=== PATIENT | female | born 1955 | race Caucasian/White ===

== ENCOUNTER → 2017-03-09 08:15 | Outpatient (CLI) | payer BC, SELFPAY ==
--- NOTE | 2017-03-09 08:19 | MM_ITS ---
MM Dig screening mamm BI w/CAD CAD Screening COMPARISON: Digital mammograms 10/27/2014 and 01/31/2016 INDICATION: There is no personal or family history of breast cancer. There is been previous biopsy left breast for benign disease TECHNIQUE: Standard CC and MLO images were obtained. R2 CAD reviewed. FINDINGS: Minimal scattered fibroglandular densities are seen throughout both breasts. There are stable small nodular density upper outer quadrant right breast and there is a benign-appearing calcification right breast. There is a mole marker left breast inner quadrant. There is no suspicious lesion and there are no suspicious microcalcifications. IMPRESSION: Stable exam with no suspicious lesion seen recommend yearly follow-up BI-RADS Category: 2 Benign Finding(s) RECOMMENDED FOLLOW-UP: 1YR - 1 YEAR FOLLOW-UP (A letter has been sent to the patient regarding results of the study.)
== END ==
PROVIDERS: Family Provider Family Medicine; Visit Provider Family Medicine
DX: Z12.31 Encounter for screening mammogram for malignant neoplasm of breast (principal)
CPT/HCPCS: 77067

== ENCOUNTER → 2017-05-24 13:28 | Outpatient (CLI) | payer BC, SELFPAY ==
[2017-05-24 15:00] LABS: Alanine Aminotransferase 41 U/L (12-78); Albumin Level 4.3 gm/dL (3.4-5.0); Alkaline Phosphatase 122 U/L (46-116); Aspartate Amino Transferase 26 U/L (15-37); Bilirubin,Direct 0.1 mg/dL (0.0-0.2); Bilirubin,Total 0.3 mg/dL (0.2-1.0); Total Protein,Serum 7.7 gm/dL (6.4-8.2)
== END ==
PROVIDERS: Visit Provider Podiatrist Foot & Ankle Surgery
DX: Z51.81 Encounter for therapeutic drug level monitoring (principal); Z79.899 Other long term (current) drug therapy
CPT/HCPCS: 36415; 80076

== ENCOUNTER 2018-05-13 08:00 | Outpatient (RCR) | payer BC, SELFPAY | END 2018-05-13 08:05 | disposition home or self-care (01) | LOC: PT 08:00 | PROVIDERS: Visit Provider Orthopaedic Surgery | DX: M67.929 Unspecified disorder of synovium and tendon, unspecified upper arm (principal) | CPT/HCPCS: 97014; 97033; 97035; 97110; 97163; G0283 ==

== ENCOUNTER 2018-07-09 08:00 | Outpatient (RCR) | payer BC, SELFPAY | END 2018-07-09 08:05 | disposition home or self-care (01) | LOC: PT 08:00 | PROVIDERS: Visit Provider Orthopaedic Surgery | DX: M67.929 Unspecified disorder of synovium and tendon, unspecified upper arm (principal); M75.81 Other shoulder lesions, right shoulder; M77.10 Lateral epicondylitis, unspecified elbow | CPT/HCPCS: 97010; 97014; 97033; 97035; 97110; 97140; 97163; G0283 ==

== ENCOUNTER 2019-01-14 08:00 | Outpatient (RCR) | payer BC, SELFPAY | END 2019-01-14 08:05 | disposition home or self-care (01) | LOC: PT 08:00 | PROVIDERS: PCP Family Medicine; Visit Provider Nurse Practitioner Family | DX: M67.929 Unspecified disorder of synovium and tendon, unspecified upper arm (principal); M75.81 Other shoulder lesions, right shoulder | CPT/HCPCS: 97010; 97014; 97016; 97033; 97035; 97110; 97140; 97163; 97164; G0283 ==

== ENCOUNTER → 2019-02-14 09:17 | Outpatient (CLI) | payer BC, SELFPAY ==
--- NOTE | 2019-02-14 09:21 | MM_ITS ---
PROCEDURE: MM DIG SCREENING MAMM BI W/CAD Patient Age:63Y CLINICAL INDICATION: SCREENING 63-year-old. Takes estrogen. Previous excisional biopsy left breast biopsy, with scar noted upper-outer quadrant portion of periareolar region. Family history unremarkable COMPARISON: DMSB DIGITAL MAMM-SCREEN BILATERAL from 03/06/2011 DMSB DIGITAL MAMM-SCREEN BILATERAL from 05/22/2012 DMSB DIG MAMM-SCREEN KASSANDRA from 09/04/2013 DMSB DIG MAMM-SCREEN KASSANDRA from 10/27/2014 BR US BREAST-RT COMPLETE W/AXILLA from 11/05/2014 DMDXUAVR DIG MAMM-DX UNI ADD VIEWS-RT from 11/05/2014 DMSB DIG MAMM-SCREEN KASSANDRA from 01/31/2016 [facility] MM Dig screening mamm BI w/CAD from 03/09/2017 TECHNIQUE: Standard CC and MLO images were obtained. R2 CAD reviewed. FINDINGS: Minimal residual fibroglandular elements with [id number] diffuse fatty replacement. No new dominant mass nor new suspicious mass. No the suspicious calcifications. Left breast appear stable.no new areas of significant concern Minimal fibroglandular elements lateral retroareolar region Right breast no significant new areas of concern when multiple studies are compared. Small area of nodularity at the lateral breast seen on mammogram from 2014 and appear stable as to other minor areas of asymmetry . Bilateral follow-up 1 year adequate IMPRESSION: No new areas of concern . Stable mammogram. Bilateral follow-up 1 year recommended, and should be emphasized/encouraged, particularly with estrogen history BI-RAD Category: 2 Benign Finding(s) FOLLOW-UP: 1YR 1 Year Follow-up (A letter has been sent to the patient regarding results of the study.) Dictated by: German Mims MD 02/17/2019 14:33 Electronically signed by German Mims MD in [place] 02/17/2019 14:33
== END ==
PROVIDERS: PCP Family Medicine; Visit Provider Obstetrics & Gynecology Gynecology
DX: Z12.31 Encounter for screening mammogram for malignant neoplasm of breast (principal)
CPT/HCPCS: 77067

== ENCOUNTER → 2019-07-07 15:42 | Outpatient (CLI) | payer BC, SELFPAY ==
--- NOTE | 2019-07-07 15:49 | XR_ITS ---
PROCEDURE: XR KNEE RT 3V CLINICAL INDICATION: RIGHT KNEE PAIN Twisting injury with pain COMPARISON: No exams were available for comparison FINDINGS: There are minimal osteoarthritic changes noted with mild spurring of the tibial spines. There is an subtle extra bony density at the medial joint space and could be due to a loose body. Mild osteoarthritic changes are present at the patellofemoral joint. IMPRESSION: Mild osteoarthritis with possible loose body at the medial joint space Dictated by: Gold Bender MD 07/07/2019 16:01 Electronically signed by Gold Bender MD in [place] 07/07/2019 16:01
== END ==
PROVIDERS: PCP Family Medicine; Visit Provider Family Medicine
DX: M25.561 Pain in right knee (principal); M25.461 Effusion, right knee
CPT/HCPCS: 73562

== ENCOUNTER 2019-09-16 08:30 | Outpatient (RCR) | payer BC, SELFPAY | END 2019-09-16 08:35 | disposition home or self-care (01) | LOC: PT 08:30 | PROVIDERS: Visit Provider Orthopaedic Surgery | DX: M25.561 Pain in right knee (principal) | CPT/HCPCS: 97010; 97014; 97033; 97035; 97110; 97140; 97163; 97530; G0283 ==

== ENCOUNTER → 2019-10-21 15:11 | Outpatient (POV) | payer BC, SELFPAY | PROVIDERS: Visit Provider Dermatology | DX: Z00.00 Encounter for general adult medical examination without abnormal findings (principal) ==

== ENCOUNTER → 2020-04-30 14:09 | Outpatient (CLI) | payer BC, SELFPAY ==
--- NOTE | 2020-04-30 | XR_ITS ---
PROCEDURE: XR HIP LT 2-3V W/PELVIS CLINICAL INDICATION: LT HIP PAIN COMPARISON: CR [id number] HIP RT 2-3V W/PELVIS IF PERFOR from 09/12/2016 FINDINGS: Minimal osteoarthritic changes are present involving the left hip. No acute fracture or dislocation. No lytic or blastic change. Pelvic phleboliths are present along with surgical clips in the pelvis and there is also minimal arthritic change of the right hip as seen on the AP view of the pelvis. IMPRESSION: Minimal osteoarthritic change of the hips overall not significantly changed Dictated by: Gold Bender MD 04/30/2020 14:58 Gold Bender MD in [place] 04/30/2020 14:58
--- NOTE | 2020-04-30 | XR_ITS ---
PROCEDURE: XR KNEE LT 3V CLINICAL INDICATION: PAIN IN LT KNEE COMPARISON: CR XR KNEE RT 3V from 07/07/2019 FINDINGS: No fracture or dislocation. No lytic or blastic change. There is normal mineralization. There are minimal osteoarthritic changes involving the medial compartment and patellofemoral joint Other findings:None. IMPRESSION: Minimal osteoarthritis Dictated by: Gold Bender MD 04/30/2020 14:59 Gold Bender MD in [place] 04/30/2020 14:59
== END ==
PROVIDERS: PCP Physician Assistant; Visit Provider Family Medicine
DX: M25.552 Pain in left hip (principal); M25.562 Pain in left knee
CPT/HCPCS: 73502; 73562

== ENCOUNTER 2020-05-31 18:55 | Emergency (ER) | payer BC, SELFPAY ==
[2020-05-31 19:05] VITALS: BP 189/96; PULSE 91; RESP 19; TEMP 36.9; O2SAT 100; BMI 32.4
--- NOTE | 2020-05-31 19:26 | HMH.EDUTC ---
[facility] [place] Disposition Clinical Impression: UTI (urinary tract infection) Qualifiers: Urinary tract infection type: site unspecified Hematuria presence: with hematuria Qualified Code(s): N39.0 - Urinary tract infection, site not specified Disposition: Home, Self-Care Condition on Discharge: Good Instructions: Urinary Tract Infection, DI for Urinary Tract Infection (UTI), Ciprofloxacin Additional Instructions: *Increase fluids. Water not Soda or Tea *Start antibiotic immediately and be sure to take as ordered for the FULL length of time although you should start to see improvement over the next 48 hours *Pyridium as needed Remember this medication will turn your urine Stephens. This is normal but it will stain what ever it gets on *You should not use Pyridium for more than 48 hours. If so , follow up with your primary physician to review urine culture and ensure that antibiotic is adequate for infection *Be SURE to follow up anytime for new or worsening symptoms with your family doctor. AND in 48 hours for urine culture results with your family doctor, if you do not have a doctor then you may call back to the [facility] for urine culture results and further treatment. We do recommend that you choose and establish care with a Primary Care Physician. AND follow up with them in 10-14 days to repeat UA to ensure infection is resolved and blood no longer present *Be sure to let your PCP know that we sent urine cultures from the [facility] so they can follow up to ensure that you area the on the correct antibiotic Call your doctor office and make appointment for 48 hours (2 days from today) to follow up and get the results of your urine culture and further treatment Return if needed Straight to ER if any life threatening Prescriptions: Ciprofloxacin HCl [Cipro 250mg Tab] 250 mg PO BID 3 Days #6 tab Transmission Status: Received by [facility] Phenazopyridine HCl [Pyridium 200mg Tablet] 200 pow PO TID #6 tab Transmission Status: Received by [facility] Referrals: Gill Lobato PA [Primary Care Provider] - As needed Time of Disposition: 19:45 Medical Decision Making - Melo Inquiry Pt receiving controlled substance: No Melo was queried for this patient: No Vital Signs: 05/31/20 19:05 05/31/20 19:53 Temperature 98.4 F 98.4 F Temperature Source Oral Pulse Rate 91 H Pulse Rate [Right Brachial] 91 H Respiratory Rate 19 19 Blood Pressure 189/96 H Blood Pressure [Right Arm] 189/96 H Blood Pressure Mean [Right Arm] 127 Blood Pressure Source [Right Arm] Automatic Cuff Blood Pressure Position [Right Arm] Sitting 02 Sat by Pulse Oximetry 100 Oxygen Delivery Method Room Air - Lab Data Lab results reviewed: Yes: I reviewed the patient's lab results. Lab Results 05/31/20 19:18: Urine Color Yellow, Urine Appearance Clear, Urine pH 5.5, Ur Specific [place] 1.005, Urine Protein Negative, Urine Glucose (UA) Negative, Urine Ketones Negative, Urine Blood 3+, Urine Nitrate Negative, Urine Bilirubin Negative, Urine Urobilinogen 0.2, Ur Leukocyte Esterase 2+ A Orders (Tests/Meds): ORDERS Category Date Time Status Urine Culture Stat Micro 05/31/20 19:00 Received Medical Decision Narrative: Patient reports that she has taken macrobid before for UTI and it did not work and did not want that medication State that her UTI got worse after taking it States that she has taken Cipro in the past without complications or reactions medications discussed pharmacy Denies history of kidney stones Discussed with patient and patient verbalized understanding to make sure to follow up with PCP in the next 48 hours for Urine cutlure results and further treatment and testing if needed [facility] [place] HPI - General Stated complaint: possible uti Time Seen by Provider: 05/31/20 19:26 Mode of Arrival: Ambulatory Source of Information: Patient Limitations: No Limitations Description of Symptoms (Recalled from Triage Doc. by RN): PATIENT C/O BURNING
[2020-05-31 19:49] LABS: Apearance,Urine Clear (Clear); Bilirubin,Urine Negative (Negative); Blood, Urine 3+ (Negative); Color,Urine Yellow (Yellow); Glucose,Urine (UA) Negative (Negative); Ketones,Urine Negative (Negative); PH,Urine 5.5 (5.0-8.5); Protein,Urine Negative (Negative); Specific Gravity, Urine 1.005 (1.005-1.030); UTC Leukocyte Esterase,Urine 2+ (Negative); UTC Nitrate,Urine Negative (Negative); Urobilinogen,Urine 0.2 EU/dl (0.2)
[2020-05-31 19:53] VITALS: BP 189/96; PULSE 91; RESP 19; TEMP 36.9; O2SAT 100
== END 2020-05-31 19:56 | disposition home or self-care (01) ==
PROVIDERS: Emergency Provider Nurse Practitioner; PCP Physician Assistant
DX: N30.00 Acute cystitis without hematuria (principal)
CPT/HCPCS: 81003; 87086; 87088; 87186; 99202; G0463

== ENCOUNTER → 2020-09-29 10:35 | Outpatient (CLI) | payer BC, SELFPAY ==
--- NOTE | 2020-09-29 10:39 | CA_ITS ---
APPROVED REPORT Right Lower Extremity Venous Study for DVT. 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 Conclusion No evidence of DVT or superficial thrombophlebitis in the veins scanned of the right lower extremity. Electronically signed by : Gold Bender MD 09/29/2020 16:08:03
== END ==
PROVIDERS: PCP Family Medicine; Visit Provider Family Medicine
DX: M79.604 Pain in right leg (principal)
CPT/HCPCS: 93971

== ENCOUNTER → 2020-11-01 08:22 | Outpatient (CLI) | payer BC, SELFPAY ==
--- NOTE | 2020-11-01 08:29 | MM_ITS ---
PROCEDURE: MM DIG SCREENING MAMM BI W/CAD Digital Breast Tomosynthesis Included CLINICAL INDICATION: SCREENING COMPARISON: MG DMSB DIG MAMM-SCREEN KASSANDRA from 01/31/2016 MG [facility] MM Dig screening mamm BI w/CAD from 03/09/2017 MG MM DIG SCREENING MAMM BI W/CAD from 02/14/2019 TECHNIQUE: Standard CC and MLO images and 3D Tomosynthesis was obtained. R2 CAD reviewed. FINDINGS: There are scattered areas of fibroglandular density Benign-appearing calcification upper outer right breast. Benign-appearing nodule upper outer right breast not significantly changed measuring 4 mm. Unremarkable appearing left breast. No suspicious appearing mass, malignant-appearing microcalcification, architectural distortion, or skin thickening. IMPRESSION: Benign findings. BI-RAD Category: 2 Benign Finding FOLLOW-UP: 1 YR 1 Year Follow-up (A letter has been sent to the patient regarding results of the study.) Dictated by: Gold Bender MD 11/11/2020 13:39 Gold Bender MD in [place] 11/11/2020 13:39
== END ==
PROVIDERS: PCP Family Medicine; Visit Provider Obstetrics & Gynecology Gynecology
DX: Z12.31 Encounter for screening mammogram for malignant neoplasm of breast (principal)
CPT/HCPCS: 77063; 77067

== ENCOUNTER → 2021-03-08 08:50 | Outpatient (POV) | payer BC, SELFPAY | PROVIDERS: Visit Provider Dermatology | DX: Z00.00 Encounter for general adult medical examination without abnormal findings (principal) ==

== ENCOUNTER → 2021-03-14 09:03 | Outpatient (CLI) | payer BC, SELFPAY | PROVIDERS: Visit Provider Nurse Practitioner | DX: Z20.822 Contact with and (suspected) exposure to COVID-19 (principal) | CPT/HCPCS: C9803; U0003; U0005 ==

== ENCOUNTER 2021-03-22 08:00 | Outpatient (RCR) | payer BC, SELFPAY | END 2021-03-22 08:05 | disposition home or self-care (01) | LOC: PT 08:00 | PROVIDERS: PCP Family Medicine; Visit Provider Family Medicine Sports Medicine | DX: M70.61 Trochanteric bursitis, right hip (principal); M70.62 Trochanteric bursitis, left hip | CPT/HCPCS: 20560; 20561; 97010; 97012; 97014; 97033; 97110; 97163; 97164; G0283 ==

== ENCOUNTER → 2021-04-12 10:12 | Outpatient (POV) | payer BC, SELFPAY | PROVIDERS: Visit Provider Dermatology | DX: Z00.00 Encounter for general adult medical examination without abnormal findings (principal) ==

== ENCOUNTER → 2021-04-27 10:15 | Outpatient (CLI) | payer BC, SELFPAY ==
--- NOTE | 2021-04-27 10:19 | US_ITS ---
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 Limited images of the liver parenchyma demonstrates normal echogenicity. The right kidney measures 10.1 cm in length. It is normal echogenicity. There is no hydronephrosis. There is a 3 cm cystic mass in the right kidney. The left kidney measures 13.4 cm in length. It is normal echogenicity. There is no hydronephrosis. There are 2 left renal cyst measuring 6.8 and 1.5 cm with ultrasound characteristics consistent with benign cysts. IMPRESSION: Bilateral renal cysts. Reviewed, Interpreted and Dictated by James Villafana III, MD Transcribed by Nadeen Blanco Authenticated by James Villafana III, MD on 04/27/2021 01:18:42 PM [facility]
== END ==
PROVIDERS: PCP Family Medicine; Visit Provider Family Medicine
DX: D41.02 Neoplasm of uncertain behavior of left kidney (principal)
CPT/HCPCS: 76770

== ENCOUNTER → 2021-07-27 07:18 | Outpatient (CLI) | payer BC, SELFPAY ==
--- NOTE | 2021-07-27 07:26 | US_ITS ---
FINAL REPORT CLINICAL HISTORY: ABD PAIN FINDINGS: Sonographic images of the right upper quadrant were obtained. The pancreas is partially obscured.The liver has increased echogenicity consistent with fatty infiltration. There is a small amount of sludge within the gallbladder without evidence of gallstones. There is no evidence of biliary ductal dilatation.The common duct measures 5 mm. The right kidney measures 9.2 cm. There is a 2.5 cm right renal cyst. IMPRESSION: Fatty infiltrated liver. 2.5 cm right renal cyst. Reviewed, Interpreted and Dictated by James Villafana III, MD Transcribed by Candy Miranda Authenticated and [facility]
== END ==
PROVIDERS: PCP Family Medicine; Visit Provider Family Medicine
DX: R10.11 Right upper quadrant pain (principal)
CPT/HCPCS: 76705

== ENCOUNTER → 2021-08-12 10:10 | Outpatient (CLI) | payer BC, SELFPAY ==
--- NOTE | 2021-08-12 10:15 | NM_ITS ---
FINAL REPORT CLINICAL HISTORY: ABD. PAIN SLUDGE IN GALLBLADDER 10:35 AM 8.12 MCI TC CHOLTEC 1.6 MCG OF CCK FINDINGS: Sequential anterior projection images of the abdomen were obtained after the intravenous injection of 8.12 mCi technetium 99m Choletec. There is normal uptake of radiotracer by the liver. The bile ducts are visualized by 10 minutes. Gallbladder activity is seen by 20 minutes. Bowel activity is noted by 15 minutes. After 1 hour, 1.6 ?g of CCK was injected intravenously for calculation of gallbladder ejection fraction. The gallbladder ejection fraction is 59%, which is within normal limits. IMPRESSION: No evidence of cystic duct or bile duct obstruction. Normal gallbladder ejection fraction of 59%. Reviewed, Interpreted and Dictated by James Villafana III, MD Transcribed by Leeann Mercedes Authenticated and [facility]
== END ==
PROVIDERS: PCP Family Medicine; Visit Provider Family Medicine
DX: R10.11 Right upper quadrant pain (principal); K82.8 Other specified diseases of gallbladder
CPT/HCPCS: 78227; A9537; J2805

== ENCOUNTER → 2022-03-06 08:11 | Outpatient (CLI) | payer BC, SELFPAY ==
--- NOTE | 2022-03-06 08:15 | MM_ITS ---
PROCEDURE INFORMATION: Exam: MG Bilateral Screening 3D Mammography Exam date and time: 03/06/2022 8:08 AM Age: 66 years old Clinical indication: Screening. No family history of breast cancer. TECHNIQUE: Imaging protocol: Bilateral Screening tomosynthesis and 2D mammography including computer-aided detection (CAD) when performed. COMPARISON: 1. MG MM DIG SCREENING MAMM BI W/CAD 11/01/2020 8:32 AM 2. MG MM DIG SCREENING MAMM BI W/CAD 02/14/2019 10:02 AM 3. MG [facility] MM Dig screening mamm BI w/CAD 03/09/2017 8:39 AM 4. MG DMSB DIG MAMM-SCREEN KASSANDRA 01/31/2016 10:25 AM FINDINGS: MAMMOGRAPHY: Breast composition: There are scattered areas of fibroglandular density. Mass: No suspicious mass. Architectural distortion: None. Calcifications: No suspicious calcifications. Asymmetric density: None. Skin thickening: None. Axillary adenopathy: None. IMPRESSION: No mammographic evidence of malignancy. Annual screening is recommended unless otherwise clinically indicated. ASSESSMENT: BI-RADS Category 1: Negative
== END ==
PROVIDERS: PCP Family Medicine; Visit Provider Registered Nurse
DX: Z12.31 Encounter for screening mammogram for malignant neoplasm of breast (principal)
CPT/HCPCS: 77063; 77067

== ENCOUNTER 2023-04-09 12:54 | Outpatient (CLI) | payer MEDICARE, SELFPAY ==
--- NOTE | 2023-04-09 12:58 | MR_ITS ---
FINAL REPORT CLINICAL HISTORY: posterior right knee pain FINDINGS: Multi planar MR imaging was performed of the right knee. The anterior and posterior cruciate ligaments are intact. The quadriceps and patellar tendons are intact. The medial and lateral menisci are intact without evidence of tear. The medial and lateral collateral ligaments appear intact. The medial and lateral retinacula appear intact. There is marrow edema at the anterior aspect of the lateral femoral condyle consistent with osteochondral injury and associated edema. There are small osteochondral defects of the undersurface of the patella. No evidence of soft tissue inflammatory reaction. IMPRESSION: Contusion and osteochondral injury of the anterior aspect of the lateral femoral condyle. Osteochondral lesion at the undersurface of the patella. Reviewed, Interpreted and Dictated by Jose Vidal MD Transcribed by Verónica Delgado Authenticated and [facility]
== END 2023-04-09 23:59 ==
LOC: RAD 12:54
PROVIDERS: PCP Family Medicine; Visit Provider Family Medicine
DX: M25.561 Pain in right knee (principal); M23.8X1 Other internal derangements of right knee
CPT/HCPCS: 73721

== ENCOUNTER 2023-07-11 11:02 | Outpatient (CLI) | payer MEDICARE, SELFPAY ==
--- NOTE | 2023-07-11 11:13 | XR_ITS ---
FINAL REPORT CLINICAL HISTORY: PAIN IN LT FOOT dropped a jar of pickles on her foot Sunday hx of fx on lateral side of foot FINDINGS: Left foot Three views were obtained. There is no acute fracture or dislocation. The joint spaces appear normal. No soft tissue abnormality is identified. IMPRESSION: No acute process. Reviewed, Interpreted and Dictated by Jose Vidal MD Transcribed by Nadeen Blanco Authenticated and [facility]
== END 2023-07-11 23:59 | disposition home or self-care (01) ==
LOC: RAD 11:04
PROVIDERS: PCP Family Medicine; Visit Provider Family Medicine
DX: M79.672 Pain in left foot (principal)
CPT/HCPCS: 73630

== ENCOUNTER 2023-08-17 10:40 | Outpatient (CLI) | payer MEDICARE, SELFPAY ==
--- NOTE | 2023-08-17 10:45 | XR_ITS ---
FINAL REPORT CLINICAL HISTORY: RT FOOT PAIN FINDINGS: Three views show no evidence of acute displaced fracture or dislocation of the visualized bony architecture. The joint spaces appear normal. There is calcaneal spurring. IMPRESSION: No acute process. Reviewed, Interpreted and Dictated by Harry Lu MD Transcribed by Nadeen Blanco Authenticated and [facility]
--- NOTE | 2023-08-17 10:45 | XR_ITS ---
FINAL REPORT CLINICAL HISTORY: RT FOOT PAIN FINDINGS: Three views show no evidence of acute displaced fracture or dislocation of the visualized bony architecture. The joint spaces appear normal. IMPRESSION: Unremarkable exam. Reviewed, Interpreted and Dictated by Harry Lu MD Transcribed by Nadeen Blanco Authenticated and [facility]
== END 2023-08-17 23:59 | disposition home or self-care (01) ==
LOC: RAD 10:41
PROVIDERS: PCP Family Medicine; Visit Provider Family Medicine
DX: M79.671 Pain in right foot (principal)
CPT/HCPCS: 73610; 73630

== ENCOUNTER 2023-09-19 07:52 | Outpatient (CLI) | payer MEDICARE, SELFPAY ==
--- NOTE | 2023-09-19 07:57 | MM_ITS ---
PROCEDURE INFORMATION: Exam: MG Bilateral Screening 3D Mammography Exam date and time: 09/19/2023 7:48 AM Age: 68 years old Clinical indication: Screening examination TECHNIQUE: Imaging protocol: Bilateral Screening tomosynthesis and 2D mammography including computer-aided detection (CAD) when performed. COMPARISON: 1. MG MM DIG SCREENING MAMM BI W/CAD 03/06/2022 8:08 AM 2. MG MM DIG SCREENING MAMM BI W/CAD 11/01/2020 8:32 AM FINDINGS: MAMMOGRAPHY: Breast composition: There are scattered areas of fibroglandular density. Mass: None. Architectural distortion: None. Calcifications: No suspicious calcifications. Asymmetric density: None. Skin thickening: None. Axillary adenopathy: None. IMPRESSION: No mammographic evidence of malignancy. Annual screening is recommended unless otherwise clinically indicated. ASSESSMENT: BI-RADS Category 1: Negative
== END 2023-09-19 23:59 | disposition home or self-care (01) ==
LOC: RAD 07:53
PROVIDERS: PCP Family Medicine; Visit Provider Nurse Practitioner Women's Health
DX: Z12.31 Encounter for screening mammogram for malignant neoplasm of breast (principal)
CPT/HCPCS: 77063; 77067

== ENCOUNTER 2023-10-16 18:29 | Emergency (ER) | payer MEDICARE, SELFPAY ==
--- NOTE | 2023-10-16 18:34 | HMH.EDGENADL ---
Discharge Plan Disposition Patient Disposition: Home, Self-Care Condition: Good Prescriptions Prescriptions: No Action losartan-hydrochlorothiazide 1 EACH tablet 1 each PO DAILY Bifidobacterium infantis 4 MG capsule 4 mg PO DAILY phenazopyridine 200 MG tablet 200 pow PO TID Qty: 6 0RF ciprofloxacin HCl 250 MG tablet 250 mg PO BID 3 Days Qty: 6 0RF Referrals Follow up/Referrals: Bhargav Farias MD [Primary Care Provider] - See instructions Clinical Impressions Clinical Impression: Fall Qualifiers: Encounter type: initial encounter Qualified Code(s): W19.XXXA - Unspecified fall, initial encounter Abrasion forearm Qualifiers: Encounter type: initial encounter Laterality: left Qualified Code(s): S50.812A - Abrasion of left forearm, initial encounter Abrasion of knee Qualifiers: Encounter type: initial encounter Laterality: left Qualified Code(s): S80.212A - Abrasion, left knee, initial encounter Print Language Print Language: Tongan Discharge ED Provider: Tyler Ibarra General Adult HPI <IAIN Muñoz - Last Filed: 10/16/23 20:02> General Chief complaint: Fall Stated complaint: AO 10-16-23 fell and hurt left knee and shoulder Time Seen by Provider: 10/16/23 18:34 History of Present Illness HPI narrative: Patient presents for evaluation of a fall. Patient was walking along the sidewalk and made a misstep falling onto her left side although she did not strike her head she was able to brace herself with her left arm but began having pain afterwards. She reports pain in the shoulder with extension and abduction, pain at the elbow and forearm to range of motion but is neurovascular intact distally. Patient also reports pain at the patella and left lateral knee but was able to bear weight and does not have an antalgic gait in the emergency department. Related Data Home Medications ?Medication ?Instructions ?Recorded ?Confirmed Bifidobacterium infantis 4 mg 4 mg PO DAILY Supplement 05/31/20 05/31/20 capsule losartan 100 1 each PO DAILY Hypertension 05/31/20 05/31/20 mg-hydrochlorothiazide 12.5 mg tablet Previous Rx's ?Medication ?Instructions ?Recorded ciprofloxacin HCl 250 mg tablet 250 mg PO BID 3 days #6 tabs 05/31/20 phenazopyridine 200 mg tablet 200 pow PO TID #6 tabs 05/31/20 Allergies Allergy/AdvReac Type Severity Reaction Status Date / Time amoxicillin Allergy Rash Verified 10/16/23 18:47 cefdinir Allergy Rash Verified 10/16/23 18:47 clindamycin Allergy Gastrointestinal Verified 10/16/23 18:47 Upset Penicillins Allergy Rash Verified 10/16/23 18:47 sulfamethoxazole Allergy Rash Verified 10/16/23 18:47 [From Septra] trimethoprim [From Septra] Allergy Rash Verified 10/16/23 18:47 PFSH <IAIN Muñoz - Last Filed: 10/16/23 20:02> [facility] Disclaimer: The information contained in this section may have been updated after the patient was seen, as this information can be updated by other users. Social History Smoking Status: Never smoker alcohol intake: never current occupational status: other Travel in the last 8 weeks: None <IAIN Muñoz - Last Filed: 10/16/23 20:02> ROS Obtained: Yes Systems reviewed as appropriate & no additional complaints except as documented Physical Exam <IAIN Muñoz - Last Filed: 10/16/23 20:02> General General appearance: alert and in no apparent distress Head Head exam: atraumatic and normal inspection Eye Eye exam: Present normal appearance, PERRL and EOMI Neck Neck exam: Absent tenderness Chest Chest inspection: Present normal inspection; Absent tenderness Respiratory Respiratory exam: Present normal lung sounds bilaterally Cardiovascular Cardiovascular exam: Present regular rate and normal rhythm Neurological Exam Neurological exam: Present alert, oriented X3, CN II-XII intact and normal gait; Absent motor sensory deficit Medical Decision Making <Austin Muñoz
[2023-10-16 18:39] VITALS: BP 148/71; PULSE 81; RESP 20; TEMP 36.6; O2SAT 97; BMI 31.8
[2023-10-16 18:45] VITALS: BP 148/71; PULSE 74; O2SAT 96
--- NOTE | 2023-10-16 18:49 | XR_ITS ---
PROCEDURE INFORMATION: Exam: XR Left Wrist Exam date and time: 10/16/2023 6:54 PM Age: 68 years old Clinical indication: Injury or trauma; Fall; Blunt trauma (contusions or hematomas); Wrist; Left TECHNIQUE: Imaging protocol: Radiologic exam of the left wrist. Views: 1 or 2 views. COMPARISON: CR XR HAND LT MIN 3V 10/16/2023 6:54 PM FINDINGS: Bones/joints: Normal. No acute fracture identified. Soft tissues: Normal. IMPRESSION: No acute findings.
--- NOTE | 2023-10-16 18:49 | XR_ITS ---
FINAL REPORT CLINICAL HISTORY: Left shoulder pain after a fall FINDINGS: LEFT SHOULDER 3 views of the left shoulder were obtained. There is no acute fracture or dislocation. Visualized joint spaces are normally aligned. Soft tissues are unremarkable. IMPRESSION: No acute bony abnormality. Reviewed, Interpreted and Dictated by Jose Vidal MD Transcribed by Angela Molina Authenticated and [facility]
--- NOTE | 2023-10-16 18:49 | XR_ITS ---
PROCEDURE INFORMATION: Exam: XR Left Humerus Exam date and time: 10/16/2023 6:54 PM Age: 68 years old Clinical indication: Injury or trauma; Fall; Blunt trauma (contusions or hematomas); Arm, upper; Left TECHNIQUE: Imaging protocol: Radiologic exam of the left humerus. Views: 2 or more views. COMPARISON: CR XR SHOULDER LT MIN 2V 10/16/2023 6:54 PM FINDINGS: Bones/joints: Normal. No acute fracture identified. Soft tissues: Normal. IMPRESSION: No acute findings.
--- NOTE | 2023-10-16 18:49 | XR_ITS ---
PROCEDURE INFORMATION: Exam: XR Left Tibia and Fibula Exam date and time: 10/16/2023 6:54 PM Age: 68 years old Clinical indication: Injury or trauma; Fall; Blunt trauma; Lower leg; Left TECHNIQUE: Imaging protocol: Radiologic exam of the left tibia and fibula. Views: 2 views. COMPARISON: CR XR FOOT LT MIN 3V 07/11/2023 11:23 AM FINDINGS: Bones/joints: Normal. No acute fracture identified. Soft tissues: Normal. IMPRESSION: No acute findings.
--- NOTE | 2023-10-16 18:49 | XR_ITS ---
PROCEDURE INFORMATION: Exam: XR Left Knee Exam date and time: 10/16/2023 6:54 PM Age: 68 years old Clinical indication: Injury or trauma; Fall; Blunt trauma; Knee; Left TECHNIQUE: Imaging protocol: Radiologic exam of the left knee. Views: 1 or 2 views. COMPARISON: CR XR KNEE LT 3V 04/30/2020 2:21 PM FINDINGS: Bones/joints: Normal. No fracture evident. Soft tissues: Normal. IMPRESSION: No acute findings.
--- NOTE | 2023-10-16 18:49 | XR_ITS ---
PROCEDURE INFORMATION: Exam: XR Left Forearm Exam date and time: 10/16/2023 6:54 PM Age: 68 years old Clinical indication: Injury or trauma; Fall; Blunt trauma (contusions or hematomas); Arm, lower; Left TECHNIQUE: Imaging protocol: Radiologic exam of the left forearm. Views: 2 views. COMPARISON: CR XR HAND LT MIN 3V 10/16/2023 6:54 PM FINDINGS: Bones/joints: Normal. No acute fracture identified. Soft tissues: Normal. IMPRESSION: No acute findings.
--- NOTE | 2023-10-16 18:49 | XR_ITS ---
PROCEDURE INFORMATION: Exam: XR Left Hand Exam date and time: 10/16/2023 6:54 PM Age: 68 years old Clinical indication: Injury or trauma; Fall; Blunt trauma (contusions or hematomas); Hand; Left TECHNIQUE: Imaging protocol: Radiologic exam of the left hand. Views: 3 or more views. COMPARISON: CR XR FOREARM LT 2V 10/16/2023 6:54 PM FINDINGS: Bones/joints: Normal. No acute fracture identified. Soft tissues: Normal. IMPRESSION: No acute findings.
--- NOTE | 2023-10-16 18:49 | XR_ITS ---
PROCEDURE INFORMATION: Exam: XR Left Elbow Exam date and time: 10/16/2023 6:54 PM Age: 68 years old Clinical indication: Injury or trauma; Fall; Blunt trauma (contusions or hematomas); Elbow; Left TECHNIQUE: Imaging protocol: Radiologic exam of the left elbow. Views: 3 or more views. COMPARISON: CR XR SHOULDER LT MIN 2V 10/16/2023 6:54 PM FINDINGS: Bones/joints: Normal. No acute fracture identified. Soft tissues: Normal. IMPRESSION: No acute findings.
--- NOTE | 2023-10-16 18:49 | XR_ITS ---
PROCEDURE INFORMATION: Exam: XR Left Femur Exam date and time: 10/16/2023 6:54 PM Age: 68 years old Clinical indication: Injury or trauma; Fall; Blunt trauma; Thigh or upper leg; Left TECHNIQUE: Imaging protocol: Radiologic exam of the left femur. Views: 2 views. COMPARISON: CR XR PATELLA LT 2V 10/16/2023 6:54 PM FINDINGS: Bones/joints: Unremarkable. No acute fracture. Soft tissues: Unremarkable. IMPRESSION: No acute findings.
[2023-10-16 19:32] VITALS: BP 138/61; PULSE 87; O2SAT 99
--- NOTE | 2023-10-16 19:43 | PC.NURSE ---
NO NEEDS VOICED AT THIS TIME. CALL LIGHT IS WITHIN REACH.
[2023-10-16 20:13] VITALS: BP 123/60; PULSE 79; RESP 18; TEMP 36.7; O2SAT 97
== END 2023-10-16 20:14 | disposition home or self-care (01) ==
PROVIDERS: Emergency Provider Emergency Medicine; PCP Family Medicine
DX: M79.602 Pain in left arm (principal); M25.562 Pain in left knee; S80.212A Abrasion, left knee, initial encounter; S50.812A Abrasion of left forearm, initial encounter; W18.30XA Fall on same level, unspecified, initial encounter
CPT/HCPCS: 73030; 73060; 73080; 73090; 73100; 73130; 73552; 73560; 73590; 99284

== ENCOUNTER 2023-10-29 15:38 | Outpatient (CLI) | payer MEDICARE, SELFPAY ==
--- OUTSIDE RECORDS SUMMARY | 2023-10-29 15:42 | XMS_ITS ---
[facility] [address] [place] [id number] Care Team Providers Care Food Service Supervisor Name Role Phone Bhargav Farias Primary Care Provider [phone] ALLERGIES Allergen (clinical drug ingredient) Drug/Non Drug Allergy documented on EMR Reaction Allergy Type Onset Date Status amoxicillin Amoxicillin hives Drug Allergy Act odette cefdinir Cefdinir hives Drug Allergy Active lisinopril Lisinopril cough Drug Allergy Activ e clindamycin Clindamycin upset stomach Drug Allergy Active REASON FOR VISIT fell in driveway, follow up ER MEDICATIONS Medication SIG (Take, Route, Frequency, Duration) Notes Start Date End Date Status Myrbetriq 50 MG 1 tablet Orally once daily for 30 days Active Prevacid 24HR 15 MG 2 cap(s) orally once a day Active Metoprolol Succinate ER 50 MG 1 tablet Orally Once a day for 30 days Active amLODIPine Besylate 5 MG 1 tablet orally once a day Active Irbesartan-hydroCHLOROthia zide 300-12.5 MG 1 tablet Orally Once a day for 30 days Active Probiotic Formula Ac tive Fluconazole 100 MG 1 tablet Orally once daily for 7 days 05/04/2023 Active Flonase Allergy Relief 50 MCG/ACT 1 spray in each nostril Nasally Once a day 01/24/2023 Active Silvadene 1 % 1 application Clinical Data Associate ally Once a day 10/19/2023 Active VITAL SIGNS Weight 189 lbs 10/19/2023 Blood pressure systolic 142 mm Hg 10/19/19 24 Blood pressure diastolic 80 mm Hg 024 Heart Rate 57 /min 10/19/2023 Height 63 in 10/19/2023 BMI 33.48 kg/m2 10/19/2023 Encounters Encounter Location Date Provider Diagnosis [facility] [address] [place] [address] [address] [place] [id number] 10/19/2023 [place] Unspecified fall, initial encounter W19.XXXA ; Unspecified place in unspecified non-institutional (private) residence as the place of occurrence of the external cause Y92.009 ; Abrasion of left forearm, initial encounter S50.812A and Acute pain of left shoulder M25.512 ASSESSMENTS Encounter Date Diagnosis Assessment Notes Treatment Notes Treatment Clinical Notes 10/19/2023 Unspecified fall, initial encounter (ICD-10 - W19.XXXA) 10/19/[address] in unspecified non-institutional (private) residence as the place of occurrence of the external cause (ICD-10 - Y92.009) 10/19/2023 Abrasion of left forearm, initial encounter (ICD-10 - S50.812A) 10/19/2023 Acute pain of left shoulder (ICD-10 - M25.512) symptomatic treatment of pain. Return if worsening of pain or developement of new symptoms PLAN OF TREATMENT Medication Medication Name Sig Start Date Stop Date Notes Silvadene 1 % 1 application Externally Once a day 10/19/19 24 Treatment Notes Assessment Notes Acute pain of left shoulder symptomatic treatment of pain. Return if worsening of pain or developement of new symptoms Next Appt Details Follow Up: via phone to repo rt progress, Reason: Provider Name:Bhargav Lao , 10/29/2023 02:45:00 PM, [address] [place] [address], [address], [place], [phone], Progress Notes * Examination Category Sub-Category Detail Notes General Examination Extremities: limited abdu ction of left shoulder to 90 degrees, minimal tenderness to palpation over the proximal biceps tendon, normal supination of left hand General Appearance: NAD Skin: 4 cm x 6 cm abrasion with minimal surrounding dull skin redness on the left forearm, small skin wound over the anterior left knee History and Physical Notes * HPI (History of Present Illness) Category Sub-Category Detail Notes HPI Here for follow up on: 4 [facility] ER visit, see printed docs. Pt went to er for fall, states that all of the x-rays were normal. Pt states she has a would below lt elbow and on lt knee, just wants make sure there is no infection
--- OUTSIDE RECORDS SUMMARY | 2023-10-29 15:42 | XMS_ITS ---
[facility] Address [address] [place] [id number] Care Team Providers Care Heating And Ventilating Drafter Name Role Phone Bhargav Farias Primary Care Provider ALLERGIES Allergen (clinical drug ingredient) Drug/Non Drug Allergy documented on EMR Reaction Allergy Type Onset Date Status amoxicillin Amoxicillin hives Drug Allergy Act odette cefdinir Cefdinir hives Drug Allergy Active lisinopril Lisinopril cough Drug Allergy Activ e clindamycin Clindamycin upset stomach Drug Allergy Active REASON FOR VISIT blisters on tongue, wrist MEDICATIONS Medication SIG (Take, Route, Frequency, Duration) Notes Start Date End Date Status Metoprolol Succinate ER 50 MG TAKE 1 TABLET BY MOUTH ONCE DAILY for 30 Active amLODIPine Besylate 5 MG 1 tablet orally once a day Active Myrbetriq 50 MG 1 tablet Orally once daily for 30 days Active Irbesartan-hydroCHLOROthiaz brittany 300-12.5 MG 1 tablet Orally Once a day for 30 days Active Fluconazole 100 MG 1 tablet Orally once daily for 7 days 05/04/2023 Active Flonase Allergy Relief 50 MCG/ACT 1 spray in each nostril Nasally Once a day 01/24/2023 Active Prevacid 24HR 15 MG 2 cap(s) orally once a day Active Probiotic Formula Ac tive VITAL SIGNS Weight 189.6 lbs 10/29/2023 Blood pressure systolic 130 mm Hg 10/29/19 24 Blood pressure diastolic 74 mm Hg 024 Heart Rate 66 /min 10/29/2023 Height 63 in 10/29/2023 BMI 33.58 kg/m2 10/29/2023 Encounters Encounter Location Date Provider Diagnosis [facility] [address] [facility] [address] [facility] [address] [place] [id number] 10/29/2023 Bhargav Farias Left wrist pain M25.532 and Acute rhinitis J00 ASSESSMENTS Encounter Date Diagnosis Assessment Notes Treatment Notes Treatment Clinical Notes 10/29/2023 Left wrist pain (ICD-10 - M25.532) Thumb spica splint 10/29/2023 Acute rhinitis (ICD-10 - J00) fluids, rest, supportive measures for fever/symptom relief PLAN OF TREATMENT Treatment Notes Assessment Notes Left wrist pain Thumb spica splint Acute rhinitis fluids, rest, suppor tive measures for fever/symptom relief Pending Test Test Name Order Date CBC Fingerstick (in house) 10/29/2023 X ray : Wrist, left 10/29/2023 Next Appt Details Follow Up: via phone to repo rt test results, Reason: Provider Name:Bhargav Lao terra, 10/29/2023 02:45:00 PM, [address] [facility] [address] [facility], [address], [place], [phone], Progress Notes * Examination Category Sub-Category Detail Notes ENT/Respiratory Heart : RRR, normal S1 S 2 Lungs: clear to auscultatio n bilaterally General Appearance: NAD Nose : nares patent, clear rhinorrhea Eyes: PERRLA, sclera clear Wrist / Hand Inspection: no swelling, red ness or ecchymosis Wrist/Hand: left Range of motion: normal flexion and e xtension, normal ulnar and radial deviation Palpation: tender in anatomical snuff box History and Physical Notes * HPI (History of Present Illness) Category Sub-Category Detail Notes ENT/respiratory sore throat Pt states that s he woke up this morning with as sore throat and noticed blister on the side of her tongue. Pt states that both have improved at this time but she wants to make sure it is nothing Wrist/Hand pain Pt complains of ongoing lt wrist pain from fall 2 weeks ago. States that it hurts to hold anything in her as well
--- OUTSIDE RECORDS SUMMARY | 2023-10-29 15:43 | XMS_ITS ---
Author Organization [facility] Address [address] [facility] [address] [facility] [address] [place] [phone] Care Team Providers Care Lacquer Mixer Name Role Phone Bhargav Farias Primary Care Provider [phone] REASON FOR VISIT Test results Encounters Encounter Location Date Provider Diagnosis [facility] [address] [facility] [address] [place] [phone] 08/18/2023 Bhargav Farias PLAN OF TREATMENT Next Appt Details Provider Name:Bhargav Lao ry, 10/29/2023 02:45:00 PM, [address] [facility], [address], [place], [phone],
--- OUTSIDE RECORDS SUMMARY | 2023-10-29 15:43 | XMS_ITS | Patient Health Record ---
[facility] [address] [facility] [address] [place] [id number] Care Team Providers Care Network Manager Name Role Phone Bhargav Farias Primary Care Provider Gill Lobato Unavailable [phone] ALLERGIES Allergen (clinical drug ingredient) Drug/Non Drug Allergy documented on EMR Reaction Allergy Type Onset Date Status amoxicillin Amoxicillin hives Drug Allergy Act odette cefdinir Cefdinir hives Drug Allergy Active lisinopril Lisinopril cough Drug Allergy Activ e clindamycin Clindamycin upset stomach Drug Allergy Active RESULTS Component Value Reference Range Notes CBC Venipuncture (in house) Reviewed date:11/21/2022 11:46:31 AM Interpretation: Performing Lab: Notes/Report: wbc 10.7 3.5 - 10 lymph 17.1 15 - 50 mid 5.0 2 - 15 gran 77.9 35 - 80 rbc 4.84 3.5 - 5.5 hgb 14.1 11.5 - 16.5 hct 41.2 35 - 55 mcv 85.2 75 - 100 mch 29.2 25 - 35 mchc 34.3 31 - 38 platlet 271 100 - 400 Rapid Strep- Inhouse Reviewed date:01/24/2023 10:54:56 AM Interpretation: Performing Lab: Notes/Report: strep test Neg CBC Fingerstick (in house) Reviewed date:01/24/2023 10:54:48 AM Interpretation: Performing Lab: Notes/Report: wbc 7.0 3.5 - 10 lym 28.4% 15 - 50 mid 7.1% 2 - 15 gran 64.5% 35 - 80 rbc 5.19 3.5 - 5.5 hgb 15.2 11.5 - 16.5 hct 45.0 35 - 55 mcv 86.7 75 - 100 mch 29.2 25 - 35 mchc 33.7% 31 - 38 plat 213 100 - 400 Urinalysis - Inhouse Reviewed date:11/14/2022 02:39:54 PM Interpretation: Performing Lab: Notes/Report: Color/Clarity yellow/clear Leuk Neg Nitrite Neg Urobili 3.2 Protein Neg pH 6.5 Blood Trace-intact Sp. Gr. <1.005 Ketone Neg Bili Neg Gluc Neg bacteria WBC RBC CBC Venipuncture (in house) Reviewed date:11/16/2022 08:18:24 AM Interpretation:Normal Performing Lab: Notes/Report: Normal wbc 7.8 3.5 - 10 lymph 24.9 15 - 50 mid 6.4 2 - 15 gran 68.7 35 - 80 rbc 4.79 3.5 - 5.5 hgb 14.0 11.5 - 16.5 hct 41.3 35 - 55 mcv 86.3 75 - 100 mch 29.3 25 - 35 mchc 34.0 31 - 38 platlet 277 100 - 400 P-Urology Cytology Reviewed date:11/17/2022 04:23:03 PM Interpretation:Normal Performing Lab: Notes/Report: Urology Cytology View Report Patient Name: MIREYA ALSTON Age-Sex-: 67y F 1955 Procedure Date: 11/14/2022 Accession Date: 11/15/2022 Pt Acct#: Report Date: 11/16/2022 Location: OFFICE Physician(s): Bhargav Farias MD C Y T O P A T H O L O G Y R E P O R T DIAGNOSIS: Urine for cytology, void: Negative for high grade urothelial carcinoma. Paucicellular specimen consisting of benign urothelial and squamous cells. Ventura Landon MD electronically signed 11/16/2022 03:53 PM Microscopic Description: Microscopic examination conducted. A ThinPrep slide is examined. Clinical History: Other microscopic hematuria (R31.29) Specimen List: Voided Urine for Cytology and UroVysion/FISH 5 ml of cloudy pale yellow fluid received Unless specified otherwise above, the quality of the H and E and any other stains performed is satisfactory, and any internal or external positive and negative controls react appropriately. End of Report Technical services provided by [facility], [facility], d/b/a [facility], [address] [place] [address] , [place] [address] Julius Simmons MD, Travel Coordinator. Case reviewed and diagnosis rendered at [facility], [facility], [facility]/b/[facility], [address] [place] [address] Ventura Landon MD, Digital Marketing Analyst. CONFIDENTIAL Patient Name: MIREYA ALSTON Age-Sex-: 67y F 1955 Procedure Date: 11/14/2022 Accession Date: 11/15/2022 Pt Acct#: Report Date: 11/17/2022 Location: OFFICE Physician(s): Bhargav Farias MD [facility] Oncology FISH Report (UroVysion) INTERPRETATION Voided Urine: NORMAL FISH COMMENTS Voided Urine: FISH with centromere probes for chromosomes 3(D3Z1), 7(D7Z1), 17(D17Z1) and a locus specific probe for 9p21 showed a NORMAL SIGNAL PATTERN. No evidence of urothelial carcinoma. This test result does not rule out the possibility that the patient may have a low grade (i.e. grade 1 or 2) non-invasive papillary urothelial carcinoma. Some patients with low grade non-invasive papillary urothelial carcinoma do not have abnormalities with this FISH test. This test was performed using automated image analysis. FISH analysis was performed via modified FDA-approved testing on urothelial cells using the following quantitative probes: CEP3 (R4D9-Cgqawlkkrs 3), CEP7 (G9Q6-Ihtxwhikma 7), CEP17 (M14B9-Addhvqcerf 17) and CDKN2A/p16 (9p21) ([employer] [place], [place]). Vladislav Richardson MD electronically signed 11/17/2022 11:37:55 AM TECHNICAL RESULTS - SPECIMEN INFORMATION Voided Urine: Total Diploid: 24 Single Gain: 4 Total Abnormal: 0 Zero Gold: 0 Clinical History: Other microscopic hematuria (R31.29) Specimen List: Voided Urine for Cytology and UroVysion/FISH 5 ml of cloudy pale yellow fluid received Original report may contain illustrative images, which are not display compatible on this electronic information system. Some pathology reports may include tabular data or cancer checklists which also can not be displayed. A copy of the original report incorporating those items is available from the Pathology Department/[facility] and can be obtained upon request. End of Report Technical services provided by [facility], [facility], d/b/a [address] , [place] [address] Julius Simmons MD, Travel Coordinator. Case reviewed and diagnosis rendered at [facility], [facility], d/b/a [address] , [place] [address] Julius Simmons MD, Travel Coordinator. CONFIDENTIAL P-Basic Metabolic Panel (BMP ) Reviewed date:11/16/2022 08:18:24 AM Interpretation:Glu 103 Performing Lab: Notes/Report: Test performed by [facility] [address] [place] [address] , [address], [place] [address] Ralph Wu MD, Travel Coordinator CLIA: [id number] Sodium 139 135-145 mEq/L Potassium 4.5 3.5-5.3 mEq/L Chloride 103 97-108 mEq/L CO2 26 22-32 mEq/L Glucose 103 65-99 mg/dL BUN 21 8-23 mg/dL Creatinine 0.95 0.50-1.00 mg/dL Calcium 9.9 8.6-10.4 mg/dL eGFR by Creatinine 66 >59 mL/min/1.73m2 P-Culture, Urine Reviewed date:11/16/2022 03:19:06 PM Interpretation:No Significant Growth Performing Lab: Notes/Report: Test performed by [facility] [address] [place] [address] [address], [address], [place] [address] Ralph Wu MD, Travel Coordinator CLIA: [id number] Specimen Source Urine - Void Culture, Urine See Below No Significan t Growth P-Ferritin Reviewed date:11/16/2022 08:18:24 AM Interpretation:Normal Performing Lab: Notes/Report: Test performed by [facility] [address] [place] [address] , [address], [place] [address] Ralph Wu MD, Travel Coordinator CLIA: [id number] Ferritin 49.6 13.0-301.0 ng/mL MRI : Knee, right, without c ontrast Reviewed date:04/11/2023 08:14:05 AM Interpretation:View Results Performing Lab: Notes/Report: View Results Rapid Strep- Inhouse Reviewed date:05/11/2023 04:24:57 PM Interpretation: Performing Lab: Notes/Report: strep test Neg CBC Fingerstick (in house) Reviewed date:05/11/2023 04:25:10 PM Interpretation: Performing Lab: Notes/Report: wbc 15.2 3.5 - 10 lym 16.3 15 - 50 mid 4.9 2 - 15 gran 78.8 35 - 80 rbc 4.81 3.5 - 5.5 hgb 14.2 11.5 - 16.5 hct 40.9 35 - 55 mcv 85.0 75 - 100 mch 29.6 25 - 35 mchc 34.8 31 - 38 plat 207 100 - 400 X ray : Foot, left Reviewed date:07/12/2023 08:49:37 AM Interpretation:no acute process Performing Lab: Notes/Report: no acute process P-Uric Acid Reviewed date:07/12/2023 08:49:23 AM Interpretation:7.7 Performing Lab: Notes/Report: Test performed by [facility] [address] [place] [address] , [address], [place] [address] Ralph Wu MD, Travel Coordinator CLIA: [id number] Uric Acid 7.7 2.4-7.0 mg/dL P-Microalbumin/Creatinine, R andom Urine Sample Reviewed date:07/23/2023 10:33:21 AM Interpretation:satisfactory Performing Lab: Notes/Report: Test performed by [facility] [address] [place] [address] [address]deep Beck, [address], [place] [address] Ralph Wu MD, Travel Coordinator CLIA: [id number] Albumin/Creatinine Ratio, Urine See Comment 0-30 ug/mg Unable to calculate Urine Albumin/Creatinine Ratio when urine creatinine or urine albumin fall outside established reportable range. Microalbumin, Urine, Random <0.3 Creatinine, Urine 95.7 P-Parathyroid Hormone (PTH) Intact Reviewed date:07/12/2023 08:49:23 AM Interpretation:Normal Performing Lab: Notes/Report: Test performed by [facility] [address] [place] [address] , [address], [place] [address] Ralph Wu MD, Travel Coordinator CLIA: [id number] Parathyroid Hormone (PTH) Intact 62.5 15.0-65.0 pg/mL P-Phosphorus Reviewed date:07/12/2023 08:49:22 AM Interpretation:Normal Performing Lab: Notes/Report: Test performed by [facility] [address] , [address], [place] [address] Ralph Wu MD, Travel Coordinator CLIA: [id number] Phosphorus 3.5 2.5-4.5 mg/dL P-Lipid Panel Reviewed date:07/12/2023 08:49:22 AM Interpretation:hdl 37, chol/hdl 4.68, non-hdl 136 Performing Lab: Notes/Report: Test performed by [facility] [address] , [address], [place] [address] Ralph Wu MD, Travel Coordinator CLIA: [id number] Cholesterol 173 <200 mg/dL Triglycerides 107 <150 mg/dL HDL Cholesterol 37 >39 mg/dL Cholesterol / HDL Ratio 4.68 0.00-4.44 Ratio Non-HDL Cholesterol 136 <130 mg/dL LDL Cholesterol (Calculation) 115 <130 mg/dL LDL Cholesterol Levels* Less than 100 mg/dL Optimal 100 to 129 mg/dL Near Optimal/ Above Optimal 130 to 159 mg/dL Borderline High 160 to 189 mg/dL High 190 mg/dL and above Very High * Categories as recommended by the 2004 ATPIII guidelines LDL/HDL Ratio 3.1 <3.3 Ratio LDL Cholesterol Patient History Test Date: 07/11/2023 LDL Results: 115 Units: mg/dL % Change: - P-Comprehensive Metabolic Pa karma (CMP) Reviewed date:07/12/2023 08:49:22 AM Interpretation:gluc 107, creat 1.09, gfr 56 Performing Lab: Notes/Report: Test performed by [facility], [address] , [address], [place] [address] Ralph Wu MD, Travel Coordinator CLIA: [id number] Sodium 140 135-145 mEq/L Potassium 4.4 3.5-5.3 mEq/L Chloride 103 97-108 mEq/L CO2 24 22-32 mEq/L Glucose 107 65-99 mg/dL BUN 22 8-23 mg/dL Creatinine 1.09 0.50-1.00 mg/dL Calcium 10.0 8.6-10.4 mg/dL eGFR by Creatinine 56 >59 mL/min/1.73m2 Protein 6.9 6.0-8.3 g/dL Albumin 4.6 3.5-5.3 g/dL Alkaline Phosphatase 116 35-121 IU/L ALT (SGPT) 44 <5-47 IU/L AST (SGOT) 30 <5-40 IU/L Bilirubin, Total 0.4 <0.2-1.2 mg/dL A/G Ratio 2.0 1.1-2.5 mg/dL X ray : Foot, right Reviewed date:08/20/2023 02:11:46 PM Interpretation:unremarkable Performing Lab: Notes/Report: unremarkable X ray : Ankle, right Reviewed date:08/20/2023 02:11:31 PM Interpretation:nothing acute, calcaneal spurring Performing Lab: Notes/Report: nothing acute, calcaneal spurring MEDICATIONS Medication SIG (Take, Route, Frequency, Duration) Notes Start Date End Date Status Fluconazole 100 MG 1 tablet Orally once daily for 7 days 05/04/2023 Active Flonase Allergy Relief 50 MCG/ACT 1 spray in each nostril Nasally Once a day 01/24/2023 Active Prevacid 24HR 15 MG 2 cap(s) orally once a day Active Metoprolol Succinate ER 50 MG TAKE 1 TABLET BY MOUTH ONCE DAILY for 30 Active Probiotic Formula Ac tive amLODIPine Besylate 5 MG 1 tablet orally once a day Active Myrbetriq 50 MG 1 tablet Orally once daily for 30 days Active Irbesartan-hydroCHLOROthiaz brittany 300-12.5 MG 1 tablet Orally Once a day for 30 days Active IMMUNIZATIONS Vaccine Route Administration Date Status Comme nts COVID 19 Moderna Unknown 04/14/2020 Administered COVID 19 Moderna Unknown 05/19/2020 Administered COVID 19 Moderna Unknown 01/05/2021 Administered DT, 7 YEARS OR OLDER Unknown 04/23/1996 Administered DT, 7 YEARS OR OLDER Unknown 11/16/2004 Administered Fluzone High Dose (65yr and older) IM Intramuscular 11/14/2022 Administered Fluzone Quad (6months&older) IM Intramuscular 02/14/2019 Administered Fluzone Quad (6months&older) IM Intramuscular 01/23/2020 Administered Fluzone Quad (6months&older) IM Intramuscular 01/27/2021 Administered Fluzone Quad (6months&older) IM Intramuscular 01/17/2022 Administered Hepatitis A (adult) Unknown 11/21/2004 Administered Hepatitis A (adult) Unknown 06/21/2005 Administered Prevnar (PCV20) IM Intramuscular 11/14/2022 Administered Tetanus Tdap-Adacel (over 7yrs) IM Intramuscular 12/22/2009 Administered xFlu shot-36 months and older IM Intramuscular 12/30/2005 Administered xFlu shot-36 months and older IM Intramuscular 01/04/2007 Administered xFlu shot-36 months and older IM Intramuscular 12/22/2009 Administered SOCIAL HISTORY Sex Assigned At : Social History Observation Description Sex Assigned At Unknown PROBLEMS Problem Type ICD Code Onset Dates Problem Status W/U Status Risk SNOMED Code Notes Problem Essential hypertension (I10) Active confirmed 15902032 Problem Restless leg syndrome (G25.81) Active confirmed 61901580 Problem OAB (overactive bladder) (N32.81) Active confirmed 529474740 Problem Seasonal allergic reaction (J30.2) Active confirmed Seasonal allergic rhinitis (317030855) Problem Other chronic pain (G89.29) Active confirmed 78755284 Problem Chronic GERD (K21.9) Active confirmed 516741252 Problem Joint laxity of right knee (M23.8X1) Active confirmed 454481912 Problem Non morbid obesity (E66.9) Active confirmed 535952427 Problem Seasonal allergic rhinitis, unspecified trigger (J30.2) Active confirmed 373923169 Problem Allergic rhinitis, unspecified seasonality, unspecified trigger (J30.9) Active confirmed 05437719 Problem Stage 3a chronic kidney disease (CKD) (N18.31) Active confirmed 370864816 VITAL SIGNS Heart Rate 66 /min 10/29/2023 Blood pressure diastolic 74 mm Hg 10/29/2023 Height 63 in 10/29/2023 Blood pressure systolic 130 mm Hg 10/29/2023 Weight 189.6 lbs 10/29/2023 BMI 33.58 kg/m2 10/29/2023 Encounters Encounter Location Date Provider Diagnosis [facility] [address] [place], [place] [id number] 11/14/2022 Bhargav Milford Essential hypertensi on I10 ; Stage 3a chronic kidney disease (CKD) N18.31 ; Restless leg syndrome G25.81 ; OAB (overactive bladder) N32.81 ; Microscopic hematuria R31.29 and Encounter for immunization Z23 [facility] [address] [place], [place] [id number] 11/16/2022 Bhargav Milford [facility] [address] [place], [place] [id number] 11/17/2022 Bhargav Milford [facility] [address] [place], [place] [id number] 11/21/2022 Bhargav Milford Upper respiratory tr act infection, unspecified type J06.9 [facility] [address] [place], [place] [id number] 11/23/2022 Bhargav Milford [facility] [address] [place], [place] [id number] 01/18/2023 Bhargav Milford [facility] [address] [place], [place] [id number] 01/24/2023 Gill Lobato Seasonal allergic reaction J30.2 [facility] [address] [place], [place] [id number] 03/12/2023 Bhargav Milford Pain in right knee M25.561 ; Joint laxity of right knee M23.8X1 and Essential hypertension I10 [facility] [address] [place], [place] [id number] 03/26/2023 Bhargav Milford Essential hypertensi on I10 [facility] [address] [place] [id number] 04/11/2023 Bhargav Milford [facility] [address] [place] [id number] 04/12/2023 Bhargav Milford Essential hypertensi on I10 ; Pain in right knee M25.561 and Pain of knee joint with osteochondral injury M25.569 [facility] [address] [place], [place] [id number] 05/04/2023 Bhargav Milford Essential hypertensi on I10 ; Chronic GERD K21.9 and Sore throat J02.9 [facility] [address] [place], [place] [id number] 05/11/2023 Bhargav Milford URI, acute J06.9 [facility] [address] [place], [place] [id number] 07/11/2023 Bhargav Milford Pain in left foot M79.672 ; Essential hypertension I10 and Stage 3a chronic kidney disease (CKD) N18.31 [facility] [address] [place], [place] [id number] 07/12/2023 Bhargav Milford [facility] [address] [place] [id number] 07/17/2023 Bhargav Milford [facility] [address] [facility] [address] [place], [place] [id number] 07/17/2023 Bhargav Milford [facility] [address] [facility] [address] [place], [place] [id number] 08/17/2023 Bhargav Milford Pain in right foot M79.671 [facility] [address] [facility] [address] [place], [place] [id number] 08/18/2023 Bhargav Milford [facility] [address] [facility] [address] [place], [place] [id number] 10/19/2023 Bhargav Milford Unspecified fall, initial encounter W19.XXXA ; Unspecified place in unspecified non-institutional (private) residence as the place of occurrence of the external cause Y92.009 ; Abrasion of left forearm, initial encounter S50.812A and Acute pain of left shoulder M25.512 [facility] [address] [place], [place] [id number] 10/29/2023 Bhargav Milford Left wrist pain M25. 532 and Acute rhinitis J00 ASSESSMENTS Encounter Date Diagnosis Assessment Notes Treatment Notes Treatment Clinical Notes 11/14/2022 Essential hypertension (ICD-10 - I10) 11/14/2022 Stage 3a chronic kidney disease (CKD) (ICD-10 - N18.31) 11/21/2022 Upper respiratory tract infection, unspecified type (ICD-10 - J06.9) 01/24/2023 Seasonal allergic reaction (ICD-10 - J30.2) 03/12/2023 Pain in right knee (ICD-10 - M25.561) 03/12/2023 Joint laxity of right knee (ICD-10 - M23.8X1) 03/26/2023 Essential hypertension (ICD-10 - I10) 04/12/2023 Essential hypertension (ICD-10 - I10) 04/12/2023 Pain in right knee (ICD-10 - M25.561) MRI reviewed with patient, plan ortho eval 05/04/2023 Chronic GERD (ICD-10 - K21.9) 05/11/2023 URI, acute (ICD-10 - J06.9) 07/11/2023 Essential hypertension (ICD-10 - I10) 07/11/2023 Pain in left foot (ICD-10 - M79.672) 05/04/2023 Essential hypertension (ICD-10 - I10) 08/17/2023 Pain in right foot (ICD-10 - M79.671) 10/29/2023 Acute rhinitis (ICD-10 - J00) fluids, rest, supportive measures for fever/symptom relief 10/29/2023 Left wrist pain (ICD-10 - M25.532) Thumb spica splint 10/19/2023 Unspecified fall, initial encounter (ICD-10 - W19.XXXA) 10/19/[address] unspecified non-institutional (private) residence as the place of occurrence of the external cause (ICD-10 - Y92.009) 10/19/2023 Abrasion of left forearm, initial encounter (ICD-10 - S50.812A) 05/04/2023 Sore throat (ICD-10 - J02.9) 07/11/2023 Stage 3a chronic kidney disease (CKD) (ICD-10 - N18.31) 04/12/2023 Pain of knee joint with osteochondral injury (ICD-10 - M25.569) 03/12/2023 Essential hypertension (ICD-10 - I10) Blood pressure journal 11/14/2022 Restless leg syndrome (ICD-10 - G25.81) 11/14/2022 OAB (overactive bladder) (ICD-10 - N32.81) 10/19/2023 Acute pain of left shoulder (ICD-10 - M25.512) symptomatic treatment of pain. Return if worsening of pain or developement of new symptoms 11/14/2022 Microscopic hematuria (ICD-10 - R31.29) 11/14/2022 Encounter for immunization (ICD-10 - Z23) PLAN OF TREATMENT Pending Test Test Name Order Date CBC Fingerstick (in house) 10/29/2023 X ray : Wrist, left 10/29/2023 Next Appt Details Provider Name:Bhargav ellison, 10/29/2023 02:45:00 PM, [address], [address], [place], [id number], Insurance Providers Payer Name Payer Address Payer Phone Subscriber Number Group Number Insured Name Patient Relationship to Insured Coverage Start Date Coverage End Date [employer] (MEDICAR E) [address] [address] [place] [address] [id number] ARIANNA ALSTON Spouse - patient is the spouse of the insured MEDICATIONS ADMINISTERED Medication Instructions Date of Administration Dosage Notes Bicillin LA 1,200,000 01/27/2013 celestone 11/20/2011 Depo- Medrol 40 mg/ml 11/16/2006 1 cm3 Dexamethasone 09/18/2007 1 cm3 MEDICAL (GENERAL) HISTORY Medical History History ICD Code Hypertension Seasonal Allergies Esophageal Reflux Plantar Fascitis Lumbar Disc Disease Lumbar Facet Arthropathy Osteoarthritis, Hips and Knees Fatty Liver Surgical History Surgery Date(Month/Year) LT Breast Cyst Removal [facility]- [facility] 10/28/2010 Hysterectomy & Bladder Stapled 2 RT Shoulder 10/30/2012 RT Bicep Repair 09/11/2018 Hospitalization History Reason Date(Month/Year) Vertigo- [facility] ER 09/22/2018
--- NOTE | 2023-10-29 15:45 | XR_ITS ---
FINAL REPORT CLINICAL HISTORY: LEFT WRIST PAIN COMPARISON: 10/16/2023 FINDINGS: LEFT WRIST 3 views were obtained. There is no acute fracture or dislocation. A cyst is seen in the distal pole of the scaphoid. Visualized joint spaces are normally aligned. Soft tissues are unremarkable. IMPRESSION: No acute bony abnormality. Reviewed, Interpreted and Dictated by James Villafana III, MD Transcribed by Verónica Delgado Authenticated and [facility]
== END 2023-10-29 23:59 | disposition home or self-care (01) ==
LOC: RAD 15:41
PROVIDERS: PCP Family Medicine; Visit Provider Family Medicine
DX: M25.532 Pain in left wrist (principal)
CPT/HCPCS: 73110

== ENCOUNTER 2023-12-04 08:04 | Outpatient (CLI) | payer MEDICARE, SELFPAY ==
--- NOTE | 2023-12-04 08:08 | MR_ITS ---
FINAL REPORT CLINICAL HISTORY: pt states she had a fall 2 months ago and has pain in the 1st mcp joint. FINDINGS: Multiplanar MR imaging of the left wrist was performed without contrast. Exam is degraded by patient motion. There is no significant ulnar positive or ulnar negative variance. The bony structures are intact without evidence of fracture, bone bruise or marrow edema. There is no evidence of intrinsic ligament injury. The triangular fibrocartilage is intact. The flexor and extensor tendons are intact. No soft tissue mass or cyst is identified. No focal abnormality is identified of the median nerve. IMPRESSION: Suboptimal exam due to motion. No focal injury identified. Reviewed, Interpreted and Dictated by Jose Vidal MD Transcribed by Angela Molina Authenticated and [facility]
== END 2023-12-04 23:59 | disposition home or self-care (01) ==
LOC: RAD 08:05
PROVIDERS: PCP Family Medicine; Visit Provider Family Medicine
DX: M25.532 Pain in left wrist (principal); M25.242 Flail joint, left hand
CPT/HCPCS: 73221

== ENCOUNTER 2023-12-08 08:54 | Emergency (ER) | payer MEDICARE, SELFPAY ==
[2023-12-08 09:14] VITALS: BP 138/59; PULSE 74; RESP 18; TEMP 36.7; O2SAT 99; BMI 33.6
[2023-12-08 09:24] LABS: UTC Strep Screen (Rapid) Negative (Negative)
--- NOTE | 2023-12-08 09:28 | ED_ITS ---
Discharge Plan Disposition Patient Disposition: Home, Self-Care Condition: Good Prescriptions Prescriptions: New azithromycin 250 mg tablet 250 mg PO DIRECTED Qty: 6 0RF Rx Instructions: Take two (2) tablets on day #1, then one (1) tablet day #2 thru #5 No Action metoprolol succinate 50 mg tablet extended release 24 hr 50 mg PO DAILY amlodipine 5 mg tablet 5 mg PO DAILY irbesartan-hydrochlorothiazide 300-12.5 mg tablet 300 tab PO DAILY mirabegron [Myrbetriq] 50 mg tablet extended release 24 hr 50 mg PO DAILY Referrals Follow up/Referrals: Bhargav Farias MD [Primary Care Provider] - See instructions Activity Restrictions/Add. Instructions Additional Instructions/Restrictions: Start antibiotics today be sure to take it as ordered with the full length of time although you should start feeling better in 24-48 hours. Change toothbrush and toothpaste 24-48 hours after starting antibiotics Tylenol or Motrin as needed for fever or pain Encourage fluids, water, Gatorade, Powerade, try cold fluids, popsicles, ice cream will make it feel better You are contagious for 24 hours. Avoid kissing anyone, no eating or drinking after anyone. You are contagious. Follow-up the ER for new or worsening symptoms or no noticeable improvement over the next 24-48 hours. Follow-up with PCP this week. Clinical Impressions Clinical Impression: Strep pharyngitis Instructions Patient Instructions: DI for Strep Throat Print Language Print Language: Citizen Of [place] Discharge ED Provider: [place] ([facility])[place] [facility] [place] HPI General Stated complaint: sore throat, chest congestion Mode of Arrival: Ambulatory Source of Information: Patient Time Seen by Provider: 12/08/23 09:28 Description of Symptoms (Recalled from Triage Doc. by RN): sore throat with post nasal drainage HEENT Symptoms (Recalled from RN notes): Yes Resp Symptoms (Recalled from RN notes): Yes Skin Symptoms (Recalled from RN notes): No MS Symptoms (Recalled from RN notes): No Functional Status (Recalled from RN notes): WNL History of Present Illness Provider Complaint: 68-year-old female presents for sore throat and nasal congestion. Patient states this feels like her normal strep which she has freq Related Data Home Medications ?Medication ?Instructions ?Recorded ?Confirmed amlodipine 5 mg tablet 5 mg PO DAILY 12/08/23 12/08/23 irbesartan 300 300 tab PO DAILY 12/08/23 12/08/23 mg-hydrochlorothiazide 12.5 mg tablet metoprolol succinate 50 mg 50 mg PO DAILY 12/08/23 12/08/23 tablet,extended release 24 hr mirabegron 50 mg tablet,extended 50 mg PO DAILY 12/08/23 12/08/23 release 24 hr (Myrbetriq) Previous Rx's ?Medication ?Instructions ?Recorded azithromycin 250 mg tablet 250 mg PO DIRECTED #6 tabs 12/08/23 Allergies Allergy/AdvReac Type Severity Reaction Status Date / Time amoxicillin Allergy Rash Verified 10/16/23 18:47 cefdinir Allergy Rash Verified 10/16/23 18:47 clindamycin Allergy Gastrointestinal Verified 10/16/23 18:47 Upset Penicillins Allergy Rash Verified 10/16/23 18:47 sulfamethoxazole Allergy Rash Verified 10/16/23 18:47 [From ] trimethoprim [From ] Allergy Rash Verified 10/16/23 18:47 Worker's Comp Is this a Worker's Comp case?: [facility] Disclaimer: The information contained in this section may have been updated after the patient was seen, as this information can be updated by other users. Social History (Reviewed 12/08/23 @ 09:34 by Landen Osborne ([facility]), [employer]) Smoking Status: Never smoker alcohol intake: never current occupational status: other Travel in the last 8 weeks: None ROS Obtained: Yes Systems reviewed as appropriate & no additional complaints except as documented ENT Ears, Nose, Mouth, and Throat: Reports system reviewed and no additional complaints, except as documented, Reports as per HPI, Reports post nasal drip and Reports sore throat Physical Exam General General appearance: alert and in no apparent distress Eye Eye exam: Present normal appearance ENT ENT exam: Present mucous membranes moist and TM's normal bilaterally Expanded ENT Exam Throat exam: Present other (Pharynx red with exudate) Respiratory Respiratory exam: Present normal lung sounds bilaterally Cardiovascular Cardiovascular exam: Present regular rate and normal rhythm Neurological Exam Neurological exam: Present alert and oriented X3 Skin Skin exam: Present warm and intact Medical Decision Making Medical Records Medical records reviewed: Yes I reviewed the patient's medical records. Screening: Per USPSTF and CDC recommendations, given the prevalence of disease in our region, it is our hospital?s policy to screen for HIV and viral Hepatitis for all patients aged 18 and over and those with ongoing risk factors. Melo Inquiry Pt receiving controlled substance: No Melo was queried for this patient: No Vital Signs: 12/08/23 09:14 Temperature 98.0 F Temperature Source Oral Pulse Rate [Left Brachial] 74 Respiratory Rate 18 Blood Pressure [Left Arm] 138/59 L Blood Pressure Mean [Left Arm] 85 02 Sat by Pulse Oximetry 99 Lab Data Lab results reviewed: Yes I reviewed the patient's lab results. Lab Results 12/08/23 09:17: Strep Scn Rapid Clinic Negative Orders (Tests/Meds): ORDERS Category Date Time Status Strep Screen Confirmation Stat Micro 12/08/23 09:17 Received
[2023-12-08 09:50] VITALS: BP 138/59; PULSE 74; RESP 18; TEMP 36.7
== END 2023-12-08 09:52 | disposition home or self-care (01) ==
PROVIDERS: Emergency Provider Nurse Practitioner Family; PCP Family Medicine
DX: J02.0 Streptococcal pharyngitis (principal)
CPT/HCPCS: 87880; 99213; G0381

== ENCOUNTER 2024-02-07 11:56 | Day surgery (SDC) | payer MEDICARE, SELFPAY ==
[2024-02-06 09:26] VITALS: BMI 31.8
--- NOTE | 2024-02-07 12:10 | EXP.ANES.CKL ---
[facility] Disclaimer: The information contained in this section may have been updated after the patient was seen, as this information can be updated by other users. Medical History Hypertension Surgical History H/O shoulder surgery Hx of tonsillectomy H/O: hysterectomy Family History Father Coronary artery disease Father Kidney disease Other Brain cancer Social History Smoking Status: Never smoker alcohol intake: never substance use type: denies use current occupational status: employed and other Travel in the last 8 weeks: None [facility] Anesthesia Checklist Patient Identification Patient Identification: Arm Band and Verbal (Name & ) Structural Data Admitted From: Home Planned Operative Procedure/s: Colonoscopy Consent for Planned Operative Procedure(s) Verified: Yes Verified Documents: Surgical Consent and History and Physical NPO Status Verified Time NPO: 00:00 Additional verifications Anesthesia Reactions: No Airway Assessment Mallampati Score:: Class I C-Spine Mobility Assessed: Yes TMJ Mobility Assessed: Yes Dentition: Good Dentition Neurological Assessment Level of Consciousness: Awake Hx Seizures: No Numbness or tingling in extremities: No Anesthesia Plan Anesthesia Risk discussed: Yes Anesthesia Plan: Verified ASA Class: II Anesthesia Type: MAC
[2024-02-07 12:15] VITALS: BP 156/67; PULSE 77; RESP 16; TEMP 36.1; O2SAT 97
[2024-02-07] MEDS: LACTATED RINGERS 1000ML 1,000 ML 25 ML IV (12:20)
[2024-02-07 13:31] VITALS: O2SAT 97
--- NOTE | 2024-02-07 13:35 | P.PCN_ITS ---
[facility] Procedure Note Date: 02/07/24 Time: 13:51 Procedure Note:: Colonoscopy Procedure Report: Colonoscopy with cold snare polypectomy Endoscopist: Mickey Blackmon II, MD Referring physician: Bhargav Farias MD Date of Procedure: February 07, 2024 Equipment: Olympus 190 variable stiffness pediatric colonoscope Sedation: MAC sedation Indication: Mrs. Pastor is a 68-year-old female who is here for follow-up surveillance colonoscopy. Her last colonoscopy 10 years ago with ri was normal. 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 She reports no abdominal pain, weight loss, change in her bowel habits or family history of colon cancer. She does have some mild chronic constipation. Procedure: Prior to the procedure, a history and physical exam was performed, and patient's medications and allergies were reviewed. The risks, benefits and alternatives of the sedation and procedure were discussed with the patient. All questions were answered and informed consent was obtained. The patient was brought to the procedure room. Patient identification and proposed procedure were verified by the physician and the nurse. The patient was placed in a left lateral decubitus position and the scope was passed under direct vision. Throughout the procedure, the patient's blood pressure, pulse, and oxygen saturations were monitored continuously. The colonoscopy was accomplished without difficulty. The patient tolerated the procedure well. Findings: On digital rectal examination there was normal rectal tone. There were no external hemorrhoids. There was a healed chronic posterior midline anal fissure. The colonoscope was introduced through the anal canal to the rectum and advanced to the cecum. The ileocecal valve and appendiceal orifice were identified. The scope was advanced a short distance into the ileum which appeared grossly normal. The scope was then withdrawn into the colon. There were 4 colon polyps (ascending x 1 (10 to 11 mm with mucus?probable serrated adenoma), descending x 2 (4 and 4 mm) and sigmoid x 1 (3 mm)). These were all removed via cold snare polypectomy. The remaining cecum, ascending and transverse colon and mucosa were grossly normal. There were scattered diverticuli throughout the descending and sigmoid colon (LEFT colon). The rectum itself was normal. Upon retroflexion within the rectum there were grade 2 internal hemorrhoids. The preparation was excellent throughout with Mclaughlin Preparation Score of 9. The cecal time was 14 minutes. Impression: 1. Colonic polyps x 4 2. Left-sided diverticulosis 3. Chronic posterior midline anal fissure 4. Grade 2 internal hemorrhoids Plan: I will follow-up the polyp histology and recommend repeat surveillance colonoscopy again in 5 years. I would recommend initiation of a fiber bowel regimen on a long-term daily maintenance basis.
[2024-02-07 13:54] VITALS: BP 86/55; PULSE 83; RESP 16; TEMP 36.4; O2SAT 95
[2024-02-07 14:04] VITALS: BP 100/55; PULSE 85; RESP 16; TEMP 36.4; O2SAT 95
[2024-02-07 14:14] VITALS: BP 134/80; PULSE 83; RESP 18; TEMP 36.4; O2SAT 98
[2024-02-07 14:24] VITALS: BP 130/62; PULSE 81; RESP 18; TEMP 36.4; O2SAT 98
== END 2024-02-07 14:50 | disposition home or self-care (01) ==
PROVIDERS: PCP Family Medicine; Visit Provider Internal Medicine Gastroenterology
PROC: (CPT 45385; principal; 2024-02-07 13:30)
DX: K63.5 Polyp of colon (principal); K59.09 Other constipation; K60.1 Chronic anal fissure; K57.30 Diverticulosis of large intestine without perforation or abscess without bleeding; K64.1 Second degree hemorrhoids
CPT/HCPCS: 45385; 88305; J7120

== ENCOUNTER 2024-08-30 15:58 | Outpatient (CLI) | payer MEDICARE, SELFPAY ==
--- OUTSIDE RECORDS SUMMARY | 2024-06-16 09:30 | XMS_ITS ---
Author Organization [facility] Address [address] [place] [id number] Care Team Providers Care Machine Load Clerk Name Role Phone Bhargav Farias Primary Care Provider [phone] Allergies Allergen (clinical drug ingredient) Drug/Non Drug Allergy documented on EMR Reaction Allergy Type Onset Date Status amoxicillin Amoxicillin hives Drug Allergy Act odette cefdinir Cefdinir hives Drug Allergy Active Lisinopril cough Drug Allergy Active clindamycin Clindamycin upset stomach Drug Allergy Active Results Component Value Reference Range Notes CBC Fingerstick (in house) Reviewed date:06/16/2024 04:29:14 PM Interpretation: Performing Lab: Notes/Report: wbc 8.5 3.5 - 10 lym 24.8% 15 - 50 mid 6.1% 2 - 15 gran 69.1% 35 - 80 rbc 5.18 3.5 - 5.5 hgb 14.9 11.5 - 16.5 hct 45.1 35 - 55 mcv 87.1 75 - 100 mch 28.7 25 - 35 mchc 32.9 31 - 38 plat 179 100 - 400 REASON FOR VISIT cough Medications Medication SIG (Take, Route, Frequency, Duration) Notes Start Date End Date Status Irbesartan-hydroCHLOROthiazi de 300-12.5 MG TAKE 1 TABLET BY MOUTH ONCE DAILY; Duration: 30 Active Voltaren 1 % 2 grams Externally f our times a day as needed 05/19/2024 Active amLODIPine Besylate 5 MG TAKE 1 TABLET B Y MOUTH ONCE DAILY; Duration: 30 Active Myrbetriq 50 MG 1 tablet Orally once daily; Duration: 90 days Active Metoprolol Succinate ER 50 MG TAKE 1 TABLET BY MOUTH ONCE DAILY; Duration: 30 days Active dexAMETHasone 2 MG 1 tablet Orally Two times a day; Duration: 5 days 06/16/2024 Active Probiotic Formula Ac tive Fluconazole 100 MG 1 tablet Orally once daily; Duration: 7 days 05/04/2023 Active Flonase Allergy Relief 50 MCG/ACT 1 spray in each nostril Nasally Once a day 01/24/2023 Active Prevacid 24HR 15 MG 2 cap(s) orally once a day Active Vital Signs Blood pressure systolic 130 mm Hg 06/17/19 25 Blood pressure diastolic 72 mm Hg 025 Heart Rate 74 /min 06/16/2024 Height 63 in 06/16/2024 Weight 188.8 lbs 06/16/2024 BMI 33.44 kg/m2 06/16/2024 Encounters Encounter Location Date Provider Diagnosis [facility] [address] [facility] [address] [facility] [address] [place] [id number] 06/16/2024 Bhargav Farias Acute cough R 05.1 Assessments Encounter Date Diagnosis (ICD Code) Assessment Notes Treatment Notes Treatment Clinical Notes Section Notes 06/16/2024 Acute cough (ICD-10 - R05.1) Plan Of Treatment Medication Medication Name Sig Start Date Stop Date Notes dexAMETHasone 2 MG 1 tablet Orally Two times a day; Duration: 5 days 06/16/2024 Next Appt Details Follow Up: prn, Reason: Provider Name:Bhargav Lao ry, 09/09/2024 09:30:00 AM, [address] [facility] [address] [facility], [address], [place] [id number], Progress Notes * ZAINAB ALSTONOB:1955 ( 68 yo F)Acc No.[id number]:06/16/2024 Progress Notes Patient: MIREYA TAPIA Provider: Kristen Farias M.D. :1955 A ge:68 Y S ex:Female Date:06/16/2024 Address:[address] [place], [place] [id number] Subjective: * Chief Complaints: * 1 . Cough. * HPI: E NT/respiratory: 68 year old female presents with c/o cough P t complains of dry without any sputum production cough a couple weeks. Associated with chest congestion and sinus drainage. * ROS: D ERMATOLOGY: no R bryon. n o H adilia. G ASTROENTEROLOGY: no N ausea. n o V omiting. U ROLOGY: no D ifficulty urinating. n o B lood in urine. * Medical History: H ypertension, Seasonal Allergies, Esophageal Reflux, Plantar Fascitis, Lumbar Disc Disease, Lumbar Facet Arthropathy, Osteoarthritis, Hips and Knees, Fatty Liver. * Surgical History: L T Breast Cyst Removal , D&C- [facility] 10/28/2010, Hysterectomy & Bladder Stapled 05/08/2011, RT Shoulder 10/30/2012, RT Bicep Repair 09/11/2018. * Hospitalization/Major Diagno stic Procedure: V lupe- [facility] ER 09/22/2018. * Family History: F ather: alive. M other: . 2 sister(s) . 1 son(s) , 1 daughter(s) . . * Social History: C URRENT TOBACCO USE S moking Status: Patient does NOT smoke. C affeine: yes, frequency:daily. Home smoke detector use: yes. Marital Status: . Past smoking status: no, Smoking status: Does not smoke. Alcohol: no. * Medications: T aking Probiotic Formula , Taking Flonase Allergy Relief 50 MCG/ACT Suspension 1 spray in each nostril Nasally Once a day , Taking Fluconazole 100 MG Tablet 1 tablet Orally once daily , Taking Prevacid 24HR 15 MG Capsule Delayed Release 2 cap(s) orally once a day , Taking Voltaren 1 % Gel 2 grams Externally four times a day as needed , Taking Myrbetriq 50 MG Tablet Extended Release 24 Hour 1 tablet Orally once daily , Taking amLODIPine Besylate 5 MG Tablet TAKE 1 TABLET BY MOUTH ONCE DAILY , Taking Metoprolol Succinate ER 50 MG Tablet Extended Release 24 Hour TAKE 1 TABLET BY MOUTH ONCE DAILY , Taking Irbesartan-hydroCHLOROthiazide 300-12.5 MG Tablet TAKE 1 TABLET BY MOUTH ONCE DAILY , Medication List reviewed and reconciled with the patient * Allergies: L isinopril: cough - Side Effects, Cefdinir: hives - Allergy, Clindamycin: upset stomach, Amoxicillin: hives. Objective: * Vitals: W t:188.8, Temp:98.1, BP:130/72, HR:74, O2 Sat:91% on RA, Nurse:cyril, Ht: 63, BMI:33.44. * Examination: E NT/Respiratory: General Appearance: N AD. E ars: a uditory canals normal bilaterally, TM's WNL. N ose : n annie patent , clear rhinorrhea. O ral cavity :?no erythema or exudate seen on pharynx. H eart : R RR. L ungs: c lear to auscultation bilaterally. Assessment: * Assessment: 1. A cute cough - R05.1 (Primary) Plan: * Treatment: Value Reference Range w bc 8.5 3.5 - 10 * l ym 24.8% 15 - 50 * m id 6.1% 2 - 15 * g ran 69.1% 35 - 80 * r bc 5.18 3.5 - 5.5 * h gb 14.9 11.5 - 16.5 * h ct 45.1 35 - 55 * m cv 87.1 75 - 100 * m ch 28.7 25 - 35 * m chc 32.9 31 - 38 * p lat 179 100 - 400 * Tanna Figueroa 06/16/2024 1:43:15 PM > , Provider reviewed results while patient in office. * Procedure Codes: G 2211 Complex e/[place] [address] CAPILLARY BLOOD DRAW, 56141 CBC WITH AUTO DIFF, 3075F SYST BP GE 130 - 139MM HG, 3078F DIAST BP < 80 MM HG * Follow Up: p rn * Images: Billing Information: * Visit Code: 75502 Office Visit, Est Pt., Level 3. * Procedure Codes: G2211 Complex e/[place]. [address] CAPILLARY BLOOD DRAW. 88159 CBC WITH AUTO DIFF. 3075F SYST BP GE 130 - 139MM HG. 3078F DIAST BP < 80 MM HG. * Electronic signature of Aggie Farias MD on 09/01/2024 at 11:20 AM EDT Sign off status: Pending * Provider: Kristen Farias M.D. Date: 0 06/16/2024 Generated for Liv miller/Ismael/eTransmitting on: 0 09/01/2024 11:20 AM EDT History and Physical Notes * HPI (History of Present Illness) Category Sub-Category Detail Notes Category Not es ENT/respiratory cough Pt complains of dry without any sputum production cough a couple weeks. Associated with chest congestion and sinus drainage Examination Category Sub-Category Detail Notes Category Not es ENT/Respiratory Oral cavity : no erythema or exudate s een on pharynx Ears: auditory canals norm al bilaterally, TM's WNL Heart : RRR Lungs: clear to auscultatio n bilaterally General Appearance: NAD Nose : nares patent , clear rhinorrhea
--- OUTSIDE RECORDS SUMMARY | 2024-06-27 11:15 | XMS_ITS ---
Author Organization [facility] Address [address] [place] [id number] Care Team Providers Care Trimmer Machine Name Role Phone Bhargav Farias Primary Care Provider Allergies Allergen (clinical drug ingredient) Drug/Non Drug Allergy documented on EMR Reaction Allergy Type Onset Date Status amoxicillin Amoxicillin hives Drug Allergy Act odette cefdinir Cefdinir hives Drug Allergy Active Lisinopril cough Drug Allergy Active clindamycin Clindamycin upset stomach Drug Allergy Active Results Component Value Reference Range Notes CBC Fingerstick (in house) Reviewed date:06/28/2024 10:11:16 AM Interpretation: Performing Lab: Notes/Report: wbc 9.6 3.5 - 10 lym 20.9% 15 - 50 mid 5.6% 2 - 15 gran 73.5% 35 - 80 rbc 4.91 3.5 - 5.5 hgb 14.4 11.5 - 16.5 hct 42.4 35 - 55 mcv 86.3 75 - 100 mch 29.3 25 - 35 mchc 33.9 31 - 38 plat 203 100 - 400 REASON FOR VISIT cough, congestion, sore throat Medications Medication SIG (Take, Route, Frequency, Duration) Notes Start Date End Date Status Flonase Allergy Relief 50 MCG/ACT 1 spray in each nostril Nasally Once a day 01/24/2023 Active Fluconazole 100 MG 1 tablet Orally once daily; Duration: 7 days 05/04/2023 Active Zithromax Z-Robel 250 MG as directed Orall y once daily; Duration: 5 days 06/27/2024 Active Probiotic Formula Ac tive Prevacid 24HR 15 MG 2 cap(s) orally once a day Active Irbesartan-hydroCHLOROthiaz brittany 300-12.5 MG TAKE 1 TABLET BY MOUTH ONCE DAILY; Duration: 30 Active amLODIPine Besylate 5 MG TAKE 1 TABLET B Y MOUTH ONCE DAILY; Duration: 30 Active Metoprolol Succinate ER 50 MG TAKE 1 TABLET BY MOUTH ONCE DAILY; Duration: 30 days Active Myrbetriq 50 MG 1 tablet Orally once daily; Duration: 90 days Active Voltaren 1 % 2 grams Externally f our times a day as needed 05/19/2024 Active Problems Problem Type SNOMED Code ICD Code Onset Dates Problem Status W/U Status Risk Notes Problem Obese class I ([id number]) BMI 33.0-33.9,a dult (Z68.33) Active confirmed Vital Signs Blood pressure systolic 132 mm Hg 06/28/19 25 Blood pressure diastolic 72 mm Hg 025 Heart Rate 77 /min 06/27/2024 Height 63 in 06/27/2024 Weight 191 lbs 06/27/2024 BMI 33.83 kg/m2 06/27/2024 Encounters Encounter Location Date Provider Diagnosis [facility] [address] [facility] [address] [place], [place] [id number] 06/27/2024 Bhargav Farias Acute URI J06.9 ; St age 3a chronic kidney disease (CKD) N18.31 ; Essential hypertension I10 ; BMI 33.0-33.9,adult Z68.33 and Non morbid obesity E66.9 Assessments Encounter Date Diagnosis (ICD Code) Assessment Notes Treatment Notes Treatment Clinical Notes Section Notes 06/27/2024 Acute URI (ICD-10 - J06.9) 06/27/2024 Stage 3a chronic kidney disease (CKD) (ICD-10 - N18.31) 06/27/2024 Essential hypertension (ICD-10 - I10) 06/27/2024 BMI 33.0-33.9,adult (ICD-10 - Z68.33) 06/27/2024 Non morbid obesity (ICD-10 - E66.9) Plan Of Treatment Medication Medication Name Sig Start Date Stop Date Notes Zithromax Z-Robel 250 MG as directed Orall y once daily; Duration: 5 days 06/27/2024 Next Appt Details Follow Up: prn, Reason: Provider Name:Bhargav Lao ry, 09/09/2024 09:30:00 AM, [address], [address], [place], [id number], Progress Notes * ZAINAB ALSTONOB:1955 ( 68 yo F)Acc No.[id number]:06/27/2024 Progress Notes Patient: MIREYA TAPIA Provider: Kristen Farias M.D. :1955 A ge:68 Y S ex:Female Date:06/27/2024 Address:[address] [place], [place] [address], [id number] Subjective: * Chief Complaints: * 1 . Cough, congestion, sore throat. * HPI: E NT/respiratory: 68 year old female presents with c/o cough P t complains of dry without any sputum production cough that started yesterday. Associated with chest congestion and headache . Denies : Fever. D enies : body aches. * ROS: D ERMATOLOGY: no R bryon. [...] T Breast Cyst Removal , [facility]C- [facility] 10/28/2010, Hysterectomy & Bladder Stapled 05/08/2011, RT Shoulder 10/30/2012, RT Bicep Repair 09/11/2018. * Hospitalization/Major Diagno stic Procedure: V ertigo- [facility] ER 09/22/2018. * Family History: F [...] 1 TABLET BY MOUTH ONCE DAILY , Discontinued dexAMETHasone 2 MG Tablet 1 tablet Orally Two times a day , Medication List reviewed and reconciled with the patient * Allergies: L isinopril: cough - Side Effects, Cefdinir: hives - Allergy, Clindamycin: upset stomach, Amoxicillin: hives. Objective: * Vitals: W t: 191, Temp: 97.7, BP: 132/72, HR: 77, O2 Sat: 97% on RA, Nurse: RADHA, Ht: 63, BMI:33.83. * Examination: E NT/Respiratory: General Appearance: N AD. E yes: P ERRLA, sclera clear. O ral cavity : e rythema without exudate on pharynx. N yong : n o cervical lymphadenopathy. H eart : R RR, normal S1 S2. L ungs: c lear to auscultation bilaterally.? Assessment: * Assessment: 1. A cute URI - J06.9 (Primary) 2 . S tage 3a chronic kidney disease (CKD) - N18.31 3 . E ssential hypertension - I10 4 . B SD 33.0-33.9,adult - Z68.33 5 . N on morbid obesity - E66.9 Plan: * Treatment: Value Reference Range w bc 9.6 3.5 - 10 * l ym 20.9% 15 - 50 * m id 5.6% 2 - 15 * g ran 73.5% 35 - 80 * r bc 4.91 3.5 - 5.5 * h gb 14.4 11.5 - 16.5 * h ct 42.4 35 - 55 * m cv 86.3 75 - 100 * m ch 29.3 25 - 35 * m chc 33.9 31 - 38 * p lat 203 100 - 400 * Tanna Figueroa 06/27/2024 03:30:3 2 PM > Provider reviewed results while patient in office.Bhargav Farias 06/28/2024 10:11:10 AM > * Procedure Codes: G 2211 Complex e/[place], [address] CAPILLARY BLOOD DRAW, 78869 CBC WITH AUTO DIFF, 3075F SYST BP GE 130 - 139MM HG, 3078F DIAST BP < 80 MM HG * Follow Up: p rn * Images: Billing Information: * Visit Code: 83766 Office Visit, Est Pt., Level 3. * Procedure Codes: G2211 Complex e/[place]. [address] CAPILLARY BLOOD DRAW. 70293 CBC WITH AUTO DIFF. 3075F SYST BP GE 130 - 139MM HG. 3078F DIAST BP < 80 MM HG. * Electronic signature of Aggie Farias MD on 09/01/2024 at 11:19 AM EDT Sign off status: Pending * Provider: Kristen Farias M.D. Date: 0 06/27/2024 Generated for Liv miller/Ismael/eTstewartsmitting on: 0 09/01/2024 11:19 AM EDT History and Physical Notes * HPI (History of Present Illness) Category Sub-Category Detail Notes Category Not es ENT/respiratory cough Pt complains of dry without any sputum production cough that started yesterday. Associated with chest congestion and headache Fever body aches Examination Category Sub-Category Detail Notes Category Not es ENT/Respiratory Oral cavity : erythema without exudate on pharynx Neck : no cervical lymphade nopathy Heart : RRR, normal S1 S2 Lungs: clear to auscultatio n bilaterally General Appearance: NAD Eyes: PERRLA, sclera clear
--- OUTSIDE RECORDS SUMMARY | 2024-07-04 06:15 | XMS_ITS ---
[facility] Address [address] [place] [id number] Care Team Providers Care Classified Advertising Supervisor Name Role Phone Bhargav Farias Primary Care Provider [phone] Allergies Allergen (clinical drug ingredient) Drug/Non Drug Allergy documented on EMR Reaction Allergy Type Onset Date Status amoxicillin Amoxicillin hives Drug Allergy Act odette cefdinir Cefdinir hives Drug Allergy Active Lisinopril cough Drug Allergy Active clindamycin Clindamycin upset stomach Drug Allergy Active Results Component Value Reference Range Notes CBC Fingerstick (in house) Reviewed date:07/04/2024 12:41:49 PM Interpretation: Performing Lab: Notes/Report: wbc 8.1 3.5 - 10 lym 23.9 15 - 50 mid 5.6 2 - 15 gran 70.5 35 - 80 rbc 5.03 3.5 - 5.5 hgb 14.5 11.5 - 16.5 hct 43.0 35 - 55 mcv 85.4 75 - 100 mch 28.8 25 - 35 mchc 33.8 31 - 38 plat 144 100 - 400 REASON FOR VISIT upper respiratory still not better Medications Medication SIG (Take, Route, Frequency, Duration) Notes Start Date End Date Status Benzonatate 200 MG 1 capsule as needed Orally Three times a day 07/04/2024 Active amLODIPine Besylate 5 MG TAKE 1 TABLET B Y MOUTH ONCE DAILY; Duration: 30 Active Metoprolol Succinate ER 50 MG TAKE 1 TABLET BY MOUTH ONCE DAILY; Duration: 30 days Active Irbesartan-hydroCHLOROthiaz brittany 300-12.5 MG TAKE 1 TABLET BY MOUTH ONCE DAILY; Duration: 30 Active Myrbetriq 50 MG 1 tablet Orally once daily; Duration: 90 days Active Flonase Allergy Relief 50 MCG/ACT 1 spray in each nostril Nasally Once a day 01/24/2023 Active Fluconazole 100 MG 1 tablet Orally once daily; Duration: 7 days 05/04/2023 Active Prevacid 24HR 15 MG 2 cap(s) orally once a day Active Voltaren 1 % 2 grams Externally f our times a day as needed 05/19/2024 Active Probiotic Formula Ac tive Vital Signs Blood pressure systolic 140 mm Hg 07/05/19 25 Blood pressure diastolic 90 mm Hg 025 Heart Rate 72 /min 07/04/2024 Height 63 in 07/04/2024 Weight 187.8 lbs 07/04/2024 BMI 33.26 kg/m2 07/04/2024 Encounters Encounter Location Date Provider Diagnosis [facility] [facility] [address] [place] [phone] 07/04/2024 Bhargav Farias Acute URI J06.9 Assessments Encounter Date Diagnosis (ICD Code) Assessment Notes Treatment Notes Treatment Clinical Notes Section Notes 07/04/2024 Acute URI (ICD-10 - J06.9) Plan Of Treatment Medication Medication Name Sig Start Date Stop Date Notes Benzonatate 200 MG 1 capsule as needed Orally Three times a day 07/04/2024 Next Appt Details Follow Up: prn, Reason: Provider Name:Bhargav Lao ry, 09/09/2024 09:30:00 AM, [address] [facility] 36 [facility], [address], [place] [phone], Progress Notes * ZAINAB ALSTONOB:1955 ( 68 yo F)Acc No.[id number]:07/04/2024 Progress Notes Patient: MIREYA TAPIA Provider: Kristen Farias M.D. :1955 A ge:68 Y S ex:Female Date:07/04/2024 Address:[address] [place], [place] [id number] Subjective: * Chief Complaints: * 1 . Upper respiratory still not better. * HPI: E NT/respiratory: 68 year old female presents with c/o sore throat. c/o cough d ry without any sputum production. Pt states she has finished the Z robel and is doing a little better. Pt still having a lot od dry cough and is worse in the evenings. Denies : Fever. * ROS: D ERMATOLOGY: no R bryon. n o H adilia. G ASTROENTEROLOGY: no N ausea. n o V omiting. n o D iarrhea.? U ROLOGY: no D ifficulty urinating. n o B lood in urine. * Medical History: H ypertension, Seasonal Allergies, Esophageal Reflux, Plantar Fascitis, Lumbar Disc Disease, Lumbar Facet Arthropathy, Osteoarthritis, Hips and Knees, Fatty Liver. * Surgical History: L T Breast Cyst Removal , [facility]C- [facility] 10/28/2010, Hysterectomy & Bladder Stapled 05/08/2011, RT Shoulder 10/30/2012, RT Bicep Repair 09/11/2018. * Hospitalization/Major Diagno stic Procedure: Vanita andrade- [facility] ER 09/22/2018. * Family History: F [...] TABLET BY MOUTH ONCE DAILY , Discontinued Zithromax Z-Robel 250 MG Tablet as directed Orally once daily , Medication List reviewed and reconciled with the patient * Allergies: L isinopril: cough - Side Effects, Cefdinir: hives - Allergy, Clindamycin: upset stomach, Amoxicillin: hives. Objective: * Vitals: W t: 187.8, Temp: 98.0, BP: 140/90, HR: 72, O2 Sat: 99% on RA, Nurse: RIO, Ht: 63, BMI:33.26. * Examination: E NT/Respiratory: General Appearance: N AD. E yes: P ERRLA, sclera clear. O ral cavity : n o erythema or exudate seen on pharynx. N yong : n o cervical lymphadenopathy. H eart : R RR, normal S1 S2. L ungs: c lear to auscultation bilaterally. Assessment: * Assessment: 1. Halley judith URI - J06.9 (Primary) Plan: * Treatment: Value Reference Range w bc 8.1 3.5 - 10 * l ym 23.9 15 - 50 * m id 5.6 2 - 15 * g ran 70.5 35 - 80 * r bc 5.03 3.5 - 5.5 * h gb 14.5 11.5 - 16.5 * h ct 43.0 35 - 55 * m cv 85.4 75 - 100 * m ch 28.8 25 - 35 * m chc 33.8 31 - 38 * p lat 144 100 - 400 * Niki Castro 07/04/2024 11:2 4:19 AM > Provider reviewed results while patient in office. * Procedure Codes: G 2211 Complex e/[place], [address] CAPILLARY BLOOD DRAW, 87691 CBC WITH AUTO DIFF * Follow Up: p rn * Images: Billing Information: * Visit Code: 03624 Office Visit, Est Pt., Level 3. * Procedure Codes: G2211 Complex e/[place]. [address] CAPILLARY BLOOD DRAW. 37389 CBC WITH AUTO DIFF. * Electronic signature of Aggie Farias MD on 09/01/2024 at 11:21 AM EDT Sign off status: Pending * Provider: Kristen Farias M.D. Date: 0 07/04/2024 Generated for Liv miller/Ismael/Raeitting on: 0 09/01/2024 11:21 AM EDT History and Physical Notes * HPI (History of Present Illness) Category Sub-Category Detail Notes Category Not es ENT/respiratory sore throat cough dry without any sput um production. Pt states she has finished the Z robel and is doing a little better. Pt still having a lot od dry cough and is worse in the evenings Fever Examination Category Sub-Category Detail Notes Category Not es ENT/Respiratory Oral cavity : no erythema or exudate s een on pharynx Neck : no cervical lymphade nopathy Heart : RRR, normal S1 S2 Lungs: clear to auscultatio n bilaterally General Appearance: NAD Eyes: PERRLA, sclera clear
--- OUTSIDE RECORDS SUMMARY | 2024-09-01 11:20 | XMS_ITS | Encounter Summary ---
Author Organization [facility] Address [address] [place] [address] Care Team Providers Care Party Host Name Role Phone Bhargav Farias MD Primary Care Provider [phone] Encounter Details Date Type Department Care Team (Late Contact Info) Description 04/30/2020 Orders Only External Location [address] [place] [address] Provider, External Social History Tobacco Use Types Packs/Day Years Used Date Smoking Tobacco: Never Assessed Comments Unknown Sex and Gender Information Value Date Recorded Sex Assigned at Not on file Legal Sex Female 6:33 PM EDT Gender Identity Not on file Sexual Orientation Not on file documented as of this encounter Plan of Treatment Upcoming Encounters Date Type Department Care Team (Late st Contact Info) Description 09/04/2024 8:30 AM EDT Office Visit [facility] [address] [facility], [address] [place] [address] Franky Platt MD [address] [facility] [address] [place] [address] documented as of this encounter Procedures Procedure Name Priority Date/Time Associated Diagnosis Comments XR OUTSIDE IMAGES 04/30/2020 2:21 PM EST documented in this encounter Results * XR OUTSIDE IMAGES (04/30/2020 2:21 PM EST) Anatomical Region Laterality Modality Radiographic Talisha ging 04/30/2020 2:21 PM EST us External Provider IMG XR PROCEDURES Final Result documented in this encounter Visit Diagnoses Not on filedocumented in this encounter Care Teams Party Host Relationship Specialty Start Date End Date Bhargav Farias MD [address] [place] [address] PCP - General 11/02/20 documented as of this encounter
--- OUTSIDE RECORDS SUMMARY | 2024-09-01 11:20 | XMS_ITS ---
Author Organization Unknown Patient Care team information Name Category Status Period Participants - - Proposed period not known -
--- OUTSIDE RECORDS SUMMARY | 2024-09-01 11:20 | XMS_ITS | Encounter Summary ---
Author Organization [facility] Address [address] [place] [address] Care Team Providers Care Circus Agent Name Role Phone Bhargav Farias MD Primary Care Provider + [phone] Encounter Details Date Type Department Care Team (Late Contact Info) Description 07/07/2019 Orders Only External Location [address] [place] [address] Provider, External Social History Tobacco Use Types Packs/Day Years Used Date Smoking Tobacco: Never Assessed Comments Unknown Sex and Gender Information Value Date Recorded Sex Assigned at Not on file Legal Sex Female 6:33 PM EDT Gender Identity Not on file Sexual Orientation Not on file documented as of this encounter Plan of Treatment Upcoming Encounters Date Type Department Care Team (Late Contact Info) Description 09/04/2024 8:30 AM EDT Office Visit [facility]opa[facility] Surgery & Sports Medicine [address] [facility], [address] [place] [address] Franky Platt MD [address] [facility] [address] [place] [address] documented as of this encounter Procedures Procedure Name Priority Date/Time Associated Diagnosis Comments XR OUTSIDE IMAGES 07/07/2019 3:51 PM EDT documented in this encounter Results * XR OUTSIDE IMAGES (07/07/2019 3:51 PM EDT) Anatomical Region Laterality Modality Radiographic Talisha ging 07/07/2019 3:51 PM EDT us External Provider IMG XR PROCEDURES Final Result documented in this encounter Visit Diagnoses Not on filedocumented in this encounter Care Teams Circus Agent Relationship Specialty Start Date End Date Bhargav Farias MD [address] [place] [address] PCP - General 11/02/20 documented as of this encounter
--- OUTSIDE RECORDS SUMMARY | 2024-09-01 11:20 | XMS_ITS | Clinical Summary ---
Author Organization [facility] Address [address] [place] [address] Care Team Providers Care Fly Tier Name Role Phone Bhargav Farias MD Primary Care Provider + [phone] Allergies Active Allergy Reactions Criticality Noted Date Comments Cefdinir Rash,Unknown - Patie nt states they do not know rxn details Low 11/13/2016 Cefuroxime Rash Low 02/07/2018 Clindamycin/Lincomycin Other - please do cument in the comment field Low 02/07/2018 Lisinopril Cough Low 05/22/2024 Penicillins Rash,Unknown - Patie nt states they do not know rxn details Low 02/06/2017 Medications lansoprazole (Prevacid) [address] capsule 1 Active Probiotic Product (acidophilus probiotic blend) capsule Take 1 capsule by mouth 1 (one) time each day. Active Loratadine 10 MG capsule Take by mouth. Acti ve Multiple Vitamins-Minera ls (multivitamin with minerals) tablet Take 1 tablet by mouth 1 (one) time each day. Active mirabegron ER (Myrbetriq) 50 MG tablet Take 1 tablet (50 mg) by mouth 1 (one) time each day. Active amLODIPine (Norvasc) 5 MG tablet 2 Active fluticasone (Flonase) 50 MCG/ACT nasal spray 2 Active triamcinolone (Kenalog) 0.1 % ointment 2 Active irbesartan-hydr oCHLOROthiazide (Avalide) 300-12.5 MG tablet 2 Active metoprolol succinate XL (Toprol-XL) 50 MG 24 hr tablet Take 1 tablet (50 mg) by mouth 1 (one) time each day. 4 Active diclofenac (Voltaren) 1 % topical gel 1-2 g. 5 Active methylPREDNISol one (Medrol Dospak) 4 MG tablets Follow schedule on package instructions 21 tablet 5 Active Hospital, Clinic, or Other Facility Administered Medication Ordered Dose Route Frequency Start Date End Date Status bupivacaine PF (Marcaine) 0.25 % injection 10 mgIndications:Greater trochanteric bursitis of both hips,Tendinopathy of right gluteus medius 10 mg IJ Once 06/12/2021 Active lidocaine (Xylocaine) 1 % injection 4 mLIndications:Greater trochanteric bursitis of both hips,Tendinopathy of right gluteus medius 4 mL IJ Once 06/12/2021 Active triamcinolone acetonide (Kenalog-40) injection 80 mgIndications:Greater trochanteric bursitis of both hips,Tendinopathy of right gluteus medius 80 mg IX Once 06/12/2021 Active Active Problems Problem Noted Date Diagnosed Date Osteoarthritis 09/13/2023 Hypertension 09/13/2023 Knee osteoarthritis 05/13/2020 Cervical radiculopathy due t o degenerative joint disease of spine 07/16/2018 Rotator cuff tendinitis, right 04/07/2018 Family History Medical History Relation Name Comments Conversions - Other Father Mickey Alanis Heart tr ouble Diabetes Father Mickey Alanis Kidney disease Father Mickey Alanis Other cancer Father Mickey Alanis Cancer Mother Leia Alanis Other cancer Mother Leia Alanis Relation Name Status Comments Father Mickey Alanis Mother Leia Alanis Social History Tobacco Use Types Packs/Day Years Used Date Smoking Tobacco: Former Cigarettes Q uit: 1976 Smokeless Tobacco: Never Tobacco Cessation:Counseling Given: Not Answered PHQ-2 Answer Date Recorded Patient Health Questionnaire-2 Score 0 01/31/2024 Comments Unknown Sex and Gender Information Value Date Recorded Sex Assigned at Not on file Legal Sex Female 6:33 PM EDT Gender Identity Not on file Sexual Orientation Not on file Last Filed Vital Signs Vital Sign Reading Time Taken Comments Blood Pressure 138/83 05/22/2024 1:28 PM EDT Pulse 68 09/13/2023 9:35 AM EDT Temperature 35.9 C (96.6 F) 06/09/2021 11:03 AM EDT Respiratory Rate 20 09/13/2023 9:35 AM EDT Oxygen Saturation 99% 09/13/2023 9:35 AM EDT Inhaled Oxygen Concentration - - Weight 81.6 kg (180 lb) 05/22/2024 1:28 PM EDT Height 160 cm (5' 3 ) 05/22/2024 1:28 PM EDT Body Mass Index 31.89 05/22/2024 1:28 PM EDT Plan of Treatment Upcoming Encounters Date Type Department Care Team (Late st Contact Info) Description 09/04/2024 8:30 AM EDT Office Visit [facility] Orthopa[facility] Surgery & Sports Medicine [address], [address] [place] [address] Franky Platt MD [address] [place] [address] Health Maintenance Due Date Last Done Comments [facility]-Bone Density Scan 1955 [facility]-Hepatitis C Screening 1955 [facility]-Medicare Annual Wellness (AWV) 1955 [facility]-Infant/Child/Adol SDOH Screenings 1955 [facility]- SDOH Screenings 09/17/1975 [facility]-Adult SDOH Screenings 09/17/1975 CT Colonography 2002 Colonoscopy 2002 FIT-DNA 2002 FIT 2002 FOBT 2002 Sigmoidoscopy 2002 [facility]-Colorectal Cancer Screening 2002 [facility]-DTaP,Tdap,and Td Vaccines (1 - Tdap) 11/17/2004 11/16/2004, 04/23/1996 [facility]-Breast Cancer Screening 09/17/2007 [facility]-Zoster Vaccines (1 of 2) 09/17/2007 [id number]-17 Vaccine ( - season) 2023 01/05/2021, 05/19/2020, 04/14/2020 [facility]-Influenza Vaccine (#1) 10/20/202401/27, 01/23/2020, 02/14/2019 [facility]-Depression Screening 01/30/2025 01/31/2024 [facility]-RSV Vaccine: 60+ Years or (1 - 1-dose 75+ series) 2032 [facility]-Hepatitis A Vaccines Aged Out 06/21/2005, 04/2004 No longer eligible based on patient's age to complete this topic [facility]-Pneumococcal Vaccine: 50+ Years Completed 11/14/2022 [facility]-Obesity Intervention Completed 025, 01/31/2024, 09/13/2023, Additional history exists HPV Vaccines Aged Out No longer eligi ble based on patient's age to complete this topic [facility]-HIB Vaccines Aged Out No longer e ligible based on patient's age to complete this topic [facility]-IPV Vaccines Aged Out No longer e ligible based on patient's age to complete this topic [facility]-Rotavirus Vaccines Aged Out No lo nger eligible based on patient's age to complete this topic Insurance Care Teams Fly Tier Relationship Specialty Start Date End Date Bhargav Farias MD [address] [facility] [address] [place] [id number] PCP - General 11/02/20
--- OUTSIDE RECORDS SUMMARY | 2024-09-01 11:20 | XMS_ITS | Encounter Summary ---
Author Organization [facility] Address [address] [place] [address] Care Team Providers Care Automobile Lights Assembler Name Role Phone Bhargav Farias MD Primary Care Provider [phone] Encounter Details Date Type Department Care Team (Late Contact Info) Description 04/30/2020 Orders Only External Location [address] [place] [address] Provider, External Social History Tobacco Use Types [...] Description 09/04/2024 8:30 AM EDT Office Visit [facility] Orthopaedic Surgery & Sports Medicine [address] [facility], [address] [place] [address] Franky Platt MD [address] [facility] [address] [place] [address] documented as of this encounter [...] on filedocumented in this encounter Care Teams Automobile Lights Assembler Relationship Specialty Start Date End Date Bhargav Farias MD [address] [place] [address] PCP - General 11/02/20 documented as of this encounter
--- OUTSIDE RECORDS SUMMARY | 2024-09-01 11:22 | XMS_ITS | Encounter Summary ---
Author Organization [facility] Address [address] [place] [address] Care Team Providers Care Booking Agent Name Role Phone Bhargav Farias MD Primary Care Provider [phone] Encounter Details Date Type Department Care Team (Late Contact Info) Description 04/09/2023 Orders Only External Location [address] [place] [address] Bhargav Farias MD [address] [facility] [address] [address] Social History Tobacco Use Types Packs/Day Years Used Date Smoking Tobacco: Former Cigarettes Q uit: 1976 Smokeless Tobacco: Never PHQ-2 Answer Date Recorded Patient Health Questionnaire-2 Score 0 07/20/2021 Comments Unknown Sex and Gender Information Value Date Recorded Sex Assigned at Not on file Legal Sex Female 6:33 PM EDT Gender Identity Not on file Sexual Orientation Not on file documented as of this encounter Plan of Treatment Upcoming Encounters Date Type Department Care Team (Late Contact Info) Description 09/04/2024 8:30 AM EDT Office Visit [facility] Orthopaedic Surgery & Sports Medicine [address] [place] [address] Franky Platt MD [address] [place] [address] documented as of this encounter Procedures Procedure Name Priority Date/Time Associated Diagnosis Comments MR OUTSIDE IMAGES 04/09/2023 12:56 PM EST documented in this encounter Results * MR transfer of outside films (04/09/2023 12:56 PM EST) Anatomical Region Laterality Modality Magnetic Resonan ce 04/09/2023 12:5 6 PM EST Bhargav Farias MD IMG MRI PROCEDURES Final Res ult documented in this encounter Visit Diagnoses Not on filedocumented in this encounter Additional Health Concerns Assessment Noted Time A fall risk assessment has been complete d for the patient 07/20/2021 2:18 PM EDT documented as of this encounter Care Teams Booking Agent Relationship Specialty Start Date End Date Bhargav Farias MD [address] [place] [address] [place] [address] PCP - General 11/02/20 documented as of this encounter
== END 2024-08-30 23:59 | disposition home or self-care (01) ==
LOC: LAB.DROPOF 09-01 11:18
PROVIDERS: PCP Student in an Organized Health Care Education/Training Program; Visit Provider Student in an Organized Health Care Education/Training Program
DX: N39.0 Urinary tract infection, site not specified (principal)
CPT/HCPCS: 87086; 87088; 87186

== ENCOUNTER 2024-09-22 08:48 | Outpatient (CLI) | payer MEDICARE, SELFPAY ==
--- OUTSIDE RECORDS SUMMARY | 2024-07-04 06:15 | XMS_ITS ---
Author Organization [facility] Address [address] [place] [id number] Care Team Providers Care Data Clerk Name Role Phone Bhargav Farias Primary [...] 07/04/2024 Encounters Encounter Location Date Provider Diagnosis [facility] 1210 [facility] 36 [facility] [address] [place] [phone] 07/04/2024 Bhargav Farias Acute URI J06.9 Assessments Encounter Date Diagnosis (ICD Code) Assessment Notes Treatment Notes Treatment Clinical Notes Section Notes 07/04/2024 Acute URI (ICD-10 - J06.9) Plan Of Treatment Medication Medication Name Sig Start Date Stop Date Notes Benzonatate 200 MG 1 capsule as needed Orally Three times a day 07/04/2024 Next Appt Details Follow Up: prn, Reason: Provider Name:Bhargav Lao ry, 09/22/2024 10:45:00 AM, [address] [facility] 36 [facility], [address], [place], [phone], Progress Notes * WILLIE ALSTONSHRUTHIOB:1955 ( 69 yo F)Acc No.[id number]:07/04/2024 Progress Notes Patient: MIREYA TAPIA Provider: Kristen Farias M.D. :1955 A ge:68 Y S ex:Female Date:07/04/2024 Address:[address] [place], [place] [id number] Subjective: * Chief Complaints: * 1 [...] T Breast Cyst Removal , [facility]- [facility] 10/28/2010, Hysterectomy & Bladder Stapled 05/08/2011, RT Shoulder 10/30/2012, RT Bicep Repair 09/11/2018. * Hospitalization/Major Diagno stic Procedure: Vanita andrade- [facility] ER 09/22/2018. * Family History: F ather: [...] G 2211 Complex e/[place], [address] CAPILLARY BLOOD DRAW, 08779 CBC WITH AUTO DIFF * Follow Up: p rn * Images: Billing Information: * Visit Code: 15703 Office Visit, Est Pt., Level 3. * Procedure Codes: G2211 Complex e/[place]. [address] CAPILLARY BLOOD DRAW. 06530 CBC WITH AUTO DIFF. * Electronic signature of Aggie Farias MD on 09/22/2024 at 08:57 AM EDT Sign off status: Pending * Provider: Kristen Farias M.D. Date: 0 07/04/2024 Generated for Liv miller/Ismael/eTransmitting on: 0 09/22/2024 08:57 AM EDT History and Physical Notes * [...]
--- OUTSIDE RECORDS SUMMARY | 2024-09-04 08:30 | XMS_ITS | Encounter Summary ---
Author Organization [facility] Address [address] [place] [address] Care Team Providers Care Leather Stamper Name Role Phone Bhargav Farias MD Primary Care Provider + [phone] Reason for Referral * Other Medical (Routine) - Pending Review Specialty Diagnoses / Procedures Referred By Harman borjas Referred To Contact Diagnoses Chronic pain of right knee Procedures Injection - Large Joint: R knee Franky Platt MD [address] [address] Phone: tel: fax: Referral ID Status Reason Start Date Expiration Date V isits Requested Visits Authorized [id number] Pending Review 09/04/2024 03/06/2026 1 1 Reason for Visit * Reason Comments Follow-up Follow-up Encounter Details Date Type Department Care Team (Late st Contact Info) Description 09/04/2024 8:30 AM EDT Office Visit [facility] Orthopaedic Surgery & Sports Medicine [address], [address] [place] [address] Franky Platt MD [address] [facility] [address] [place] [address] Primary osteoarthritis of one knee, right (Primary Dx); Rotator cuff disorder, right Social History Tobacco Use Types Packs/Day Years [...] on file documented as of this encounter Last Filed Vital Signs Vital Sign Reading Time Taken Comments Blood Pressure 112/68 09/04/2024 8:36 AM EDT Pulse - - Temperature - - Respiratory Rate - - Oxygen Saturation - - Inhaled Oxygen Concentration - - Weight 81.6 kg (180 lb) 09/04/2024 8:36 AM EDT Height 160 cm (5' 3 ) 09/04/2024 8:36 AM EDT Body Mass Index 31.89 09/04/2024 8:36 AM EDT documented in this encounter Miscellaneous Notes * Progress Notes - Yuval Stringer DO - 09/04/2024 8:30 AM EDTAssociated Order(s): Injection - Large Joint: R knee Post-Procedure Diagnose(s): Chronic pain of right knee Sports Medicine Note NAME: Nadeen Pastor : 1955 DATE: 09/04/2024 CHIEF COMPLAINT: Right Knee Pain HPI: Nadeen Pastor is a 68 y.o. female who presents today for evaluation of her right knee, and follow-up right shoulder pain. Patient was last seen in May for her right shoulder and right knee. At that time she received a Medrol Dosepak for her knee which was giving her a lot of pain and swelling. She states that the medicine helped to relieve some of that pain for 2-3 weeks but afterwards she has been very busy and the pain returned. She states this is her biggest complaint today is that she gets swelling on the knee pain in the back and front as well as clicking catching and locking. She denies any new inciting injury and states that these are kind of chronic problems that just have contin ually progressed and worsened. Her right shoulder is currently doing very well. Patient has a history of 2 prior right shoulder arthroscopies in 2013 or debridement and 2019 biceps tenodesis. I have reviewed and updated the patient's past medical history, past surgical history, social history, and family history. This is located both in the patient's note and their intake form that has been scanned into the medical record for today's visit. PAST MEDICAL HISTORY: Patient Active Problem List Diagnosis Rotator cuff tendinitis, right Knee osteoarthritis Osteoarthritis Hypertension Cervical radiculopathy due to degenerative joint disease of spine PAST SURGICAL HISTORY: Recent Surgeries in Sports Medicine, Orthopaedic Surgery No cases to display CURRENT MEDICATIONS: Current Outpatient Medications Medication Sig Dispense Refill amLODIPine (Norvasc) 5 MG tablet fluticasone (Flonase) 50 MCG/ACT nasal spray irbesartan-hydroCHLOROthiazide (Avalide) 300-12.5 MG tablet lansoprazole (Prevacid) [address] capsule Loratadine 10 MG capsule Take by mouth. metoprolol succinate XL (Toprol-XL) 50 MG 24 hr tablet Take 1 tablet (50 mg) by mouth 1 (one) time each day. mirabegron ER (Myrbetriq) 50 MG tablet Take 1 tablet (50 mg) by mouth 1 (one) time each day. Multiple Vitamins-Minerals (multivitamin with minerals) tablet Take 1 tablet by mouth 1 (one) time each day. nitrofurantoin (Macrodantin) 100 MG capsule Take by mouth 4 times a day. diclofenac (Voltaren) 1 % topical gel 1-2 g. (Patient not taking: Reported on 09/04/2024) methylPREDNISolone (Medrol Dospak) 4 MG tablets Follow schedule on package instructions (Patient not taking: Reported on 09/04/2024) 21 tablet 0 Probiotic Product (acidophilus probiotic blend) capsule Take 1 capsule by mouth 1 (one) time each day. (Patient not taking: Reported on 09/04/2024) triamcinolone (Kenalog) 0.1 % ointment (Patient not taking: Reported on 09/04/2024) Current Facility-Administered Medications Medication Dose Route Frequency Provider Last Rate Last Admin bupivacaine PF (Marcaine) 0.25 % injection 10 mg 4 mL Injection Once Madelin Madison, lidocaine (Xylocaine) 1 % injection 4 mL 4 mL Injection Once Madelin Madison, DO triamcinolone acetonide (Kenalog-40) injection 80 mg 80 mg Intra-articular Once Madelin Madison, DO ALLERGIES: Cefdinir, Cefuroxime, Clindamycin/lincomycin, Lisinopril, and Penicillins SOCIAL HISTORY: Social History Socioeconomic History Marital status: Tobacco Use Smoking status: Former Current packs/day: 0.00 Types: Cigarettes Quit date: 1975 Years since quittin.5 Smokeless tobacco: Never Social Drivers of Health Received from [facility] Family and Community Support Received from [facility] Abuse Screen Received from [facility] Housing Stability FAMILY HISTORY: Family History Problem Relation Name Age of Onset Diabetes Father Mickey Alanis Kidney disease Father Mickey Alanis Other cancer Father Mickey Alanis Conversions - Other Father Mickey Alanis Heart trouble Other cancer Mother Leia Alanis Cancer Mother Leia Alanis REVIEW OF SYSTEMS: As per HPI. A 10 point review of systems was performed and was negative. PHYSICAL EXAM: Vital signs: Visit Vitals BP 112/68 Ht 1.6 m (5' 3 ) Wt 81.6 kg (180 lb) BMI 31.89 kg/m?? Smoking Status Former BSA 1.9 m?? Constitutional: Well developed. Well nourished. Psychologic: Mood is appropriate. Appropriate affect. Head and Face: Normocephalic. No obvious deformities. External Ears Normal, no lesions or masses, grossly normal hearing. Eyes: Extraocular movements intact Pulmonary: Unlabored, normal effort. Cardiac: well perfused, extremities pink. Abdomen: Soft, Skin: No rashes on exposed skin surface. Neuro: No focal neuro deficit, normal coordination, normal muscle tone Musculoskeletal: Right Knee Effusion: minimal Range of Motion 0-130 [place] 1A Joint line tenderness: Medial, TTP extends down to pes bursa TTP about popliteal space Negative anterior and posterior drawer test Stable to varus and valgus stress Calf soft, nontender, and easily compressible without clinical sign of DVT. There is no palpable popliteal lymphadenopathy. Warm and well perfused lower extremity with capillary refill less than 2 seconds. Sensation is intact to light touch in terminal nerve distributions. IMAGING: Personally reviewed radiographs of the right knee which show minimal arthritic changes. ASSESSMENT/ PLAN: Nadeen Pastor is a 68 y.o. female here for evaluation of her right knee. Her right shoulder is doing well. We discussed options. She has right knee arthritis and mechanical symptoms of catching/clicking/locking. Given that her symptoms are affecting her daily life including driving, walking, sleeping the patient wished to proceed with injection at this time. I discussed risks and benefits of the injection which include but are not limited to: bleeding, infection, stiffness, and continued pain. Informed consent was obtained. The patient agreed to proceed with the injection. The injection was tolerated well without complication. See procedure note. She would like to follow-up as needed. Patient ID: Nadeen Pastor is a 68 y.o. female. Injection - Large Joint: R knee on 09/04/2024 8:50 AM Indications: pain Details: superolateral approach Medications: 5 mL bupivacaine 0.5 %; 20 mg methylPREDNISolone acetate 40 MG/ML Procedure, treatment alternatives, risks and benefits explained, specific risks discussed. Immediately prior to procedure a time out was called to verify the correct patient, procedure, equipment, contracting support specialist and site/side marked as required. Patient was prepped and draped in the usual sterile fashion. Cosigned by Franky Platt MD at 09/04/2024 4:33 PM EDT Associated attestation - Franky Platt MD - 09/04/2024 4:33 PM EDT I saw and evaluated the patient with the resident/fellow. I discussed the case with the resident/fellow and agree with the findings and plan as documented. I personally performed the right knee intra-articular injection. documented in this encounter Plan of Treatment Not on file documented as of this encounter Procedures Procedure Name Priority Date/Time Associated Diagnosis Comments IA ARTHROCENTESIS ASPIR&/INJ MAJOR JT/BURSA W/O US Routine 09/04/2024 8:50 AM EDT Primary osteoarthritis of one knee, right documented in this encounter Results * IA ARTHROCENTESIS ASPIR&/INJ MAJOR JT/BURSA W/O US (09/04/2024 8:50 AM EDT) Narrative Franky Platt MD - 09/04/2024 8:50 AM EDT Franky Platt MD 09/04/2024 4:33 PM Injection - Large Joint: R knee on 09/04/2024 8:50 AM Indications: pain Details: superolateral approach Medications: 5 mL bupivacaine 0.5 %; 20 mg methylPREDNISolone acetate 40 MG/ML Procedure, treatment alternatives, risks and benefits explained, specific risks discussed. Immediately prior to procedure a time out was called to verify the correct patient, procedure, equipment, contracting support specialist and site/side marked as required. Patient was prepped and draped in the usual sterile fashion. Franky Platt MD IN CLINIC/BEDSIDE ORDERABLES Fin al Result documented in this encounter Visit Diagnoses Diagnosis Primary osteoarthritis of one knee, right- Primary Rotator cuff disorder, right documented in this encounter Administered Medications Inactive Administered Medications - up to 3 most recent administrations Medication Order MAR Action Action Date Dose Rate Site bupivacaine (Marcaine) 0.5 % injection 5 mL 5 mL, Injection, Once PRN Procedure, 1 dose, Starting on Jaleesa 09/04/24 at 0850, Until Jaleesa 09/04/24 at 0850, RoutineIndications:Primary osteoarthritis of one knee, right Given 09/04/2024 8:50 AM EDT 5 mL methylPREDNISolone acetate (DEPO-Medrol) injection 20 mg 20 mg, Intra-articular, Once PRN Procedure, 1 dose, Starting on Jaleesa 09/04/24 at 0850, Until Jaleesa 09/04/24 at 0850, RoutineIndications:Primary osteoarthritis of one knee, right Given 09/04/2024 8:50 AM EDT 20 mg documented in this encounter Additional Health Concerns Assessment Noted Time A fall risk assessment has been complete d for the patient 09/04/2024 8:35 AM EDT A Body Mass Index follow-up plan has been documented for the patient 09/04/2024 4:33 PM EDT documented as of this encounter Care Teams Leather Stamper Relationship Specialty Start Date End Date Bhargav Farias MD [facility] [place] [address] PCP - General 11/02/20 documented as of this encounter
--- OUTSIDE RECORDS SUMMARY | 2024-09-08 12:30 | XMS_ITS ---
Author Organization [facility] Address [address] [place] [id number] Care Team Providers Care Slat Basket Maker Helper Name Role Phone Bhargav Farias Primary Care Provider [phone] Allergies Allergen (clinical drug ingredient) Drug/Non Drug [...] 42 Performing Lab: Notes/Report: Test performed by [facility], [facility] [address] [place] [address] , [address], [place] [address] Ralph Wu MD, Inside Sales Account Representative CLIA: [id number] Sodium 137 135-145 mmol/L Potassium 4.1 3.5-5.3 [...] Interpretation: Performing Lab: Notes/Report: Test performed by [facility], [address] , [address], [place] [address] Ralph Wu MD, Inside Sales Account Representative CLIA: [id number] Specimen Source Urine - Void Culture, Urine [...] Interpretation:Normal Performing Lab: Notes/Report: Test performed by [facility] , [facility], [place] [address] Ralph Wu MD, Inside Sales Account Representative CLIA: [id number] Phosphorus 3.2 2.5-4.5 mg/dL P-Parathyroid Hormone (PTH) Intact Reviewed date:09/10/2024 12:06:32 PM Interpretation:84.6 Performing Lab: Notes/Report: [facility] [address] , [facility], [place] [address] Ralph Wu MD, Inside Sales Account Representative CLIA: [id number] Parathyroid Hormone (PTH) Intact 84.6 15.0-65.0 pg/mL P-Microalbumin/Creatinine, R andom Urine Sample Reviewed date:09/10/2024 12:06:33 PM Interpretation:Normal Performing Lab: Notes/Report: Test performed by [facility] [address] , [facility], [place] [address] Ralph Wu MD, Inside Sales Account Representative CLIA: [id number] Albumin/Creatinine Ratio, Urine 26 0-30 ug/mg Microalbumin, [...] W/U Status Risk Notes Problem Fatty liver (194075589) Fatty liver (K76.0) Active confirmed Vital Signs Blood pressure systolic 142 mm Hg 09/09/19 25 Blood pressure diastolic 76 mm Hg 025 Heart Rate 85 /min 09/08/2024 Height 63 in 09/08/2024 Weight 191.4 lbs 09/08/2024 BMI 33.9 kg/m2 09/08/2024 Encounters Encounter Location Date Provider Diagnosis [facility] [address] [place] [id number] 09/08/2024 Bhargav Farias Acute UTI N39.0 ; [...] rt test results, Reason: Provider Name:Bhargav Lao ry, 09/22/2024 10:45:00 AM, [address], [address], [place] [phone], Progress Notes * ZAINAB ALSTONOB:1955 ( 69 yo F)Acc No.[id number]:09/08/2024 Progress Notes Patient: MIREYA TAPIA Provider: Kristen Farias M.D. :1955 A ge:68 Y S ex:Female Date:09/08/2024 Address:[address] [place] [address] [id number] Subjective: * Chief Complaints: * 1 . [...] T Breast Cyst Removal , D&C- [facility] 10/28/2010, Hysterectomy & Bladder Stapled 05/08/2011, RT Shoulder 10/30/2012, RT Bicep Repair 09/11/2018. * Hospitalization/Major Diagno stic Procedure: V lupe- [facility] ER 09/22/2018. * Family History: F [...] Temp: 97.7, BP: 142/76, HR: 85, Nurse: jayson, Ht: 63, BMI:33.9. * Examination: G eneral [...] maldonado neg * G cindy neg * Earlywine, Rena 09/08/2024 0 4:40:59 PM EDT > Provider [...] 15.0-65. 0 - pg/mL * Fifi Mar Ann 09/11/19 12:06:22 PM EDT > See phone encounter ?LAB: P-Microalbumin/Creatinine, Random Urine Sample (Collection Date & Time - 09/08/2024 03:45 PM)?Normal* Value Reference Range A lbumin/Creatinine Ratio, Urine 26 0-30 - ug /mg * C reatinine, Urine 143.5 - mg/dL * M icroalbumin, Urine, Random 3.7 - mg/dL * Fifi Mar Ann 09/11/19 12:06:22 PM EDT > See phone [...] L >59 - mL/min/1.73m2 * Fifi Mar Ann 09/11/19 12:06:22 PM EDT > See phone encounter * Procedure Codes: G 2211 Complex e/[place], [address] Urinalysis, no micro * Follow Up: v ia phone to report test results * Images: Billing Information: * Visit Code: 79795 Office Visit, Est Pt., Level 4. * Procedure Codes: G2211 Complex e/[place]. [address] Urinalysis, no micro. * Electronic signature of Aggie Farias MD on 09/22/2024 at 08:57 AM EDT Sign off status: Pending * Provider: Kristen Farias M.D. Date: 0 09/08/2024 Generated for Liv miller/Ismael/eTransmitting on: 0 09/22/2024 [...]
--- NOTE | 2024-09-22 08:50 | XR_ITS ---
FINAL REPORT CLINICAL HISTORY: SCREENING COMPARISON: None FINDINGS: Using L1-4, the bone mineral density of the spine is 1.096 g/cm2, corresponding to T-score of 0.4, within normal limits. Using the left hip, the bone mineral density of the total hip is 0.861 g/cm2, corresponding to a T-score of -0.7, within normal limits. Using the right hip, the bone mineral density of the femoral neck is 0.743 g/cm2, corresponding to a T-score of -1.0, within normal limits. FRAX not reported because all T-scores at or above-1.0. NOTE: T-score: Standard deviation compared with peak bone mass of young adult mean. *Following the recommendations of the International Society of Bone densitometry, classification of hip BMD is based on the lower of two T-scores; total hip or femoral neck. IMPRESSION: Normal bone mineral density of the lumbar spine and hips. Reviewed, Interpreted and Dictated by Jose Vidal MD Transcribed by Madelin Paula Authenticated and [facility]
--- OUTSIDE RECORDS SUMMARY | 2024-09-22 08:58 | XMS_ITS | Encounter Summary ---
Author Organization Healthcare Address [address] [place] [address] Care Team Providers Care Galley Hand Name Role Phone Bhargav Farias MD Primary Care Provider [phone] Encounter Details Date Type Department Care Team (Latest Contact Info) Description 09/04/2024 Travel Social History Tobacco Use Types Packs/Day Years [...] as of this encounter Plan of Treatment Not on file documented as of this encounter Visit Diagnoses Not on filedocumented in this encounter Additional Health Concerns Assessment Noted Time A fall risk assessment has been complete d for the patient 09/04/2024 8:35 AM EDT A Body Mass Index follow-up plan has been documented for the patient 09/04/2024 4:33 PM EDT documented as of this encounter Care Teams Galley Hand Relationship Specialty Start Date End Date Bhargav Farias MD [address] [place] [address] PCP - General 11/02/20 documented as of this encounter
--- OUTSIDE RECORDS SUMMARY | 2024-09-22 08:58 | XMS_ITS | Patient Health Record ---
Author Organization [facility] Address [address] [facility] [address] [place] [id number] Care Team Providers Care V Belt Curer Name Role Phone Bhargav Farias Primary Care Provider Allergies Allergen (clinical drug ingredient) Drug/Non Drug Allergy documented on EMR Reaction Allergy Type Onset Date Status amoxicillin Amoxicillin hives Drug Allergy Act odette cefdinir Cefdinir hives Drug Allergy Active lisinopril Lisinopril cough Drug Allergy Activ e clindamycin Clindamycin upset stomach Drug Allergy Active Results Component Value Reference Range Notes MRI : Wrist, Left, without c ontrast Reviewed date:12/05/2023 03:51:26 PM Interpretation:suboptimal exam due to motion, no injury identified Performing Lab: Notes/Report: suboptimal exam due to motion, no injury identified CBC Fingerstick (in house) Reviewed date:07/04/2024 12:41:49 [...] - 38 plat 144 100 - 400 CBC Fingerstick (in house) Reviewed date:06/28/2024 10:11:16 [...] - 38 plat 203 100 - 400 P-Microalbumin/Creatinine, R andom Urine Sample Reviewed date:09/10/2024 12:06:33 PM Interpretation:Normal Performing Lab: Notes/Report: Test performed by [facility] [address] , [address], [place] [address] Ralph Wu MD, Multiple Resaw Operator CLIA: [id number] Albumin/Creatinine Ratio, Urine 26 0-30 ug/mg Microalbumin, Urine, Random 3.7 Creatinine, Urine 143.5 P-Parathyroid Hormone (PTH) Intact Reviewed date:09/10/2024 12:06:32 PM Interpretation:84.6 Performing Lab: Notes/Report: Test performed by [facility] [address] , [place] [address] Ralph Wu MD, Multiple Resaw Operator CLIA: [id number] Parathyroid Hormone (PTH) Intact 84.6 15.0-65.0 pg/mL P-Phosphorus Reviewed date:09/10/2024 12:06:32 PM Interpretation:Normal Performing Lab: Notes/Report: Test performed by [facility] [address] , [address], [place] [address] Ralph Wu MD, Multiple Resaw Operator CLIA: [id number] Phosphorus 3.2 2.5-4.5 mg/dL P-Culture, Urine Reviewed date:09/12/2024 09:22:30 AM Interpretation: Performing Lab: Notes/Report: Test performed by [facility] [address] , [address], [place] [address] Ralph Wu MD, Multiple Resaw Operator CLIA: [id number] Specimen Source Urine - Void Culture, Urine [...] S Trimeth/Sulfa S ___ S=SUSCEPTIBLE I=INTERMEDIATE R=RESISTANT P-Comprehensive Metabolic Pa karma (CMP) Reviewed date:09/10/2024 12:06:32 PM Interpretation:co2- 19, gluc 140, bun 32, Cr 1.27, gfr 46, alk phos 133, alt 62, ast 42 Performing Lab: Notes/Report: Test performed by [facility] [address] [place] [address] , [address], [place] [address] Ralph Wu MD, Multiple Resaw Operator CLIA: [id number] Sodium 137 135-145 mmol/L Potassium 4.1 3.5-5.3 [...] 0.3 <0.2-1.2 mg/dL A/G Ratio 2.2 1.1-2.5 Urinalysis - Inhouse Reviewed date:09/08/2024 05:03:46 PM Interpretation: Performing Lab: Notes/Report: Color/Clarity yellow/cloudy Leuk 2+ Nitrite pos Urobili 3.2 Protein trace pH 6.0 Blood 1+ Sp. Gr. 1.025 Ketone neg Bili neg Gluc neg CBC Fingerstick (in house) Reviewed date:06/16/2024 04:29:14 [...] - 38 plat 179 100 - 400 X ray : Wrist, left Reviewed date:10/31/2023 02:17:38 PM Interpretation:Negative Performing Lab: Notes/Report: Negative CBC Fingerstick (in house) Reviewed date:10/30/2023 08:53:55 AM Interpretation: Performing Lab: Notes/Report: wbc 8.6 3.5 - 10 lym 27.6% 15 - 50 mid 6.1% 2 - 15 gran 66.3% 35 - 80 rbc 4.98 3.5 - 5.5 hgb 14.3 11.5 - 16.5 hct 43.2 35 - 55 mcv 86.7 75 - 100 mch 28.6 25 - 35 mchc 33.0 31 - 38 plat 203 100 - 400 CBC Fingerstick (in house) Reviewed date:10/30/2023 08:53:55 AM Interpretation: Performing Lab: Notes/Report: wbc 8.6 3.5 - 10 lym 27.6% 15 - 50 mid 6.1% 2 - 15 gran 66.3% 35 - 80 rbc 4.98 3.5 - 5.5 hgb 14.3 11.5 - 16.5 hct 43.2 35 - 55 mcv 86.7 75 - 100 mch 28.6 25 - 35 mchc 33.0 31 - 38 plat 203 100 - 400 Medications Medication SIG (Take, Route, Frequency, Duration) Notes Start Date End Date Status Probiotic Formula Ac tive Sulfamethoxazole-Trimethopr im 800-160 MG 1 tablet Orally twice a day; Duration: 7 days 09/08/2024 Active Fluconazole 100 MG 1 tablet Orally once daily; Duration: 7 days 05/04/2023 Active Flonase Allergy Relief 50 MCG/ACT 1 spray in each nostril Nasally Once a day 01/24/2023 Active Voltaren 1 % 2 grams Externally f our times a day as needed 05/19/2024 Active Prevacid 24HR 15 MG 2 cap(s) orally once a day Active Myrbetriq 50 MG 1 tablet Orally once daily; Duration: 90 days Active Metoprolol Succinate ER 50 MG TAKE 1 TABLET BY MOUTH ONCE DAILY; Duration: 90 Active Irbesartan-hydroCHLOROthiaz brittany 300-12.5 MG 1 tablet Orally Once a day; Duration: 30 days Active amLODIPine Besylate 5 MG TAKE 1 TABLET B Y MOUTH ONCE DAILY; Duration: 90 Active Immunizations Vaccine Route Administration Date Status Comme nts [...] months and older IM Intramuscular 12/22/2009 Administered Problems Problem Type SNOMED Code ICD Code Onset Dates Problem Status W/U Status Risk Notes Problem Essential hypertension (84938484) Essential hypertension (I10) Active confirmed Problem Restless legs syndrome (41427536) Restless leg syndrome (G25.81) Active confirmed Problem Obese class I (988922665009905) BMI 33.0-33.9,adult (Z68.33) Active confirmed Problem Overactive urinary bladder (disorder) (828774969) OAB (overactive bladder) (N32.81) Active confirmed Problem Seasonal allergic rhinitis (857959416) Seasonal allergic reaction (J30.2) Active confirmed Problem Chronic pain (48478381) Other chronic pain (G89.29) Active confirmed Problem Fatty liver (357105487) Fatty liver (K76.0) Active confirmed Problem Gastroesophageal reflux disease (disorder) (929784657) Chronic GERD (K21.9) Active confirmed Problem Joint laxity of right knee (M23.8X1) Active confirmed Problem Obesity (611896917) Non morbid obesity (E66.9) Active confirmed Problem Seasonal allergic rhinitis (102055914) Seasonal allergic rhinitis, unspecified trigger (J30.2) Active confirmed Problem Allergic rhinitis (44602541) Allergic rhinitis, unspecified seasonality, unspecified trigger (J30.9) Active confirmed Problem Chronic kidney disease stage 3A (disorder) (629507239) Stage 3a chronic kidney disease (CKD) (N18.31) Active confirmed Vital Signs Heart Rate 85 /min 09/08/2024 Blood pressure diastolic 76 mm Hg 09/08/2024 Height 63 in 09/08/2024 Blood pressure systolic 142 mm Hg 09/08/2024 Weight 191.4 lbs 09/08/2024 BMI 33.9 kg/m2 09/08/2024 Encounters Encounter Location Date Provider Diagnosis [facility] [address] [facility] [address] [place] [id number] 10/19/2023 Bhargav Farias Unspecified fall, initial encounter W19.XXXA ; Unspecified place in unspecified non-institutional (private) residence as the place of occurrence of the external cause Y92.009 ; Abrasion of left forearm, initial encounter S50.812A and Acute pain of left shoulder M25.512 [facility] [address] [facility] [address] [place], [place] [id number] 10/29/2023 Bhargav Barnet Left wrist pain M25. 532 and Acute rhinitis J00 [facility] [address] [facility] [address] [place], [place] [id number] 11/23/2023 Bhargav Barnet Pain in left wrist M25.532 ; Joint laxity of left hand M25.242 and Colon cancer screening Z12.11 [facility] [address] [facility] [address] [place], [place] [id number] 05/19/2024 Bhargav Barnet Pes anserinus bursit is of left knee M70.52 and OAB (overactive bladder) N32.81 [facility] [address] [place], [place] [id number] 06/16/2024 Bhargav Barnet Acute cough R05.1 [facility] [address] [facility] [address] [place], [place] [id number] 06/27/2024 Bhargav Barnet Acute URI J06.9 ; St age 3a chronic kidney disease (CKD) N18.31 ; Essential hypertension I10 ; BMI 33.0-33.9,adult Z68.33 and Non morbid obesity E66.9 [facility] [address] [facility] [address] [place], [place] [id number] 07/04/2024 Bhargav Barnet Acute URI J06.9 [facility] [address] [facility] [address] [place], [place] [id number] 09/08/2024 Bhargav Barnet Acute UTI N39.0 ; Essential hypertension I10 ; Stage 3a chronic kidney disease (CKD) N18.31 and Fatty liver K76.0 [facility] [address] [facility] [address] [place], [place] [id number] 12/05/2023 Bhargav Barnet [facility] [address] [facility] [address] [place], [place] [id number] 09/10/2024 Bhargav Barnet [facility] [address] [facility] [address] [place] [id number] 09/12/2024 Bhargav Farias Assessments Encounter Date Diagnosis (ICD Code) Assessment Notes Treatment Notes Treatment Clinical Notes Section Notes 10/29/2023 Acute rhinitis (ICD-10 - J00) fluids, rest, supportive measures for fever/symptom relief 10/29/2023 Left wrist pain (ICD-10 - M25.532) Thumb spica splint 11/23/2023 Pain in left wrist (ICD-10 - M25.532) 11/23/2023 Joint laxity of left hand (ICD-10 - M25.242) 05/19/2024 OAB (overactive bladder) (ICD-10 - N32.81) 05/19/2024 Pes anserinus bursitis of left knee (ICD-10 - M70.52) 06/16/2024 Acute cough (ICD-10 - R05.1) 10/19/2023 Unspecified fall, initial encounter (ICD-10 - W19.XXXA) 10/19/[address] in unspecified non-institutional (private) residence as the place of occurrence of the external cause (ICD-10 - Y92.009) 06/27/2024 Acute URI (ICD-10 - J06.9) 06/27/2024 Stage 3a chronic kidney disease (CKD) (ICD-10 - N18.31) 07/04/2024 Acute URI (ICD-10 - J06.9) 09/08/2024 Essential hypertension (ICD-10 - I10) 09/08/2024 Acute UTI (ICD-10 - N39.0) 09/08/2024 Stage 3a chronic kidney disease (CKD) (ICD-10 - N18.31) 06/27/2024 Essential hypertension (ICD-10 - I10) 11/23/2023 Colon cancer screening (ICD-10 - Z12.11) 10/19/2023 Abrasion of left forearm, initial encounter (ICD-10 - S50.812A) 06/27/2024 BMI 33.0-33.9,adult (ICD-10 - Z68.33) 09/08/2024 Fatty liver (ICD-10 - K76.0) 10/19/2023 Acute pain of left shoulder (ICD-10 - M25.512) symptomatic treatment of pain. Return if worsening of pain or developement of new symptoms 06/27/2024 Non morbid obesity (ICD-10 - E66.9) Plan Of Treatment Pending Test Test Name Order Date colonoscopy 11/23/2023 Next Appt Details Provider Name:Bhargav Lao ry, 09/22/2024 10:45:00 AM, [address], [address], [place], [place], [id number], Insurance Providers Payer Name Payer Address Payer Phone Subscriber Number Group Number Insured Name Patient Relationship to Insured Coverage Start Date Coverage End Date [employer] (MEDICAR E) [address] [address] [place] [phone] [id number] ARIANNA ALSTON Spouse - patient is the spouse of the insured Medications Administered Medication Instructions Date of Administration Dosage Notes Bicillin LA 1,200,000 01/27/2013 celestone 11/20/2011 Depo- Medrol 40 mg/ml 11/16/2006 1 mL Dexamethasone 09/18/2007 1 mL Medical (General) History Medical History History ICD Code Hypertension Seasonal Allergies Esophageal Reflux Plantar Fascitis Lumbar Disc Disease Lumbar Facet Arthropathy Osteoarthritis, Hips and Knees Fatty Liver Surgical History Surgery Date(Month/Year) LT Breast Cyst Removal [facility]- [facility] 10/28/2010 Hysterectomy & Bladder Stapled 2 RT Shoulder 10/30/2012 RT Bicep Repair 09/11/2018 Hospitalization History Reason Date(Month/Year) Vertigo- [facility] 09/22/2018
--- OUTSIDE RECORDS SUMMARY | 2024-09-22 08:58 | XMS_ITS | Encounter Summary ---
Author Organization Healthcare Address [address] [place] [address] Care Team Providers Care Legal Coordinator Name Role Phone Bhargav Farias MD Primary Care Provider [phone] Encounter Details Date Type Department Care Team ([facility] st Contact Info) Description 04/30/2020 Orders Only External Location [address] [place] [address] Provider, External Social History Tobacco Use Types [...] on filedocumented in this encounter Care Teams Legal Coordinator Relationship Specialty Start Date End Date Bhargav Farias MD [address] [facility] [address] [place] [address] PCP - General 11/02/20 documented as of this encounter
--- OUTSIDE RECORDS SUMMARY | 2024-09-22 08:58 | XMS_ITS | Encounter Summary ---
Author Organization [facility] Address [address] [place] [address] Care Team Providers Care Commercial Loan Underwriter Name Role Phone Bhargav Farias MD Primary Care Provider [phone] Encounter Details Date Type Department Care Team ([facility] st Contact Info) Description 07/07/2019 Orders Only External Location [address] [place] [address] Provider, External Social History Tobacco Use Types [...] on filedocumented in this encounter Care Teams Commercial Loan Underwriter Relationship Specialty Start Date End Date Bhargav Farias MD [address] [place] [address] PCP - General 11/02/20 documented as of this encounter
--- OUTSIDE RECORDS SUMMARY | 2024-09-22 08:58 | XMS_ITS | Clinical Summary ---
Author Organization [facility] Address [address] [place] [address] Care Team Providers Care Mobile Electronics Installer Name Role Phone Bhargav Farias MD Primary Care Provider [phone] Allergies Active Allergy Reactions Criticality Noted Date [...] on package instructions 21 tablet 5 Active Additional Information Patient not taking.Reported on 09/04/2024 nitrofurantoin (Macrodantin) 100 MG capsule Take by mouth 4 times a day. Active Hospital, Clinic, or Other Facility Administered Medication Ordered Dose Route Frequency Start Date End Date Status bupivacaine PF (Marcaine) 0.25 % injection 10 mgIndications:Greater trochanteric bursitis of both hips,Tendinopathy of right gluteus medius 10 mg IJ Once 06/12/2021 Acti ve lidocaine (Xylocaine) 1 % injection 4 mLIndications:Greater trochanteric bursitis of both hips,Tendinopathy of right gluteus medius 4 mL IJ Once 06/12/2021 Acti ve triamcinolone acetonide (Kenalog-40) injection 80 mgIndications:Greater trochanteric bursitis of both hips,Tendinopathy of right gluteus medius 80 mg IX Once 06/12/2021 Acti ve bupivacaine (Marcaine) 0.5 % injection 5 mLIndications:Primary osteoarthritis of one knee, right 5 mL IJ Once PRN Procedure 09/04/2024 09/04/2024 Ended methylPREDNISolone acetate (DEPO-Medrol) injection 20 mgIndications:Primary osteoarthritis of one knee, right 20 mg IX Once PRN Procedure 09/04/2024 09/04/2024 Ended Active Problems Problem Noted Date Diagnosed Date Osteoarthritis 09/13/2023 Hypertension 09/13/2023 Knee osteoarthritis 05/13/2020 Cervical radiculopathy due t o degenerative joint disease of spine 07/16/2018 Rotator cuff tendinitis, right 04/07/2018 Encounters Date Type Department Care Team Description 09/04/2024 8:30 AM EDT Office Visit [facility] [address], [address] [place] [address] Franky Platt MD Primary osteoarthritis of one knee, right (Primary Dx); Rotator cuff disorder, right 09/04/2024 Travel from Last 3 Months Family History Medical History Relation Name Comments [...] Date Smoking Tobacco: Former Cigarettes Q uit: 1975 Smokeless Tobacco: Never Tobacco Cessation:Counseling Given: Not [...] Pressure 112/68 09/04/2024 8:36 AM EDT Pulse 68 09/13/2023 9:35 AM EDT Temperature 35.9 C (96.6 F) 06/09/2021 11:03 AM EDT Respiratory Rate 20 09/13/2023 9:35 AM EDT Oxygen Saturation 99% 09/13/2023 9:35 AM EDT Inhaled Oxygen Concentration - - Weight 81.6 kg (180 lb) 09/04/2024 8:36 AM EDT Height 160 cm (5' 3 ) 09/04/2024 8:36 AM EDT Body Mass Index 31.89 09/04/2024 8:36 AM EDT Plan of Treatment Health Maintenance Due Date Last Done Comments [facility]-Bone Density Scan 1957 [facility]-Hepatitis C Screening 1957 [facility]-Medicare Annual Wellness (AWV) 1955 [facility]-/Child/Adol SDOH Screenings 1955 [facility]- SDOH Screenings 09/17/1975 [facility]-Adult SDOH Screenings 09/17/1975 CT Colonography 2002 Colonoscopy 2002 FIT-DNA 2002 FIT 2002 FOBT 2002 Sigmoidoscopy 2002 [facility]-Colorectal Cancer Screening 2002 [facility]-Breast Cancer Screening 09/17/2007 [facility]-Zoster Vaccines (1 of 2) 09/17/2007 [facility]-DTaP,Tdap,and Td Vaccines (2 - Td or Tdap) 12/23/2019 12/22/2009, 11/16/2004, 04/23/1996 [id number] Vaccine (4 - season) 2023 01/05/2021, 05/19/2020, 04/14/2020 [facility]-Influenza Vaccine (#1) 10/20/202401/27, 01/23/2020, 02/14/2019, Additional history exists [facility]-Depression Screening 01/30/2025 01/31/2024 [facility]-RSV Vaccine: 60+ Years or (1 - 1-dose 75+ series) 2032 [facility]-Hepatitis A Vaccines Aged Out 06/21/2005, 04/2004 No longer eligible based on patient's age to complete this topic [facility]-Pneumococcal Vaccine: 50+ Years Completed 11/14/2022 [facility]-Obesity Intervention Completed 025, 05/22/2024, 01/31/2024, Additional history exists HPV Vaccines Aged Out [...] on patient's age to complete this topic Procedures Procedure Name Priority Date/Time Associated Diagnosis Comments UT ARTHROCENTESIS ASPIR&/INJ MAJOR JT/BURSA W/O US Routine 09/04/2024 8:50 AM EDT Primary osteoarthritis of one knee, right from Last 3 Months Results * UT ARTHROCENTESIS ASPIR&/INJ MAJOR JT/BURSA W/O US (09/04/2024 [...] to verify the correct patient, procedure, equipment, field support technician and site/side marked as required. Patient was prepped and draped in the usual sterile fashion. Franky Platt MD IN CLINIC/BEDSIDE ORDERABLES Fin al Result from Last 3 Months Insurance [employer] MEDICARE Care Teams Mobile Electronics Installer Relationship Specialty Start Date End Date Bhargav Farias MD [facility] [address] PCP - General 11/02/20
--- OUTSIDE RECORDS SUMMARY | 2024-09-22 08:58 | XMS_ITS | Encounter Summary ---
Author Organization Healthcare Address [address] [place] [id number] Care Team Providers Care Automotive Sales Associate Name Role Phone Bhargav Farias MD Primary Care Provider [phone] Encounter Details Date Type Department Care Team ([facility] st Contact Info) Description 04/09/2023 Orders Only External Location [address] [place] [address] Bhargav Farias MD [address] [facility] [address] [id number] Social History Tobacco Use Types Packs/Day Years [...] documented as of this encounter Care Teams Automotive Sales Associate Relationship Specialty Start Date End Date Bhargav Farias MD [address] [place] [address] PCP - General 11/02/20 documented as of this encounter
--- OUTSIDE RECORDS SUMMARY | 2024-09-22 08:58 | XMS_ITS | Encounter Summary ---
Author Organization Healthcare Address [address] [place] [address] Care Team Providers Care Tomographic Tech Name Role Phone Bhargav Farias MD Primary Care Provider [phone] Encounter Details Date Type Department Care Team ([facility] st Contact Info) Description 04/30/2020 Orders Only External Location [address] [place] [address] Provider, External Social History Tobacco Use Types [...] on filedocumented in this encounter Care Teams Tomographic Tech Relationship Specialty Start Date End Date Bhargav Farias MD [address] [facility] [address] [place] [address] PCP - General 11/02/20 documented as of this encounter
--- OUTSIDE RECORDS SUMMARY | 2024-09-22 08:58 | XMS_ITS | Clinical Summary ---
Author Organization [facility] Address [address] [place] [address] Care Team Providers Care Hostel Parent Name Role Phone Bhargav Farias MD Primary Care Provider + [phone] Allergies Active Allergy Reactions Criticality Noted Date Comments Cefdinir Rash,Unknown (See Comments) Low 11/14/19 17 Cefuroxime Axetil Rash Low 02/07/2018 Clindamycin/Lincomycin GI Intolerance,Ot her (See Comments) Low 02/07/2018 Penicillins Rash,Unknown (See Comments) Low 017 Medications lansoprazole (PREVACID) 15 MG capsule Take 1 capsule by mouth Daily. Active irbesartan-hydr ochlorothiazide (AVALIDE) 300-12.5 MG tablet 2 Active amLODIPine (NORVASC) 5 MG tablet 2 Active Probiotic Product capsule Take 1 capsule by mouth Daily. Active Myrbetriq 50 MG tablet sustained-relea se 24 hour 24 hr tablet Take 50 mg by mouth Daily. 30 tablet 11 2 Active metoprolol succinate XL (TOPROL-XL) 50 MG 24 hr tablet Take 1 tablet by mouth Daily. 4 Active fluticasone (FLONASE) 50 MCG/ACT nasal spray Administer 1 spray into the nostril(s) as directed by provider As Needed. 3 Active Hydrocort-Pramo xine, Perianal, (Analpram HC) 2.5-1 % rectal creamIndication s:External hemorrhoids,Adelina fissure Insert into the rectum 2 (Two) Times a Day. 30 g 1 4 Active Additional Information Patient taking differently:Rectal 2 Times Daily,As needed, Reported on 06/26/2024 clobetasol (TEMOVATE) 0.05 % ointment Apply 1 Application topically to the appropriate area as directed 2 (Two) Times a Day. 60 g 3 4 Active benzonatate (TESSALON) 200 MG capsule Take 1 capsule by mouth. As needed Active Active Problems Problem Noted Date Diagnosed Date OAB (overactive bladder) 10/26/2020 Foot fracture 02/20/2016 Overview (02/06/2017): left Midline cystocele 02/03/2016 Post-menopause on HRT (hormone replacement thera py) Osteoarthritis IBS (irritable bowel syndrome) Overview (02/03/2016): constipation Hypertension GERD (gastroesophageal reflux disease) Resolved Problems Problem Noted Date Diagnosed Date Resolved Date Menopause 10/26/2020 Encounters Date Type Department Care Team Description 06/26/2024 10:15 AM EDT Office Visit [facility] [address] [id number] Ada Lu, FLOORPERSON Encounter for gynecological examination without abnormal finding (Primary Dx); Encounter for osteoporosis screening in asymptomatic postmenopausal patient; Encounter for screening mammogram for malignant neoplasm of breast 06/26/2024 Travel from Last 3 Months Family History Medical History Relation Name Comments Coronary artery disease Father Brain cancer Mother Relation Name Status Comments Father Mother Social History Tobacco Use Types Packs/Day Years Used Date Smoking Tobacco: Never Smokeless Tobacco: Never Tobacco Cessation:Counseling Given: No Alcohol Use Standard Drinks/Week Comments No 0 (1 standard drink = 0.6 oz pur e alcohol) Comments No Sex and Gender Information Value Date Recorded Sex Assigned at Not on file Legal Sex Female 1:17 PM EDT Gender Identity Not on file Sexual Orientation Not on file Last Filed Vital Signs Vital Sign Reading Time Taken Comments Blood Pressure 118/70 06/26/2024 9:48 AM EDT Pulse - - Temperature - - Respiratory Rate 16 06/26/2024 9:48 AM EDT Oxygen Saturation - - Inhaled Oxygen Concentration - - Weight 85.7 kg (189 lb) 06/26/2024 9:48 AM EDT Height 160 cm (5' 2.99 ) 03/10/2024 2:29 PM EST Body Mass Index 33.49 03/10/2024 2:29 PM EST Plan of Treatment Upcoming Encounters Date Type Department Care Team (Late st Contact Info) Description 07/02/2025 9:00 AM EDT Office Visit [facility] [address] [facility] [address] [place] [id number] Ada Lu, JAE [address] [facility] [address] [place] [address] Health Maintenance Due Date Last Done Comments DXA SCAN 1957 COLOGUARD 2002 COLON CANCER SCREENING 5 YEA R SIGMOIDOSCOPY 2002 COLONOSCOPY 2002 COLORECTAL CANCER SCREENING 2002 CT COLONOGRAPHY 2002 FECAL OCCULT BLOOD TEST 2002 FIT Testing (1 year) 2002 ZOSTER VACCINE (1 of 2) 09/17/2007 TDAP/TD VACCINES (3 - Tdap) 11/16/2014 11/16/2004, 0 04/23/1996 ANNUAL WELLNESS VISIT 01/10/2016 HEPATITIS C SCREENING 01/10/2016 COVID-19 Vaccine ( season) 2023 01/05/2021, 05/19/2020, 04/14/2020 INFLUENZA VACCINE 11/19/2024 01/27/2021, , 02/14/2019 MAMMOGRAM 09/18/2025 09/19/2023, 01/20, 01/31/2016 Pneumococcal Vaccine 50+ Completed 11/14/2022 Procedures Procedure Name Priority Date/Time Associated Diagnosis Comments SCANNED - MAMMO 09/19/2023 from Last 3 Months or Most Recently Relevant to Health Maintenance Results * MAMMO Scan (09/19/2023) Anatomical Region Laterality Modality Other us Rhina Pacheco APRN CHART REVIEW TABS F inal Result from Last 3 Months or Most Recently Relevant to Health Maintenance Insurance Medicare [employer] PPO Care Teams Hostel Parent Relationship Specialty Start Date End Date Bhargav Farias MD [address] [facility] [address] [place] [id number] PCP - General Family Medicine 02/03/16
== END 2024-09-22 23:59 | disposition home or self-care (01) ==
LOC: RAD 08:48
PROVIDERS: PCP Family Medicine; Visit Provider Nurse Practitioner Women's Health
DX: Z13.820 Encounter for screening for osteoporosis (principal); Z78.0 Asymptomatic menopausal state
CPT/HCPCS: 77080

== ENCOUNTER 2024-09-30 15:06 | Outpatient (CLI) | payer MEDICARE, SELFPAY ==
--- OUTSIDE RECORDS SUMMARY | 2024-07-04 06:15 | XMS_ITS ---
Author Organization [facility] Address [address] [place] [id number] Care Team Providers Care Fountain Brush Assembler Name Role Phone Bhargav aFrias Primary Care Provider Allergies Allergen (clinical drug [...] 07/04/2024 Encounters Encounter Location Date Provider Diagnosis [facility] [address] [facility] [address] [place] [id number] 07/04/2024 Bhargav Farias Acute URI J06.9 Assessments Encounter Date Diagnosis (ICD Code) Assessment Notes Treatment Notes Treatment Clinical Notes Section Notes 07/04/2024 Acute URI (ICD-10 - J06.9) Plan Of Treatment Medication Medication Name Sig Start Date Stop Date Notes Benzonatate 200 MG 1 capsule as needed Orally Three times a day 07/04/2024 Next Appt Details Follow Up: prn, Reason: Progress Notes * ZAINAB ALSTONOB:1955 ( 69 yo F)Acc No.[id number]:07/04/2024 Progress Notes Patient: MIREYA TAPIA Provider: Kristen Farias M.D. :1955 A ge:68 Y S ex:Female Date:07/04/2024 Address:[address] [place] [address] [id number] Subjective: * Chief Complaints: * 1 . [...] T Breast Cyst Removal , [facility] 10/28/2010, Hysterectomy & Bladder Stapled 05/08/2011, RT Shoulder 10/30/2012, RT Bicep Repair 09/11/2018. * Hospitalization/Major Diagno stic Procedure: Vanita andrade- [facility] ER 09/22/2018. * Family History: F [...] auscultation bilaterally. Assessment: * Assessment: 1. Halley wong URI - J06.9 (Primary) Plan: * Treatment: [...] G 2211 Complex e/[place], [address] CAPILLARY BLOOD DRAW, 75222 CBC WITH AUTO DIFF * Follow Up: p rn * Images: Billing Information: * Visit Code: 59954 Office Visit, Est Pt., Level 3. * Procedure Codes: G2211 Complex e/[place]. [address] CAPILLARY BLOOD DRAW. 27820 CBC WITH AUTO DIFF. * Electronic signature of Aggie Farias MD on 09/30/2024 at 03:11 PM EDT Sign off status: Pending * Provider: Kristen Farias M.D. Date: 07/04/2024 Generated for Liv miller/Ismael/Isabela on: 09/30/2024 03:11 PM EDT History and Physical Notes * HPI [...]
--- OUTSIDE RECORDS SUMMARY | 2024-09-04 08:30 | XMS_ITS | Encounter Summary ---
Author Organization [facility] Address [address] [place] [address] Care Team Providers Care Cylinder Worker Name Role Phone Bhargav Farias MD Primary Care Provider + [phone] Reason for Referral * Other Medical (Routine) - Pending Review Specialty Diagnoses / Procedures Referred By Harman borjas Referred To Contact Diagnoses Chronic pain of right knee Procedures Injection - Large Joint: R knee Franky Platt MD [address] [address] Phone: tel: fax: Referral ID Status Reason Start Date Expiration Date V isits Requested Visits Authorized [id number] Pending Review 09/04/2024 03/06/2026 1 1 Reason for Visit * Reason Comments Follow-up Follow-up Encounter Details Date Type Department Care Team (Late st Contact Info) Description 09/04/2024 8:30 AM EDT Office Visit [facility] Orthopaedic Surgery & Sports Medicine [address], [address] [place] [address] Franky Platt MD [address] [facility] [address] [place] [address] Primary osteoarthritis of one knee, [...] Never Social Drivers of Health Received from [facility] Family and Community Support Received from [facility] Abuse Screen Received from [facility] Housing Stability FAMILY HISTORY: Family History Problem [...] to verify the correct patient, procedure, equipment, help desk support and site/side marked as required. Patient was [...] Procedure Name Priority Date/Time Associated Diagnosis Comments ID ARTHROCENTESIS ASPIR&/INJ MAJOR JT/BURSA W/O US Routine 09/04/2024 8:50 AM EDT Primary osteoarthritis of one knee, right documented in this encounter Results * ID ARTHROCENTESIS ASPIR&/INJ MAJOR JT/BURSA W/O US (09/04/2024 [...] to verify the correct patient, procedure, equipment, help desk support and site/side marked as required. Patient was [...] documented as of this encounter Care Teams Cylinder Worker Relationship Specialty Start Date End Date Bhargav Farias MD [facility] [place] [address] PCP - General 11/02/20 documented as of this encounter
--- OUTSIDE RECORDS SUMMARY | 2024-09-08 12:30 | XMS_ITS ---
Author Organization [facility] Address [address] [place] [id number] Care Team Providers Care Blood And Plasma Laboratory Assistant Name Role Phone Bhargav Farias Primary Care Provider Allergies Allergen (clinical drug ingredient) Drug/Non Drug Allergy documented on EMR Reaction Allergy Type Onset Date Status amoxicillin Amoxicillin hives Drug Allergy Act odette cefdinir Cefdinir hives Drug Allergy Active lisinopril Lisinopril cough Drug Allergy Activ e clindamycin Clindamycin upset stomach Drug Allergy Active Results Component Value Reference Range Notes Urinalysis - Inhouse Reviewed date:09/08/2024 05:03:46 PM Interpretation: Performing Lab: Notes/Report: Color/Clarity yellow/cloudy Leuk 2+ Nitrite pos Urobili 3.2 Protein trace pH 6.0 Blood 1+ Sp. Gr. 1.025 Ketone neg Bili neg Gluc neg P-Comprehensive Metabolic Pa karma (CMP) Reviewed date:09/10/2024 12:06:32 PM Interpretation:co2- 19, gluc 140, bun 32, Cr 1.27, gfr 46, alk phos 133, alt 62, ast 42 Performing Lab: Notes/Report: Test performed by [facility], [facility] [address] [place] [address] , [address], [place] [address] Ralph Wu MD, Stockkeeper CLIA: [id number] Sodium 137 135-145 mmol/L Potassium 4.1 3.5-5.3 mmol/L Chloride 102 97-108 mmol/L CO2 19 20-32 mmol/L Glucose 140 65-99 mg/dL BUN 32 8-23 mg/dL Creatinine 1.27 0.50-1.00 mg/dL Calcium 9.5 8.6-10.4 mg/dL eGFR by Creatinine 46 >59 mL/min/1.73m2 Protein 6.8 6.0-8.3 g/dL Albumin 4.7 3.5-5.3 g/dL Alkaline Phosphatase 133 35-121 IU/L ALT (SGPT) 62 <5-47 IU/L AST (SGOT) 42 <5-40 IU/L Bilirubin, Total 0.3 <0.2-1.2 mg/dL A/G Ratio 2.2 1.1-2.5 P-Culture, Urine Reviewed date:09/12/2024 09:22:30 AM Interpretation: Performing Lab: Notes/Report: Test performed by [facility], [address] , [address], [place] [address] Ralph Wu MD, Stockkeeper CLIA: [id number] Specimen Source Urine - Void Culture, Urine See Below See Microbiol ogy Report Klebsiella pneumoniae 50,000-100,000 CFU /ml Klebsiella pneumoniae Sensitivity Panel See Below ____ Organism K.pneum Antibiotic INTERP ____ Amikacin S Ampicillin R Aztreonam S Cefepime S Cefoxitin S Ceftazidime S Ceftriaxone S Cefuroxime S Ciprofloxacin S Ertapenem S Gentamicin S Imipenem S Levofloxacin S Meropenem S Nitrofurantoin R Piperacillin/Tazo S Tetracycline S Tobramycin S Trimeth/Sulfa S ___ S=SUSCEPTIBLE I=INTERMEDIATE R=RESISTANT P-Phosphorus Reviewed date:09/10/2024 12:06:32 PM Interpretation:Normal Performing Lab: Notes/Report: Test performed by [facility] , [facility], [place] [address] Ralph Wu MD, Stockkeeper CLIA: [id number] Phosphorus 3.2 2.5-4.5 mg/dL P-Parathyroid Hormone (PTH) Intact Reviewed date:09/10/2024 12:06:32 PM Interpretation:84.6 Performing Lab: Notes/Report: [facility] [address] , [facility], [place] [address] Ralph Wu MD, Stockkeeper CLIA: [id number] Parathyroid Hormone (PTH) Intact 84.6 15.0-65.0 pg/mL P-Microalbumin/Creatinine, R andom Urine Sample Reviewed date:09/10/2024 12:06:33 PM Interpretation:Normal Performing Lab: Notes/Report: Test performed by [facility] [address] , [facility], [place] [address] Ralph Wu MD, Stockkeeper CLIA: [id number] Albumin/Creatinine Ratio, Urine 26 0-30 ug/mg Microalbumin, Urine, Random 3.7 Creatinine, Urine 143.5 REASON FOR VISIT lab work and check up Medications Medication SIG (Take, Route, Frequency, Duration) Notes Start Date End Date Status Probiotic Formula Ac tive Fluconazole 100 MG 1 tablet Orally once daily; Duration: 7 days 05/04/2023 Active Flonase Allergy Relief 50 MCG/ACT 1 spray in each nostril Nasally Once a day 01/24/2023 Active Voltaren 1 % 2 grams Externally f our times a day as needed 05/19/2024 Active Prevacid 24HR 15 MG 2 cap(s) orally once a day Active Sulfamethoxazole-Trimethopr im 800-160 MG 1 tablet Orally twice a day; Duration: 7 days 09/08/2024 Active Metoprolol Succinate ER 50 MG TAKE 1 TABLET BY MOUTH ONCE DAILY; Duration: 90 Active Irbesartan-hydroCHLOROthiaz brittany 300-12.5 MG 1 tablet Orally Once a day; Duration: 30 days Active amLODIPine Besylate 5 MG TAKE 1 TABLET B Y MOUTH ONCE DAILY; Duration: 90 Active Myrbetriq 50 MG 1 tablet Orally once daily; Duration: 90 days Active Problems Problem Type SNOMED Code ICD Code Onset Dates Problem Status W/U Status Risk Notes Problem Fatty liver (K76.0) Active confirmed Vital Signs Blood pressure systolic 142 mm Hg 09/09/19 25 Blood pressure diastolic 76 mm Hg 025 Heart Rate 85 /min 09/08/2024 Height 63 in 09/08/2024 Weight 191.4 lbs 09/08/2024 BMI 33.9 kg/m2 09/08/2024 Encounters Encounter Location Date Provider Diagnosis [facility] [address] [facility] [address] [place], [place] [id number] 09/08/2024 Bhargav Farias Acute UTI N39.0 ; Essential hypertension I10 ; Stage 3a chronic kidney disease (CKD) N18.31 and Fatty liver K76.0 Assessments Encounter Date Diagnosis (ICD Code) Assessment Notes Treatment Notes Treatment Clinical Notes Section Notes 09/08/2024 Acute UTI (ICD-10 - N39.0) 09/08/2024 Essential hypertension (ICD-10 - I10) 09/08/2024 Stage 3a chronic kidney disease (CKD) (ICD-10 - N18.31) 09/08/2024 Fatty liver (ICD-10 - K76.0) Plan Of Treatment Medication Medication Name Sig Start Date Stop Date Notes Sulfamethoxazole-Trimethopri m 800-160 MG 1 tablet Orally twice a day; Duration: 7 days 09/08/2024 Next Appt Details Follow Up: via phone to repo rt test results, Reason: Progress Notes * WILLIE ALSTONSHRUTHIOB:1955 ( 69 yo F)Acc No.[id number]:09/08/2024 Progress Notes Patient: MIREYA ATPIA Provider: Kristen Farias M.D. :1955 A ge:68 Y S ex:Female Date:09/08/2024 Address:[address] [place], [place] [address], [id number] Subjective: * Chief Complaints: * 1 . Lab work and check up. * HPI: U rology: 68 year old female presents with c/o flank pain. c/o Pressure. c/o UTI P t states she had a UTI last week and she states its not getting better?. C ardiology: c/o Blood Pressure Elevated P t here to f/u on hypertension. Pt states she is doing well and does not have any concerns with bp. c/o Hyperlipidemia P t is not fasting today. Pt states she will come back in the morning to have blood drawn. * ROS: D ERMATOLOGY: no R bryon. [...] T Breast Cyst Removal , D&C- [facility] 10/28/2010, Hysterectomy & Bladder Stapled 05/08/2011, RT Shoulder 10/30/2012, RT Bicep Repair 09/11/2018. * Hospitalization/Major Diagno stic Procedure: Vanita andrade- [facility] ER 09/22/2018. * Family History: F [...] 1 tablet Orally once daily , Taking Metoprolol Succinate ER 50 MG Tablet Extended Release 24 Hour TAKE 1 TABLET BY MOUTH ONCE DAILY , Taking amLODIPine Besylate 5 MG Tablet TAKE 1 TABLET BY MOUTH ONCE DAILY , Taking Irbesartan-hydroCHLOROthiazide 300-12.5 MG Tablet 1 tablet Orally Once a day , Discontinued Benzonatate 200 MG Capsule 1 capsule as needed Orally Three times a day , Medication List reviewed and reconciled with the patient * Allergies: L isinopril: cough - Side Effects, Cefdinir: hives - Allergy, Clindamycin: upset stomach, Amoxicillin: hives. Objective: * Vitals: W t: 191.4, Temp: 97.7, BP: 142/76, HR: 85, Nurse: pe, Ht: 63, BMI:33.9. * Examination: G eneral Examination: General Appearance: N AD. H eart: R SR. L ungs:?clear to auscultation. B ack: n o CVA tenderness. Assessment: * Assessment: 1. A cute UTI - N39.0 (Primary) 2 . E ssential hypertension - I10 ? 3 . S tage 3a chronic kidney disease (CKD) - N18.31 4 . F atty liver - K76.0 Plan: * Treatment: Value Reference Range C ulture, Urine See Below - * S pecimen Source Urine - Void - * S ensitivity Panel See Below - * K lebsiella pneumoniae 50,000-100,000 CFU/ml Klebsiella pneumoniae - * Ada Lundberg 09/12/2024 09:2 2:25 AM EDT > See phone encounter ?LAB: Urinalysis - Inhouse (Collection Date & Time - 09/08/2024)* Value Reference Range C olor/Clarity yellow/cloudy * L euk 2+ * N itrite pos * U robili 3.2 * P rotein trace * p H 6.0 * B lood 1+ * S p. Gr. 1.025 * K etone neg * B maldonado neg * G cindy neg * Rena Wolf 09/08/2024 0 4:40:59 PM EDT > Provider reviewed results while patient in office. 2.?Essential hypertension?LAB: P-Comprehensive Metabolic Panel (CMP) (Collection Date & Time - 09/08/2024 03:45 PM)?co2- 19, gluc 140, bun 32, Cr 1.27, gfr 46, alk phos 133, alt 62, ast 42* Value Reference Range A /G Ratio 2.2 1.1-2.5 - * A lbumin 4.7 3.5-5.3 - g/dL * A lkaline Phosphatase 133 H 35-121 - IU/L * A LT (SGPT) 62 H <5-47 - IU/L * A ST (SGOT) 42 H <5-40 - IU/L * B ilirubin, Total 0.3 <0.2-1.2 - mg/dL * B UN 32 H 8-23 - mg/dL * C alcium 9.5 8.6-10.4 - mg/dL * C hloride 102 97-108 - mmol/L * C O2 19 L 20-32 - mmol/L * C reatinine 1.27 H 0.50-1.00 - mg/dL * G lucose 140 H 65-99 - mg/dL * P otassium 4.1 3.5-5.3 - mmol/L * S odium 137 135-145 - mmol/L * P rotein 6.8 6.0-8.3 - g/dL * e GFR by Creatinine 46 L >59 - mL/min/1.73m2 * Fifi Mar 09/11/19 12:06:22 PM EDT > See phone encounter ?LAB: P-Microalbumin/Creatinine, Random Urine Sample (Collection Date & Time - 09/08/2024 03:45 PM)?Normal* Value Reference Range A lbumin/Creatinine Ratio, Urine 26 0-30 - ug /mg * C reatinine, Urine 143.5 - mg/dL * M icroalbumin, Urine, Random 3.7 - mg/dL * Fifi Mar 09/11/19 12:06:22 PM EDT > See phone encounter 3.?Stage 3a chronic kidney disease (CKD)?LAB: P-Comprehensive Metabolic Panel (CMP) (Collection Date & Time - 09/08/2024 03:45 PM)?co2- 19, gluc 140, bun 32, Cr 1.27, gfr 46, alk phos 133, alt 62, ast 42* Value Reference Range A /G Ratio 2.2 1.1-2.5 - * A lbumin 4.7 3.5-5.3 - g/dL * A lkaline Phosphatase 133 H 35-121 - IU/L * A LT (SGPT) 62 H <5-47 - IU/L * A ST (SGOT) 42 H <5-40 - IU/L * B ilirubin, Total 0.3 <0.2-1.2 - mg/dL * B UN 32 H 8-23 - mg/dL * C alcium 9.5 8.6-10.4 - mg/dL * C hloride 102 97-108 - mmol/L * C O2 19 L 20-32 - mmol/L * C reatinine 1.27 H 0.50-1.00 - mg/dL * G lucose 140 H 65-99 - mg/dL * P otassium 4.1 3.5-5.3 - mmol/L * S odium 137 135-145 - mmol/L * P rotein 6.8 6.0-8.3 - g/dL * e GFR by Creatinine 46 L >59 - mL/min/1.73m2 * Fifi Mar 09/11/19 12:06:22 PM EDT > See phone encounter ?LAB: P-Phosphorus (Collection Date & Time - 09/08/2024 03:45 PM)?Normal* Value Reference Range P hosphorus 3.2 2.5-4.5 - mg/dL * Fifi Mar 09/11/19 12:06:22 PM EDT > See phone encounter ?LAB: P-Parathyroid Hormone (PTH) Intact (Collection Date & Time - 09/08/2024 03:45 PM)?84.6* Value Reference Range P arathyroid Hormone (PTH) Intact 84.6 H 15.0-65. 0 - pg/mL * Fifi Mar 09/11/19 12:06:22 PM EDT > See phone encounter ?LAB: P-Microalbumin/Creatinine, Random Urine Sample (Collection Date & Time - 09/08/2024 03:45 PM)?Normal* Value Reference Range A lbumin/Creatinine Ratio, Urine 26 0-30 - ug /mg * C reatinine, Urine 143.5 - mg/dL * M icroalbumin, Urine, Random 3.7 - mg/dL * Fifi Mar 09/11/19 12:06:22 PM EDT > See phone encounter 4.?Fatty liver?LAB: P-Comprehensive Metabolic Panel (CMP) (Collection Date & Time - 09/08/2024 03:45 PM)?co2- 19, gluc 140, bun 32, Cr 1.27, gfr 46, alk phos 133, alt 62, ast 42* Value Reference Range A /G Ratio 2.2 1.1-2.5 - * A lbumin 4.7 3.5-5.3 - g/dL * A lkaline Phosphatase 133 H 35-121 - IU/L * A LT (SGPT) 62 H <5-47 - IU/L * A ST (SGOT) 42 H <5-40 - IU/L * B ilirubin, Total 0.3 <0.2-1.2 - mg/dL * B UN 32 H 8-23 - mg/dL * C alcium 9.5 8.6-10.4 - mg/dL * C hloride 102 97-108 - mmol/L * C O2 19 L 20-32 - mmol/L * C reatinine 1.27 H 0.50-1.00 - mg/dL * G lucose 140 H 65-99 - mg/dL * P otassium 4.1 3.5-5.3 - mmol/L * S odium 137 135-145 - mmol/L * P rotein 6.8 6.0-8.3 - g/dL * e GFR by Creatinine 46 L >59 - mL/min/1.73m2 * Fifi Mar 09/11/19 12:06:22 PM EDT > See phone encounter * Procedure Codes: G 2211 Complex e/[place] [address] Urinalysis, no micro * Follow Up: v ia phone to report test results * Images: Billing Information: * Visit Code: 95247 Office Visit, Est Pt., Level 4. * Procedure Codes: G2211 Complex e/[place]. [address] Urinalysis, no micro. * Electronic signature of Aggie Farias MD on 09/30/2024 at 03:11 PM EDT Sign off status: Pending * Provider: Kristen Farias M.D. Date: 0 09/08/2024 Generated for Jilliani paul/Ismael/eTransmitting on: 0 09/30/2024 03:11 PM EDT History and Physical Notes * HPI (History of Present Illness) Category Sub-Category Detail Notes Category Not es Cardiology Blood Pressure Elevated Pt here to f/u on hypertension. Pt states she is doing well and does not have any concerns with bp Hyperlipidemia Pt is not fasting to day. Pt states she will come back in the morning to have blood drawn Urology flank pain Pressure UTI Pt states she had a UTI last week and she states its not getting better Examination Category Sub-Category Detail Notes Category Not es General Examination Heart: RSR Lungs: clear to auscultatio n General Appearance: NAD Back: no CVA tenderness
--- OUTSIDE RECORDS SUMMARY | 2024-09-22 06:45 | XMS_ITS ---
Author Organization [facility] Address [address] [place] [id number] Care Team Providers Care Power Machine Operator Name Role Phone Bhargav Farias Primary Care Provider [phone] Allergies Allergen (clinical drug ingredient) Drug/Non Drug Allergy documented on EMR Reaction Allergy Type Onset Date Status amoxicillin Amoxicillin hives Drug Allergy Act odette cefdinir Cefdinir hives Drug Allergy Active lisinopril Lisinopril cough Drug Allergy Activ e clindamycin Clindamycin upset stomach Drug Allergy Active Results Component Value Reference Range Notes Urinalysis - Inhouse Reviewed date:09/23/2024 10:18:28 AM Interpretation:trace leuk Performing Lab: Notes/Report: trace leuk Color/Clarity yellow/clear Leuk trace Nitrite neg Urobili 3.2 Protein neg pH 6.5 Blood neg Sp. Gr. 1.020 Ketone neg Bili neg Gluc neg Glucose (In-House) Reviewed date:09/23/2024 10:18:28 AM Interpretation:124 Performing Lab: Notes/Report: 124 blood glucose 124 74 - 106 mg/dL CBC Venipuncture (in house) Reviewed date:09/23/2024 10:18:28 AM Interpretation:Normal Performing Lab: Notes/Report: Normal wbc 9.4 3.5 - 10 lymph 21.3 15 - 50 mid 5.7 2 - 15 gran 73.0 35 - 80 rbc 4.99 3.5 - 5.5 hgb 14.7 11.5 - 16.5 hct 42.6 35 - 55 mcv 85.3 75 - 100 mch 29.5 25 - 35 mchc 34.6 31 - 38 platlet 263 100 - 400 Glycohemoglobin A1c (in hous e) Reviewed date:09/23/2024 10:18:28 AM Interpretation:5.9% Performing Lab: Notes/Report: 5.9% glycohemoglobin 5.9% 5 - 6.5 % P-Comprehensive Metabolic Pa karma (CMP) Reviewed date:09/23/2024 10:18:28 AM Interpretation:gluc 100, bun 30, Cr 1.25, gfr 47, alk phos 131 Performing Lab: Notes/Report: Test performed by [facility] [address] [place] [address] , [address], [place] [address] Ralph Wu MD, [employer] CLIA: [id number] Sodium 137 135-145 mmol/L Potassium 4.9 3.5-5.3 mmol/L Chloride 100 97-108 mmol/L CO2 25 20-32 mmol/L Glucose 100 65-99 mg/dL BUN 30 8-23 mg/dL Creatinine 1.25 0.50-1.00 mg/dL Calcium 9.9 8.6-10.4 mg/dL eGFR by Creatinine 47 >59 mL/min/1.73m2 Protein 6.7 6.0-8.3 g/dL Albumin 4.3 3.5-5.3 g/dL Alkaline Phosphatase 131 35-121 IU/L ALT (SGPT) 39 <5-47 IU/L AST (SGOT) 25 <5-40 IU/L Bilirubin, Total 0.4 <0.2-1.2 mg/dL A/G Ratio 1.8 1.1-2.5 P-Culture, Urine Reviewed date:09/24/2024 08:50:51 AM Interpretation:No Significant Growth Performing Lab: Notes/Report: Test performed by [facility] [address] [place] [address] , [address], [place] [address] Ralph Wu MD, Freelance Make[employer] Artist CLIA: [id number] Specimen Source Urine - Void Culture, Urine See Below Final Report : No Significant Growth P-Phosphorus Reviewed date:09/23/2024 10:18:28 AM Interpretation:Normal Performing Lab: Notes/Report: Test performed by [facility] [address] [place] [address] , [place] [address] Ralph Wu MD, Freelance Makeup Artist CLIA: [id number] Phosphorus 3.4 2.5-4.5 mg/dL REASON FOR VISIT 2 weeks Medications Medication SIG (Take, Route, Frequency, Duration) Notes Start Date End Date Status Irbesartan-hydroCHLOROthiaz brittany 300-12.5 MG 1 tablet Orally Once a day; Duration: 30 days Active amLODIPine Besylate 5 MG TAKE 1 TABLET B Y MOUTH ONCE DAILY; Duration: 90 Active Metoprolol Succinate ER 50 MG TAKE 1 TABLET BY MOUTH ONCE DAILY; Duration: 90 Active Myrbetriq 50 MG 1 tablet Orally once daily; Duration: 90 days Active Voltaren 1 % 2 grams Externally f our times a day as needed 05/19/2024 Active Prevacid 24HR 15 MG 2 cap(s) orally once a day Active Fluconazole 100 MG 1 tablet Orally once daily; Duration: 7 days 05/04/2023 Active Flonase Allergy Relief 50 MCG/ACT 1 spray in each nostril Nasally Once a day 01/24/2023 Active Probiotic Formula Ac tive Vital Signs Blood pressure systolic 140 mm Hg 09/23/19 25 Blood pressure diastolic 80 mm Hg 025 Heart Rate 74 /min 09/22/2024 Height 63 in 09/22/2024 Weight 187.6 lbs 09/22/2024 BMI 33.23 kg/m2 09/22/2024 Encounters Encounter Location Date Provider Diagnosis [facility] [address] [facility] [address] [place] [id number] 09/22/2024 Bhargav Farias Acute UTI N39.0 ; Hyperglycemia R73.9 ; Stage 3a chronic kidney disease (CKD) N18.31 and Elevated LFTs R79.89 Assessments Encounter Date Diagnosis (ICD Code) Assessment Notes Treatment Notes Treatment Clinical Notes Section Notes 09/22/2024 Acute UTI (ICD-10 - N39.0) 09/22/2024 Hyperglycemia (ICD-10 - R73.9) 09/22/2024 Stage 3a chronic kidney disease (CKD) (ICD-10 - N18.31) 09/22/2024 Elevated LFTs (ICD-10 - R79.89) Plan Of Treatment Next Appt Details Follow Up: via phone to repo rt test results, Reason: Progress Notes * MAKENZIE ALSTON:1955 ( 69 yo F)Acc No.[id number]:09/22/2024 Progress Notes Patient: MIREYA TAPIA Provider: Kristen Farias M.D. :1955 A ge:69 Y S ex:Female Date:09/22/2024 Address:[address] [place] [address] [id number] Subjective: * Chief Complaints: * 1 . 2 weeks. * HPI: U rology: 69 year old female presents with c/o flank pain P t is here today for a 2 week f/u on UTI. Pt sts her symptoms have improved and she feels as if the UTI has gone away. * ROS: D ERMATOLOGY: no R bryon. [...] T Breast Cyst Removal , [facility]&C- [facility] 10/28/2010, Hysterectomy & Bladder Stapled 05/08/2011, RT Shoulder 10/30/2012, RT Bicep Repair 09/11/2018. * Hospitalization/Major Diagno stic Procedure: V ert[facility]- [facility] [place] [facility] 09/22/2018. * Family History: F ather: alive. M other: . 2 sister(s) . 1 son(s) , 1 daughter(s) . . * Social History: C URRENT TOBACCO USE: No . C affeine: yes, frequency:daily. Home smoke detector [...] tablet Orally Once a day , Discontinued Sulfamethoxazole-Trimethoprim 800-160 MG Tablet 1 tablet Orally twice a day , Medication List reviewed and reconciled with the patient * Allergies: L isinopril: cough - Side Effects, Cefdinir: hives - Allergy, Clindamycin: upset stomach, Amoxicillin: hives. Objective: * Vitals: W t: 187.6, Temp: 97.7, BP: 140/80, HR: 74, O2 Sat: 98% on RA, Nurse: mauro, Ht: 63, BMI:33.23. * Examination: G eneral Examination: General Appearance: N AD. H eart: R SR. L ungs:?clear to auscultation. B ack: n o CVA tenderness. Assessment: * Assessment: 1. A cute UTI - N39.0 (Primary) 2 . H yperglycemia - R73.9 3 . S tage 3a chronic kidney disease (CKD) - N18.31 4 . E levated LFTs - R79.89 Plan: * Treatment: Value Reference Range C ulture, Urine See Below - * S pecimen Source Urine - Void - * Ada Lundberg 09/24/2024 08:50 :46 AM EDT >seeTE ?LAB: Urinalysis - Inhouse (Collection Date & Time - 09/22/2024)?trace leuk * Value Reference Range C olor/Clarity yellow/clear * L euk trace * N itrite neg * U robili 3.2 * P rotein neg * p H 6.5 * B lood neg * S p. Gr. 1.020 * K etone neg * B maldonado neg * G cindy neg * Niki Castro 09/22/2024 11:19 :14 AM EDT > Provider reviewed results while patient in office. Ada Lundberg 09/23/2024 10:18:23 AM EDT > See phone encounter ?LAB: CBC Venipuncture (in house) (Collection Date & Time - 09/22/2024)? Normal* Value Reference Range w bc 9.4 3.5 - 10 * l ymph 21.3 15 - 50 * m id 5.7 2 - 15 * g ran 73.0 35 - 80 * r bc 4.99 3.5 - 5.5 * h gb 14.7 11.5 - 16.5 * h ct 42.6 35 - 55 * m cv 85.3 75 - 100 * m ch 29.5 25 - 35 * m chc 34.6 31 - 38 * p latlet 263 100 - 400 * MatthewNiki 09/22/2024 12:02 :51 PM EDT > Ada Lundberg 09/23/2024 10:18:23 AM EDT > See phone encounter 2.?Hyperglycemia?LAB: Glucose (In-House) (Collection Date & Time - 09/22/2024)?124* Value Reference Range b lood glucose 124 74 - 106 mg/dL * MatthewNiki 09/22/2024 12:01 :59 PM EDT > Ada Lundberg 09/23/2024 10:18:23 AM EDT > See phone encounter ?LAB: Glycohemoglobin A1c (in house) (Collection Date & Time - 09/22/2024)? 5.9%* Value Reference Range g lycohemoglobin 5.9% 5 - 6.5 % * MatthewNiki 09/22/2024 12:03 :55 PM EDT > Ada Lundberg 09/23/2024 10:18:23 AM EDT > See phone encounter 3.?Stage 3a chronic kidney disease (CKD)?LAB: P-Comprehensive Metabolic Panel (CMP) (Collection Date & Time - 09/22/2024 10:35 AM)?gluc 100, bun 30, Cr 1.25, gfr 47, alk phos 131* Value Reference Range A /G Ratio 1.8 1.1-2.5 - * A lbumin 4.3 3.5-5.3 - g/dL * A lkaline Phosphatase 131 H 35-121 - IU/L * A LT (SGPT) 39 <5-47 - IU/L * A ST (SGOT) 25 <5-40 - IU/L * B ilirubin, Total 0.4 <0.2-1.2 - mg/dL * B UN 30 H 8-23 - mg/dL * C alcium 9.9 8.6-10.4 - mg/dL * C hloride 100 97-108 - mmol/L * C O2 25 20-32 - mmol/L * C reatinine 1.25 H 0.50-1.00 - mg/dL * G lucose 100 H 65-99 - mg/dL * P otassium 4.9 3.5-5.3 - mmol/L * S odium 137 135-145 - mmol/L * P rotein 6.7 6.0-8.3 - g/dL * e GFR by Creatinine 47 L >59 - mL/min/1.73m2 * Ada Lundberg 09/23/2024 10:18 :23 AM EDT > See phone encounter ?LAB: P-Phosphorus (Collection Date & Time - 09/22/2024 10:35 AM)?Normal* Value Reference Range P hosphorus 3.4 2.5-4.5 - mg/dL * Ada Lundberg 09/23/2024 10:18 :23 AM EDT > See phone encounter 4.?Elevated LFTs?LAB: P-Comprehensive Metabolic Panel (CMP) (Collection Date & Time - 09/22/2024 10:35 AM)?gluc 100, bun 30, Cr 1.25, gfr 47, alk phos 131* Value Reference Range A /G Ratio 1.8 1.1-2.5 - * A lbumin 4.3 3.5-5.3 - g/dL * A lkaline Phosphatase 131 H 35-121 - IU/L * A LT (SGPT) 39 <5-47 - IU/L * A ST (SGOT) 25 <5-40 - IU/L * B ilirubin, Total 0.4 <0.2-1.2 - mg/dL * B UN 30 H 8-23 - mg/dL * C alcium 9.9 8.6-10.4 - mg/dL * C hloride 100 97-108 - mmol/L * C O2 25 20-32 - mmol/L * C reatinine 1.25 H 0.50-1.00 - mg/dL * G lucose 100 H 65-99 - mg/dL * P otassium 4.9 3.5-5.3 - mmol/L * S odium 137 135-145 - mmol/L * P rotein 6.7 6.0-8.3 - g/dL * e GFR by Creatinine 47 L >59 - mL/min/1.73m2 * Ada Lundberg 09/23/2024 10:18 :23 AM EDT > See phone encounter * Procedure Codes: G 2211 Complex e/[place], [address] Urinalysis, no micro, 11698 CBC WITH AUTO DIFF, 64466 GLUCOSE TEST, 02009 GLYCATED HEMOGLOBIN TEST, Modifiers: QW , 3044F HG A1C LEVEL LT 7.0%, 1036F TOBACCO NON-USER * Follow Up: v ia phone to report test results * Images: Billing Information: * Visit Code: 59912 Office Visit, Est Pt., Level 4. * Procedure Codes: G2211 Complex e/[place] [address] Urinalysis, no micro. 64085 CBC WITH AUTO DIFF. 87964 GLUCOSE TEST. 52412 GLYCATED HEMOGLOBIN TEST. Modifiers: QW 3044F HG A1C LEVEL LT 7.0%. 1036F TOBACCO NON-USER. * Electronic signature of Aggie Farias MD on 09/30/2024 at 03:11 PM EDT Sign off status: Pending * Provider: Kristen Farias M.D. Date: 09/22/2024 Generated for Liv miller/Faartemg/eTransmitting on: 09/30/2024 03:11 PM EDT History and Physical Notes * HPI (History of Present Illness) Category Sub-Category Detail Notes Category Not es Urology flank pain Pt is here today for a 2 week f/u on UTI. Pt sts her symptoms have improved and she feels as if the UTI has gone away Examination Category Sub-Category Detail Notes Category Not es General Examination Heart: RSR Lungs: clear to auscultatio n General Appearance: NAD Back: no CVA tenderness
--- NOTE | 2024-09-30 15:09 | MM_ITS ---
PROCEDURE INFORMATION: Exam: MG Bilateral Screening 3D Mammography Exam date and time: 09/30/2024 3:13 PM Age: 69 years old Clinical indication: Screening mammogram TECHNIQUE: Imaging protocol: Bilateral Screening tomosynthesis and 2D mammography including computer-aided detection (CAD) when performed. COMPARISON: 1. MG MM DIG SCREENING MAMM BI W/CAD 09/19/2023 7:48 AM 2. MG MM DIG SCREENING MAMM BI W/CAD 03/06/2022 8:08 AM 3. MG MM DIG SCREENING MAMM BI W/CAD 11/01/2020 8:32 AM 4. MG MM DIG SCREENING MAMM BI W/CAD 02/14/2019 10:02 AM FINDINGS: MAMMOGRAPHY: Breast composition: There are scattered areas of fibroglandular density. Mass: None. Architectural distortion: No new or suspicious architectural distortion. Calcifications: No new or suspicious calcifications are present Asymmetric density: No new or suspicious asymmetric density is present Skin thickening: None. Axillary adenopathy: None. IMPRESSION: No mammographic evidence of malignancy. Recommend annual screening mammography unless otherwise clinically indicated. ASSESSMENT: BI-RADS category 1: Negative.
--- OUTSIDE RECORDS SUMMARY | 2024-09-30 15:11 | XMS_ITS | Encounter Summary ---
Author Organization [facility] Address [address] [place] [id number] Care Team Providers Care Biostatistics Director Name Role Phone Bhargav Farias MD Primary Care Provider + [phone] Encounter Details Date Type Department Care Team (Late st Contact Info) Description 09/23/2024 Results Follow-Up [facility] [address] [facility] [address] [place] [address] Ada Lu APRN 1700 [facility] [address] [place] [address] Social History Tobacco Use Types Packs/Day Years Used Date Smoking Tobacco: Never Smokeless Tobacco: Never Alcohol Use Standard Drinks/Week Comments No 0 (1 standard drink = 0.6 oz pur e alcohol) Comments No Sex and Gender Information Value Date Recorded Sex Assigned at Not on file Legal Sex Female 1:17 PM EDT Gender Identity Not on file Sexual Orientation Not on file documented as of this encounter Progress Notes * Ada Lu APRN - 09/23/2024 9:19 AM EDT DEXA shows bone density within normal limits. Please continue to be intentional with calcium and vitamin D, as well as weight bearing exercises. documented in this encounter Plan of Treatment Upcoming Encounters Date Type Department Care Team (Late st Contact Info) Description 07/02/2025 9:00 AM EDT Office Visit [facility] [address] [facility] [address] [place] [address] Ada Lu, TIMERS INSPECTOR [address] [facility] [address] [place] [address] documented as of this encounter Visit Diagnoses Not on filedocumented in this encounter Care Teams Biostatistics Director Relationship Specialty Start Date End Date Bhargav Farias MD [address]10 [facility] [address] [facility] [address] [place] [address] PCP - General Family Medicine 02/03/16 documented as of this encounter
--- OUTSIDE RECORDS SUMMARY | 2024-09-30 15:11 | XMS_ITS | Encounter Summary ---
Author Organization [facility] Address [address] [place] [address] Care Team Providers Care Juke Box Servicer Name Role Phone Bhargav Farias MD Primary Care Provider [phone] Encounter Details Date Type Department Care Team ([facility] st Contact Info) Description 07/07/2019 Orders Only External Location [address] [place] [address] Provider, External Social History Tobacco Use Types [...] on filedocumented in this encounter Care Teams Juke Box Servicer Relationship Specialty Start Date End Date Bhargav Farias MD [address] [place] [address] PCP - General 11/02/20 documented as of this encounter
--- OUTSIDE RECORDS SUMMARY | 2024-09-30 15:11 | XMS_ITS | Encounter Summary ---
Author Organization [facility] Address [address] [place] [address] Care Team Providers Care Workforce Management Analyst Name Role Phone Bhargav Farias MD Primary Care Provider [phone] Encounter Details Date Type Department Care Team ([facility] st Contact Info) Description 04/30/2020 Orders Only External Location [address] [place] [address] Provider, External Social History Tobacco Use Types [...] on filedocumented in this encounter Care Teams Workforce Management Analyst Relationship Specialty Start Date End Date Bhargav Farias MD 1210 [facility] [address] [place] [address] PCP - General 11/02/20 documented as of this encounter
--- OUTSIDE RECORDS SUMMARY | 2024-09-30 15:11 | XMS_ITS | Patient Health Record ---
[facility] Address [address] [place] [address] [place] [id number] Care Team Providers Care Branding Specialist Name Role Phone Bhargav Farias Primary Care Provider Allergies Allergen (clinical drug ingredient) Drug/Non Drug Allergy documented on EMR Reaction Allergy Type Onset Date Status amoxicillin Amoxicillin hives Drug Allergy Act odette cefdinir Cefdinir hives Drug Allergy Active lisinopril Lisinopril cough Drug Allergy Activ e clindamycin Clindamycin upset stomach Drug Allergy Active Results Component Value Reference Range Notes Glucose (In-House) Reviewed date:09/23/2024 10:18:28 AM Interpretation:124 Performing Lab: Notes/Report: 124 blood glucose 124 74 - 106 mg/dL Urinalysis - Inhouse Reviewed date:09/23/2024 10:18:28 AM Interpretation:trace leuk Performing Lab: Notes/Report: trace leuk Color/Clarity yellow/clear Leuk trace Nitrite neg Urobili 3.2 Protein neg pH 6.5 Blood neg Sp. Gr. 1.020 Ketone neg Bili neg Gluc neg CBC [...] - 38 plat 179 100 - 400 CBC Fingerstick (in house) [...] - 38 plat 203 100 - 400 X ray : Wrist, left Reviewed date:10/31/2023 02:17:38 PM Interpretation:Negative Performing Lab: Notes/Report: Negative MRI : Wrist, Left, without c ontrast Reviewed date:12/05/2023 03:51:26 PM Interpretation:suboptimal exam due to motion, no injury identified Performing Lab: Notes/Report: suboptimal exam due to motion, no injury identified CBC Fingerstick (in house) Reviewed date:06/28/2024 10:11:16 [...] - 400 CBC Fingerstick (in house) Reviewed date:07/04/2024 12:41:49 [...] - 38 plat 144 100 - 400 Urinalysis - Inhouse Reviewed date:09/08/2024 05:03:46 PM [...] 42 Performing Lab: Notes/Report: Test performed by [facility] [address] [place] [address] , [address], [place] [address] Ralph Wu MD, Ceramic Tile Installation Helper CLIA: [id number] Sodium 137 135-145 mmol/L Potassium 4.1 3.5-5.3 [...] Interpretation: Performing Lab: Notes/Report: Test performed by [facility] [address] [place] [address] , [address], [place] [address] Ralph Wu MD, Ceramic Tile Installation Helper CLIA: [id number] Specimen Source Urine - Void Culture, Urine See Below See Microbiol ogy Report Klebsiella pneumoniae 50,000-100,000 CFU/ml Klebsiella pneumoniae Sensitivity Panel See Below Organism K.pneum Antibiotic INTERP Amikacin S Ampicillin R Aztreonam S Cefepime S Cefoxitin S Ceftazidime S Ceftriaxone S Cefuroxime S Ciprofloxacin S Ertapenem S Gentamicin S Imipenem S Levofloxacin S Meropenem S Nitrofurantoin R Piperacillin/Tazo S Tetracycline S Tobramycin S Trimeth/Sulfa S S=SUSCEPTIBLE I=INTERMEDIATE R=RESISTANT P-Phosphorus Reviewed date:09/10/2024 12:06:32 PM Interpretation:Normal Performing Lab: Notes/Report: Test performed by [facility] [address] [place], [place] [address]Gelesis Anderson , [place] [address] Ralph Wu MD, Ceramic Tile Installation Helper CLIA: [id number] Phosphorus 3.2 2.5-4.5 mg/dL P-Parathyroid Hormone (PTH) Intact Reviewed date:09/10/2024 12:06:32 PM Interpretation:84.6 Performing Lab: Notes/Report: Test performed by [facility] [address] [place] [address] , [address], [place] [address] Ralph Wu MD, Ceramic Tile Installation Helper CLIA: [id number] Parathyroid Hormone (PTH) Intact 84.6 15.0-65.0 pg/mL P-Microalbumin/Creatinine, R andom Urine Sample Reviewed date:09/10/2024 12:06:33 PM Interpretation:Normal Performing Lab: Notes/Report: Test performed by [facility] [address] [place] [address] , [address], [place] [address] Ralph Wu MD, Ceramic Tile Installation Helper CLIA: [id number] Albumin/Creatinine Ratio, Urine 26 0-30 ug/mg Microalbumin, Urine, Random 3.7 Creatinine, Urine 143.5 CBC Venipuncture (in house) Reviewed date:09/23/2024 10:18:28 [...] 131 Performing Lab: Notes/Report: Test performed by [facility] [address] [place] [address] , [address], [place] [address] Ralph Wu MD, Ceramic Tile Installation Helper CLIA: [id number] Sodium 137 135-145 mmol/L Potassium 4.9 3.5-5.3 [...] Growth Performing Lab: Notes/Report: Test performed by [facility] [address] [place] [address] [address], [place] [address] Ralph Wu MD, Ceramic Tile Installation Helper CLIA: [id number] Specimen Source Urine - Void Culture, Urine See Below Final Report : No Significant Growth P-Phosphorus Reviewed date:09/23/2024 10:18:28 AM Interpretation:Normal Performing Lab: Notes/Report: Test performed by [facility] [address] [place] [address] [address] [place] [address] Ralph Wu MD, Ceramic Tile Installation Helper CLIA: [id number] Phosphorus 3.4 2.5-4.5 mg/dL Medications Medication SIG (Take, Route, Frequency, Duration) [...] day 01/24/2023 Active Probiotic Formula Ac tive Immunizations Vaccine Route Administration Date Status Comme nts xFlu shot-36 months and older IM Intramuscular 12/30/2005 Administered xFlu shot-36 months and older IM Intramuscular 01/04/2007 Administered xFlu shot-36 months and older IM Intramuscular 12/22/2009 Administered Tetanus Tdap-Adacel (over 7yrs) IM Intramuscular 12/22/2009 Administered Prevnar (PCV20) IM Intramuscular 11/14/2022 Administered Hepatitis A (adult) Unknown 11/21/2004 Administered Hepatitis A (adult) Unknown 06/21/2005 Administered Fluzone Quad (6months&older) IM Intramuscular 02/14/2019 Administered Fluzone Quad (6months&older) IM Intramuscular 01/23/2020 Administered Fluzone Quad (6months&older) IM Intramuscular 01/27/2021 Administered Fluzone Quad (6months&older) IM Intramuscular 01/17/2022 Administered Fluzone High Dose (65yr and older) IM Intramuscular 11/14/2022 Administered DT, 7 YEARS OR OLDER Unknown 04/23/1996 Administered DT, 7 YEARS OR OLDER Unknown 11/16/2004 Administered COVID 19 Moderna Unknown 04/14/2020 Administered COVID 19 Moderna Unknown 05/19/2020 Administered COVID 19 Moderna Unknown 01/05/2021 Administered Problems Problem Type SNOMED Code ICD Code Onset Dates Problem Status W/U Status Risk Notes Problem Essential hypertension (83959749) Essential hypertension (I10) Active confirmed Problem Restless legs syndrome (31425233) Restless leg syndrome (G25.81) Active confirmed Problem Obese class I (739474581158001) BMI 33.0-33.9,adult (Z68.33) Active confirmed Problem Overactive urinary bladder (disorder) (761461245) OAB (overactive bladder) (N32.81) Active confirmed Problem Seasonal allergic rhinitis (435200811) Seasonal allergic reaction (J30.2) Active confirmed Problem Chronic pain (51207933) Other chronic pain (G89.29) Active confirmed Problem Fatty liver (291440816) Fatty liver (K76.0) Active confirmed Problem Gastroesophageal reflux disease (disorder) (438159838) Chronic GERD (K21.9) Active confirmed Problem Joint laxity of right knee (M23.8X1) Active confirmed Problem Obesity (666722238) Non morbid obesity (E66.9) Active confirmed Problem Seasonal allergic rhinitis (500263826) Seasonal allergic rhinitis, unspecified trigger (J30.2) Active confirmed Problem Allergic rhinitis (18313343) Allergic rhinitis, unspecified seasonality, unspecified trigger (J30.9) Active confirmed Problem Chronic kidney disease stage 3A (disorder) (947832520) Stage 3a chronic kidney disease (CKD) (N18.31) Active confirmed Vital Signs Heart Rate 74 /min 09/22/2024 Blood pressure diastolic 80 mm Hg 09/22/2024 Height 63 in 09/22/2024 Blood pressure systolic 140 mm Hg 09/22/2024 Weight 187.6 lbs 09/22/2024 BMI 33.23 kg/m2 09/22/2024 Encounters Encounter Location Date Provider Diagnosis Michelle 1209 [facility] [address] [place] [id number] 10/19/2023 Bhargav [place] Unspecified fall, initial encounter W19.XXXA ; Unspecified place in unspecified non-institutional (private) residence as the place of occurrence of the external cause Y92.009 ; Abrasion of left forearm, initial encounter S50.812A and Acute pain of left shoulder M25.512 [facility] 120[address] [facility] [address] [place] [id number] 10/29/2023 Bhargav [place] Left wrist pain M25. 532 and Acute rhinitis J00 [facility] [address] [place] [id number] 11/23/2023 Bhargav [place] Pain in left wrist M25.532 ; Joint laxity of left hand M25.242 and Colon cancer screening Z12.11 [facility] 1209 [facility] [address] [place] [id number] 05/19/2024 Bhargav [place] Pes anserinus bursit is of left knee M70.52 and OAB (overactive bladder) N32.81 [facility] 120[address] [facility] [address] [place], [place] [id number] 06/16/2024 Bhargav [place] Acute cough R05.1 [facility] [address] [facility] [address] [place] [id number] 06/27/2024 Bhargav [place] Acute URI J06.9 ; St age 3a chronic kidney disease (CKD) N18.31 ; Essential hypertension I10 ; BMI 33.0-33.9,adult Z68.33 and Non morbid obesity E66.9 [facility] [address] [place], [place] [id number] 07/04/2024 Bhargav [place] Acute URI J06.9 [facility] [address] [place], [place] [id number] 09/08/2024 Bhargav [place] Acute UTI N39.0 ; Essential hypertension I10 ; Stage 3a chronic kidney disease (CKD) N18.31 and Fatty liver K76.0 [facility] [address] [place], [place] [id number] 09/22/2024 Bhargav [place] Acute UTI N39.0 ; Hyperglycemia R73.9 ; Stage 3a chronic kidney disease (CKD) N18.31 and Elevated LFTs R79.89 [facility] [address] [place], [place] [id number] 12/05/2023 Bhargav [place] [facility] [address] [place], [place] [id number] 09/10/2024 Bhargav [place] [facility] [address] [place], [place] [id number] 09/12/2024 Bhargav [place] [facility] [address] [place], [place] [id number] 09/23/2024 Bhargav [place] [facility] [address] [place], [place] [id number] 09/29/2024 Bhargav [place] Assessments Encounter Date Diagnosis (ICD Code) Assessment Notes Treatment Notes Treatment Clinical Notes Section Notes 09/22/2024 Hyperglycemia (ICD-10 - R73.9) 09/22/2024 Acute UTI (ICD-10 - N39.0) 10/19/2023 Unspecified fall, initial encounter (ICD-10 - W19.XXXA) 10/19/[address] in unspecified non-institutional (private) residence as the place of occurrence of the external cause (ICD-10 - Y92.009) 10/29/2023 Acute rhinitis (ICD-10 - J00) fluids, rest, supportive measures for fever/symptom relief 10/29/2023 Left wrist pain (ICD-10 - M25.532) Thumb spica splint 11/23/2023 Pain in left wrist (ICD-10 - M25.532) 11/23/2023 Joint laxity of left hand (ICD-10 - M25.242) 05/19/2024 OAB (overactive bladder) (ICD-10 - N32.81) 05/19/2024 Pes anserinus bursitis of left knee (ICD-10 - M70.52) 06/16/2024 Acute cough (ICD-10 - R05.1) 06/27/2024 Stage 3a chronic kidney disease (CKD) (ICD-10 - N18.31) 07/04/2024 Acute URI (ICD-10 - J06.9) 09/08/2024 Essential hypertension (ICD-10 - I10) 06/27/2024 Acute URI (ICD-10 - J06.9) 09/08/2024 Acute UTI (ICD-10 - N39.0) 09/08/2024 Stage 3a chronic kidney disease (CKD) (ICD-10 - N18.31) 06/27/2024 Essential hypertension (ICD-10 - I10) 11/23/2023 Colon cancer screening (ICD-10 - Z12.11) 10/19/2023 Abrasion of left forearm, initial encounter (ICD-10 - S50.812A) 09/22/2024 Stage 3a chronic kidney disease (CKD) (ICD-10 - N18.31) 09/22/2024 Elevated LFTs (ICD-10 - R79.89) 10/19/2023 Acute pain of left shoulder (ICD-10 - M25.512) symptomatic treatment of pain. Return if worsening of pain or developement of new symptoms 06/27/2024 BMI 33.0-33.9,adult (ICD-10 - Z68.33) 09/08/2024 Fatty liver (ICD-10 - K76.0) 06/27/2024 Non morbid obesity (ICD-10 - E66.9) Plan Of Treatment Pending Test Test Name Order Date colonoscopy 11/23/2023 Insurance Providers Payer Name Payer Address Payer Phone Subscriber Number Group Number Insured Name Patient Relationship to Insured Coverage Start Date Coverage End Date [employer] (MEDICAR E) [address] [address] [place] [address] [id number] ARIANNA ALSTON Spouse - patient is the [...] Date(Month/Year) LT Breast Cyst Removal [facility]&C- [facility] 10/28/2010 Hysterectomy & Bladder Stapled 2 RT Shoulder 10/30/2012 RT Bicep Repair 09/11/2018 Hospitalization History Reason Date(Month/Year) [facility] 09/22/2018
--- OUTSIDE RECORDS SUMMARY | 2024-09-30 15:11 | XMS_ITS | Encounter Summary ---
Author Organization [facility] Address [address] [place] [address] Care Team Providers Care Complex Care Nurse Name Role Phone Bhargav Farias MD Primary Care Provider [phone] Encounter Details Date Type Department Care Team ([facility] st Contact Info) Description 04/30/2020 Orders Only External Location [address] [place] [address] Provider, External Social History Tobacco Use Types [...] on filedocumented in this encounter Care Teams Complex Care Nurse Relationship Specialty Start Date End Date Bhargav Farias MD 1210 [facility] [address] [place] [address] PCP - General 11/02/20 documented as of this encounter
--- OUTSIDE RECORDS SUMMARY | 2024-09-30 15:11 | XMS_ITS | Clinical Summary ---
Author Organization [facility] Address [address] [place] [address] Care Team Providers Care Police Radio Dispatcher Name Role Phone Bhargav Farias MD Primary Care Provider + [phone] Allergies Active Allergy Reactions Criticality Noted Date [...] Description 09/04/2024 8:30 AM EDT Office Visit [facility] Surgery [facility] Medicine [address], [address] [place] [address] Franky Platt MD Primary osteoarthritis [...] Screening 1957 [facility]-Medicare Annual Wellness (AWV) 1957 [facility]-Infant/Child/Adol SDOH Screenings 1957 [facility]- SDOH Screenings 09/17/1975 [facility]-Adult SDOH Screenings 09/17/1975 CT Colonography 2002 Colonoscopy 2002 FIT-DNA 2002 FIT 2002 FOBT 2002 Sigmoidoscopy 2002 [facility]-Colorectal Cancer Screening 2002 [facility]-Breast Cancer Screening 09/17/2007 [facility]-Zoster Vaccines (1 of 2) 09/17/2007 [facility]-DTaP,Tdap,and Td Vaccines (2 - Td or Tdap) 12/23/2019 12/22/2009, 11/16/2004, 04/23/1996 [id number]-80 Vaccine (4 - season) 2023 01/05/2021, 05/19/2020, [...] Procedure Name Priority Date/Time Associated Diagnosis Comments RI ARTHROCENTESIS ASPIR&/INJ MAJOR JT/BURSA W/O US Routine 09/04/2024 8:50 AM EDT Primary osteoarthritis of one knee, right from Last 3 Months Results * RI ARTHROCENTESIS ASPIR&/INJ MAJOR JT/BURSA W/O US (09/04/2024 [...] to verify the correct patient, procedure, equipment, academic support assistant and site/side marked as required. Patient was prepped and draped in the usual sterile fashion. Franky Platt MD IN CLINIC/BEDSIDE ORDERABLES Fin al Result from Last 3 Months Insurance [employer] MEDICARE Care Teams Police Radio Dispatcher Relationship Specialty Start Date End Date Bhargav Farias MD [facility] [address] [address] PCP - General 11/02/20
--- OUTSIDE RECORDS SUMMARY | 2024-09-30 15:11 | XMS_ITS | Encounter Summary ---
Author Organization Healthcare Address [address] [place] [address] Care Team Providers Care Financial Accounting Manager Name Role Phone Bhargav Farias MD Primary Care Provider [phone] Encounter Details Date Type Department Care Team [...] documented as of this encounter Care Teams Financial Accounting Manager Relationship Specialty Start Date End Date Bhargav Farias MD [address] [place] [id number] PCP - General 11/02/20 documented as of this encounter
--- OUTSIDE RECORDS SUMMARY | 2024-09-30 15:11 | XMS_ITS | Clinical Summary ---
Author Organization [facility] Address [address] [place] [address] Care Team Providers Care Corporate Treasury Analyst Name Role Phone Bhargav Farias MD Primary Care Provider + [phone] Allergies Active Allergy Reactions Criticality Noted Date [...] (Two) Times a Day. 60 g 3 Active benzonatate (TESSALON) 200 MG capsule Take [...] Encounters Date Type Department Care Team Description 09/23/2024 Results Follow-Up [facility] O[facility]YN [address] [place] [address] Ada Lu, JAE from Last 3 Months Family History Medical [...] Description 07/02/2025 9:00 AM EDT Office Visit [facility] [address] [place] [address] Ada Lu, JAE [address] [facility] [address] [place] [address] Health Maintenance Due Date Last Done Comments COLOGUARD 2002 COLON CANCER SCREENING 5 YEA [...] , 02/14/2019 MAMMOGRAM 09/18/2025 09/19/2023, 01/20, 01/31/2016 DXA SCAN 09/22/2026 09/22/2024 Pneumococcal Vaccine 50+ Completed 11/14/2022 Procedures Procedure Name Priority Date/Time Associated Diagnosis Comments SCANNED - DEXA 09/22/2024 SCANNED - MAMMO 09/19/2023 from Last 3 Months or Most Recently Relevant to Health Maintenance Results * DEXA Scan (09/22/2024) Anatomical Region Laterality Modality Other us Ada Lu APRN CHART REVIEW TABS Final R esult * MAMMO Scan (09/19/2023) Anatomical Region Laterality Modality Other us Rhina Pacheco APRN CHART REVIEW TABS F inal Result from Last 3 Months or Most Recently Relevant to Health Maintenance [place] [address] Medicare Advantage GROUP PPO Care Teams Corporate Treasury Analyst Relationship Specialty Start Date End Date Bhargav Farias MD [address] [facility] [address] [place] [id number] PCP - General Family Medicine 02/03/16
--- OUTSIDE RECORDS SUMMARY | 2024-09-30 15:11 | XMS_ITS | Encounter Summary ---
Author Organization Healthcare Address [address] [place] [place] [id number] Care Team Providers Care Roof Fitter Name Role Phone Bhargav Farias MD Primary Care Provider [phone] Encounter Details Date Type Department Care Team ([facility] st Contact Info) Description 04/09/2023 Orders Only External Location [address] [place] [address] Bhargav Farias MD [address] [facility] [address] [id number] Social History Tobacco Use Types Packs/Day Years [...] documented as of this encounter Care Teams Roof Fitter Relationship Specialty Start Date End Date Bhargav Farias MD [address] [place] [address] PCP - General 11/02/20 documented as of this encounter
== END 2024-09-30 23:59 | disposition home or self-care (01) ==
LOC: RAD 15:07
PROVIDERS: PCP Family Medicine; Visit Provider Nurse Practitioner Women's Health
DX: Z12.31 Encounter for screening mammogram for malignant neoplasm of breast (principal); R92.323 Mammographic fibroglandular density, bilateral breasts
CPT/HCPCS: 77063; 77067

== ENCOUNTER 2025-01-19 22:13 | Emergency (ER) | payer MEDICARE, SELFPAY ==
[2025-01-19 22:23] VITALS: BP 203/75; PULSE 77; RESP 16; TEMP 36.8; O2SAT 97; BMI 31.8
--- NOTE | 2025-01-19 22:26 | XR_ITS ---
PROCEDURE INFORMATION: Exam: XR Left Elbow Exam date and time: 01/19/2025 10:42 PM Age: 69 years old Clinical indication: Pain; Elbow; Left; Additional info: Fall, left elbow pain TECHNIQUE: Imaging protocol: Radiologic exam of the left elbow. Views: 1 or 2 views. COMPARISON: CR XR ELBOW LT MIN 3V 10/16/2023 6:54 PM FINDINGS: Bones/joints: Normal. Soft tissues: Normal. IMPRESSION: No acute findings.
--- NOTE | 2025-01-19 22:30 | HMH.EDGENADL ---
Discharge Plan Disposition Patient Disposition: Home, Self-Care Prescriptions Prescriptions: No Action nitrofurantoin monohyd/m-cryst 100 mg capsule 100 mg PO Q12H 7 Days Qty: 14 0RF Rx Instructions: must administer with a meal/food fluconazole 100 mg tablet 100 mg PO .COMPLEX 14 Days Qty: 15 0RF Rx Instructions: 100 mg orally Take 2 po day 1, then 1 daily (days 2-14); nystatin 100,000 unit/mL suspension 500,000 unit PO QID 14 Days Qty: 280 0RF Rx Instructions: swish and swallow metoprolol succinate 50 mg tablet extended release 24 hr 50 mg PO DAILY amlodipine 5 mg tablet 5 mg PO DAILY irbesartan-hydrochlorothiazide 300-12.5 mg tablet 300 tab PO DAILY mirabegron [Myrbetriq] 50 mg tablet extended release 24 hr 50 mg PO DAILY Referrals Follow up/Referrals: Bhargav Farias MD [Primary Care Provider, Medical] - See instructions Activity Restrictions/Add. Instructions Additional Instructions/Restrictions: X-ray imaging does not show any fractures. Keep the abrasion clean by using gentle soap and water. Follow-up with your primary care physician as needed. You take Tylenol and ibuprofen to help with pain. If you develop any new or worsening symptoms, or if you become concerned for your health for any reason, return to the emergency department for evaluation Clinical Impressions Clinical Impression: Abrasion of elbow, left Print Language Print Language: Icelandic Discharge ED Provider: Hipolito Granados General Adult HPI General Chief complaint: Extremity Injury, Upper Stated complaint: A/O fell 01-20 hurt LT arm Time Seen by Provider: 01/19/25 22:23 History of Present Illness HPI narrative: Nadeen Pastor is a 69-year-old female with past medical history of hypertension, not on blood thinners who presents to the emergency department approximately 1 hour after falling off of a chair. Patient states that she was up on a chair and missed stepped and fell, landing on her left elbow and then her left hip. She denies any head trauma or loss conscious. She has been ambulatory since. She describes some soreness over the lateral aspect of her left hip but has pain over her left elbow. She denies any numbness or tingling. Related Data Home Medications ?Medication ?Instructions ?Recorded ?Confirmed amlodipine 5 mg tablet 5 mg PO DAILY 12/08/23 09/12/24 irbesartan 300 300 tab PO DAILY 12/08/23 09/12/24 mg-hydrochlorothiazide 12.5 mg tablet metoprolol succinate 50 mg 50 mg PO DAILY 12/08/23 09/12/24 tablet,extended release 24 hr mirabegron 50 mg tablet,extended 50 mg PO DAILY 12/08/23 09/12/24 release 24 hr (Myrbetriq) Previous Rx's ?Medication ?Instructions ?Recorded nitrofurantoin 100 mg PO Q12H 7 days #14 caps 08/30/24 monohydrate/macrocrystals 100 mg capsule fluconazole 100 mg tablet 100 mg PO .COMPLEX 14 days #15 tabs 09/12/24 nystatin 100,000 unit/mL oral 500,000 unit (5 mL) PO QID 14 days 09/12/24 suspension #280 mL Allergies Allergy/AdvReac Type Severity Reaction Status Date / Time amoxicillin Allergy Rash Verified 09/12/24 14:31 cefdinir Allergy Rash Verified 09/12/24 14:31 clindamycin Allergy Gastrointestinal Verified 09/12/24 14:31 Upset Penicillins Allergy Rash Verified 09/12/24 14:31 sulfamethoxazole (From Allergy Rash Verified 09/12/24 14:31 Septra) trimethoprim (From Septra) Allergy Rash Verified 09/12/24 14:31 [facility] Disclaimer: The information contained in this section may have been updated after the patient was seen, as this information can be updated by other users. Medical History Hypertension Surgical History H/O shoulder surgery Right shoulder X2 Hx of tonsillectomy H/O: hysterectomy Family History Father Coronary artery disease Father Kidney disease Other Brain cancer Social History Smoking Status: Never smoker alcohol intake: never substance use type: denies use current occupational status: employed and other Travel in the last 8 weeks?: None Have you lived/traveled outside US in past 30 days?: No Contact w/someone who lives/traveled outside US past 30 days?: No Exposure to someone with infectious disease in past 14 days?: No Do you have a fever (greater than 100.4 F or 38 C)?: No Have you tested positive for COVID-19?: No Exposed to someone with COVID-19 in past 14 days?: No Do you have a sore throat?: No Do you have a cough?: No Do you have any weakness?: No Do you have any diarrhea?: No Are you experiencing any unusual bleeding?: No Do you have any muscle aches/pain?: No Do you have any abdominal pain?: No Are you experiencing loss of taste or smell?: No Other Medical History Have you received the Flu Vaccine for this season: No Have you received the Pneumonia Vaccine: Yes ROS Obtained: Yes Systems reviewed as appropriate & no additional complaints except as documented Physical Exam General General appearance: alert and in no apparent distress Head Head exam: atraumatic Eye Eye exam: Present normal appearance ENT ENT exam: Present normal external ear exam Neck Neck exam: Present full ROM Chest Chest inspection: Present symmetric chest wall rise Respiratory Respiratory exam: Present normal lung sounds bilaterally; Absent respiratory distress Cardiovascular Cardiovascular exam: Present regular rate and normal rhythm Abdominal Exam Abdominal exam: Present soft; Absent tenderness or guarding Extremities Exam Extremities exam: Present normal inspection Expanded Upper Extremity Exam Left: L/R Arms Top View:  1. superficial abrasion, FROM with flexion and extension at the elbow, wrist. 2+ radial pulses Expanded Lower Extremity Exam Left: Comment: Mild tenderness to palpation to left lateral hip without swelling or deformity. Ambulating without difficulty. Back Exam Back exam: Present normal inspection Neurological Exam Neurological exam: Present alert and oriented X3 Psychiatric Psychiatric exam: Present normal affect Skin Skin exam: Present warm and dry Medical Decision Making Medical Records Screening: Per USPSTF and CDC recommendations, given the prevalence of disease in our region, it is our hospital?s policy to screen for HIV and viral Hepatitis for all patients aged 18 and over and those with ongoing risk factors. Melo Inquiry Pt receiving controlled substance: No Vital Signs: 01/19/25 22:23 01/20/25 00:05 Temperature 98.2 F 98.6 F Temperature Source Oral Pulse Rate 60 Pulse Rate [Left] 77 Respiratory Rate 16 18 Blood Pressure 153/59 H Blood Pressure [Right Arm] 203/75 H Blood Pressure Mean [Right Arm] 117 Blood Pressure Source [Right Arm] Automatic Cuff Blood Pressure Position [Right Arm] Sitting 02 Sat by Pulse Oximetry 97 Oxygen Delivery Method Room Air Orders (Tests/Meds): ORDERS Category Date Time Status Elbow XR left 2 views [XR elbow LT 2V] Stat Exams 01/19/25 22:26 Completed Medical Decision Narrative: Nadeen Pastor is a 69-year-old female with past medical history of hypertension, not on blood thinners who presents to the emergency department approximately 1 hour after falling off of a chair. Patient states that she was up on a chair and missed stepped and fell, landing on her left elbow and then her left hip. She denies any head trauma or loss conscious. She has been ambulatory since. She describes some soreness over the lateral aspect of her left hip but has pain over her left elbow. She denies any numbness or tingling. On arrival, patient is hemodynamically stable, no acute distress, breathing comfortably on room air with appropriate oxygen saturation. Physical exam, stated above, revealed an overall well-appearing female in no distress she is ambulating without difficulty. She has a small superficial abrasion over the left lateral elbow but full range of motion at the elbow with flexion extension. Neurovascularly intact distally. No obvious deformity. She has no tenderness over the lateral aspect of her left hip without deformity or swelling. Differential diagnosis includes, but is not limited to: Fracture, soft tissue injury, superficial skin abrasion. Low concern for hip fracture given patient has minimal pain in the hip and has been ambulatory without difficulty. Will obtain left elbow plain films. Patient offered analgesic medication, however she declined at this time. X-ray imaging was interpreted by me personally. No fracture or dislocation is appreciated. See radiology report for details. On reassessment, patient remains in stable condition. I do feel that she is appropriate discharge at this time. Patient states that she has muscle relaxers at home that she has been taking. In addition to this, encouraged her to continue Tylenol and ibuprofen as needed. All questions were answered. Return precautions were given. She demonstrated understanding and was in agreement this plan. She was then discharged from the emergency department in stable condition. Critical Care Critical Care Time Critical Care Time: No
--- OUTSIDE RECORDS SUMMARY | 2025-01-19 22:31 | XMS_ITS | Data Portability ---
Author Organization [facility] Address [address] [place] [address] [address] [place] [address] Assessment No assessment recorded. Plan of Treatment Reminders Order Date Submit Date Provider Last Modified By Organization Details Last Modified Time Details Appointments None recorded. Lab None recorded. Referral None recorded. Procedures None recorded. Surgeries None recorded. Imaging None recorded. Medication Orders ondansetr on 4 mg disintegr ating tablet [address] [place] [address] Pharmacy, [address] [place] [address], [address], 9 14:54:50 Patient TargetsNo targets recorded. Patient Instructions Encounter Date Encounter Id Patient Instructions Last Modified By Organization Details Last Modified Time 09/30/2018 [id number] hearing loss: care instructions [email or web address] Not available 10/01/2018 09:17:28 09/30/2018 [id number] M ni re's disease: care instructions [email or web address] Not available 10/09/2018 12:38:08 hearing loss: care instructions gosetinsky Not available 10/09/2018 12:38:07 nausea and vomiting: care instructions gosetinsky Not available 10/09/2018 12:38:08 dizziness: care instructions gosetinsky Not available 10/09/2018 12:38:07 1. Audiogram obtained; reviewed- type A tymps bilaterally; 15 dbs bilaterally 2. D/C meclizine 3. Rx- ondansetron 4. Discussed sodium intake; Meniere's diet 5. Discussed possible MT placement asalva Not available 09/30/2018 14:51:30 Reason for Referral None Reported. Problems No Known Problems Procedures Surgical History Date Name Laterality Status Provider Name and Address Organization Details Recorded Time 10/02/19 19 Tympanogram completed RADHA TILLMANDWELL, AUD [address] [place], [address], [facility] 10/01/2018 09:17:05 10/02/19 19 Audiogram completed RADHA TILLMANDWELL, AUD [address] [place], [address], [facility] 10/01/2018 09:17:03 tonsillectomy completed [facility] 09/30/2018 14:08:39 Dilation and curettage completed [facility] 09/30/2018 14:08:59 hysterectomy completed [facility] 09/30/2018 14:09:14 Orthopedic Surgery completed [facility] 09/30/2018 14:09:28 Imaging Results None recorded. Procedure Notes None recorded. Medical Equipment None Reported. Allergies Allergen ID Allergen Name Allergen Category Reaction Reaction Severity Criticality Documentation Date Start Date Code Code System Note Provider Name and Address Organization Details Recorded Time [id number] amoxicill in medicatio n Not available Not available Not available 09/30/2018 723 RxNorm [facility] 9 13:57:07 113306 cefdinir medicatio n Not available Not available Not available 09/30/2018 468[facility] 9 13:57:51 472998 clindamyc in Not available Not available Not available Not available 09/30/2018 2582 RxNorm [facility] 9 13:58:00 Medications Name Sig Start Date Stop Date Status Note LastModified by Organization Details LastModified Time promethazine -DM 6.25 mg-15 mg/5 mL oral syrup 09/30 completed Not Available Not Available Not Available azithromycin 250 mg tablet 09/30 completed Not Available Not Available Not Available benzonatate 200 mg capsule active Not Available Not Available Not Available clarithromyc in 500 mg tablet 09/30 completed Not Available Not Available Not Available meloxicam 15 mg tablet active Not Available Not Available No t Available prednisone 20 mg tablet active Not Available Not Available Not Available terbinafine HCl 250 mg tablet 09/30 completed Not Available Not Available Not Available meclizine 25 mg tablet Take 1 tablet by oral route. active Not Available Not Available No t Available dexamethason e 2 mg tablet active Not Available Not Available Not Available promethazine 25 mg tablet 09/30 completed Not Available Not Available Not Available estradiol 0.5 mg tablet active Not Available Not Available Not Available methylpredni solone 4 mg tablets in a dose pack 09/30 completed Not Available Not Available Not Available brompheniram ine-pseudoep hedrine-DM 2 mg-30 mg-10 mg/5 mL oral syrup active Not Available Not Available Not Available ondansetron 4 mg disintegrati ng tablet Take 2 tablets every 12 hours by oral route as needed. 2018 active Not Available Not Available Not Avai lable fluticasone propionate 50 mcg/actuatio n nasal spray,suspen solitario active Not Available Not Available Not Available oxycodone 5 mg tablet 09/30 completed Not Available Not Available Not Available losartan 100 mg-hydrochlo rothiazide 12.5 mg tablet active Not Available Not Available Not Available potassium active Not Available Not Isabel ilable Not Available Prevacid active Not Available Not Avai lable Not Available Vitals Date Recorded Body height Heart rate Body temperature Body mass index (BMI) Body weight Systolic And Diastolic Provider Name and Address Organization Details Last Updated DateTime 9 160.02 cm 110 /min 98.2 [degF] 32.1 kg/m2 43418.2 2 g 146/73 mm[Hg] Mamie [facility] 9 14:10:07 Social History Question Answer Notes LastModified by Organizat ion Details LastModified Time Tobacco Smoking Status Never Smoker [facility] 09/30/2018 14:08:25 How Much Tobacco Do You Chew? None Information not available 09/30/2018 How Much Tobacco Do You Smoke? No Information not available 09/30/2018 Sex: Unknown Functional Status Question Answer Note LastModified by Organization D etails LastModified Time What is your level of alcohol consumption? None Information not available 09/30/2018 Mental Status None recorded. Family History Relationship Description Onset Age of this Age Resolved Age Notes LastModified by Organization Details LastModified Time Mother Family history of malignant neoplasm Not available 2018 14:07:46 Father Heart disease Not available 2018 14:07:58 Father Hypertensive disorder Not available 2018 14:08:04 Father Diabetes mellitus Not available 2018 14:08:13 Father Kidney disease Not available 2018 14:08:18 Medical History Condition Response Cancer Y Bleeding Disorder N Anesthesia Complications N Diabetes N Hypertension Y Gynecological HistoryNo gynecological history recorded. Obstetrics History GPAL:G 0 P 0 0 0 0 Past Encounters Encounter ID Performer Location Encounter Start Date Encounter Closed Date Diagnosis/Indication Diagnosis SNOMED-CT Code Diagnosis ICD10 Code Diagnosis IMO Codes Diagnosis Note [id number] MD [facility] [address] [facility] [place] [address] 09/30/2018 13:40:43 10/10/2018 07:31:56 Sensorineural hearing loss of bilateral ears 686133516 H90.3 L:normal to mild R: normal to moderate Bilateral tinnitus 70996 60018 102 H93.13 Vertigo 050489369 R42 Dizziness 342632573 R42 Vomiting 850530617 R11.1 0 Hyperacusis 40465259 H93 .239 Migraine 83058321 G43.90 9 -possible M ni re's disease 82041645 H81.09 -possible [id number] CYNTHIA [place] [facility] [address] [facility] [place] [address] 10/01/2018 09:16:22 10/01/2018 09:18:37 Vertigo 528569060 R42 Asymmetric al sensorineural hearing loss 981025053 H90.5 Bilateral tinnitus 29782 45986 102 H93.13 Health Concerns Section Related Observation LastModified by Organization Detai ls LastModified Time None Recorded Concern Status LastModified by Organization Details LastModified Time None Recorded Advance Directives Directive None Recorded Payers Insurance Date Sequence Insurance Name Policy Number Policy Engel Covered Member ID Engel Member ID Guarantor Name 01/14/2020 1 [place]: SOLMISAEL [facility] [id number] Cheyenne Pastor [id number] Nadeen Pastor Notes Date Note Type Note Provider Name and Address Organization Details Recorded Time 09/30/2018 text/html Nadeen is a 63 year old female being seen in the office in consultation at the request of Dr. Bhargva Farias for an evaluation of tinnitus and vertigo. Nadeen states that she has been experiencing tinnitus for many years. Last week, she states that she had moved her head to the right and she started experiencing dizziness. She was seen at the and they placed her on meclizine and a steriod. She states that she was fine for two days but experienced another bout of dizziness so severe that she did vomit. She has been taking the meclizine twice daily ever since her appointment. Nadeen does complain of fullness in the right ear. NATASHA OSBORNE MD [facility] [place], [address], [facility] 10/09/2018 12:38:11 OBGyn Episode No OBEpisode recorded.
--- OUTSIDE RECORDS SUMMARY | 2025-01-19 22:31 | XMS_ITS | Clinical Summary ---
Author Organization [facility] Address [address] [place] [address] Care Team Providers Care Breeder Service Technician Name Role Phone Bhargav Farias MD Primary Care Provider + [phone] Allergies Active Allergy Reactions Criticality Noted Date [...] by mouth 4 times a day. Active irbesartan (Avapro) 300 MG tablet Take 1 tablet by mouth. 5 Active traMADol (Ultram) 50 MG tablet every 8 hours. 5 Active tiZANidine (Zanaflex) 4 MG tablet every 8 hours. 5 Active metoprolol succinate XL (Toprol-XL) 200 MG 24 hr tablet 5 Active Hospital, Clinic, or Other [...] Encounters Date Type Department Care Team Description 11/04/2024 8:40 AM EDT Office Visit [facility] Orthopaedic Surgery & Sports Medicine [address] [facility] [address] [facility], [address] [place] [address] Franky Platt MD Disorder of right rotator cuff (Primary Dx) 11/04/2024 8:31 AM EDT - 11/04/2024 11:59 PM EDT Hospital Encounter [facility] X-Ray [address], [address] [place] [address] Right shoulder pain, unspecified chronicity Discharge Disposition: Home or Self Care 11/04/2024 Travel from Last 3 Months Family History [...] Sign Reading Time Taken Comments Blood Pressure 149/70 11/04/2024 8:27 AM EDT Pulse 68 09/13/2023 9:35 AM EDT Temperature 35.9 C (96.6 F) 06/09/2021 11:03 AM EDT Respiratory Rate 20 09/13/2023 9:35 AM EDT Oxygen Saturation 99% 09/13/2023 9:35 AM EDT Inhaled Oxygen Concentration - - Weight 81.6 kg (180 lb) 11/04/2024 8:27 AM EDT Height 160 cm (5' 3 ) 11/04/2024 8:27 AM EDT Body Mass Index 31.89 11/04/2024 8:27 AM EDT Plan of Treatment Upcoming Encounters Date Type Department Care Team (Late st Contact Info) Description 02/03/2025 9:50 AM EST Office Visit [facility] Orthopaedic Surgery & Sports Medicine [address] , [address] [place] [address] Franky Platt MD [address] [place] [address] Health Maintenance Due Date Last [...] Td or Tdap) 12/23/2019 12/22/2009, 11/16/2004, 04/23/1996 [id number] Vaccine ( - 2024- season) 2024 01/05/2021, 05/19/2020, 04/14/2020 [facility]-Influenza Vaccine (#1) 10/20/202401/27, 01/23/2020, 02/14/2019, Additional history exists [facility]-Depression Screening 01/30/2025 01/31/2024 [facility]-RSV Vaccine: 60+ Years or (1 - 1-dose 75+ series) 2032 [facility]-Hepatitis A Vaccines Aged Out 06/21/2005, 04/2004 No longer eligible based on patient's age to complete this topic [facility]-Pneumococcal Vaccine: 50+ Years Completed 11/14/2022 [facility]-Obesity Intervention Completed 025, 09/04/2024, 05/22/2024, Additional history exists HPV Vaccines Aged Out [...] Procedure Name Priority Date/Time Associated Diagnosis Comments AR ARTHROCENTESIS ASPIR&/INJ MAJOR JT/BURSA W/O US Routine 11/04/2024 9:00 AM EDT Disorder of right rotator cuff XR SHOULDER RIGHT 2+ VIEWS Routine 11/04/2024 8:47 AM EDT Right shoulder pain, unspecified chronicity from Last 3 Months Results * AR ARTHROCENTESIS ASPIR&/INJ MAJOR JT/BURSA W/O US (11/04/2024 9:00 AM EDT) Narrative Franky Platt MD - 11/04/2024 9:00 AM EDT Franky Platt MD 11/04/2024 5:38 PM Injection - Large Joint: R subacromial bursa on 11/04/2024 9:00 AM Indications: pain Details: 22 G needle, posterior approach Medications: 40 mg lidocaine 1 %; 20 mg bupivacaine 0.5 %; 80 mg Kenalog-40 40 MG/ML Outcome: tolerated well, no immediate complications Procedure, treatment alternatives, risks and benefits explained, specific risks discussed (Specific risks included flare reaction, increased pain, increased stiffness, injury to surrounding tissues, increased risk of infection, and risk of elevated glucose level.). Consent was given by the patient. Immediately prior to procedure a time out was called to verify the correct patient, procedure, equipment, accounting support specialist and site/side marked as required. Patient was prepped and draped in the usual sterile fashion. us Franky Platt MD IN CLINIC/BEDSIDE ORDERABLES Fin al Result * XR Shoulder Right 2+ Views (11/04/2024 8:47 AM EDT) Anatomical Region Laterality Modality Upper Extremities, Shoulder Right Digi lanre Radiography Impressions 11/04/2024 9:09 AM EDT No acute osseous finding. There may be minimal glenohumeral joint space narrowing. The AC joint is intact with mild degenerative changes. CRITICAL RESULT: No. COMMUNICATION: Per this written report. Drafted by Nelly Rivera MD on 11/04/2024 9:08 AM Final report signed by Nelly Rivera MD on 11/04/2024 9:09 AM Narrative 11/04/2024 9:09 AM EDT CLINICAL INDICATION: pain TECHNIQUE: XR SHOULDER RIGHT 2+ VIEWS COMPARISON: Radiographs from 09/13/2023 FINDINGS: No acute fracture or dislocation. There may be minimal glenohumeral joint space narrowing. The AC joint is intact with mild degenerative changes. Similar mild subacromial narrowing. No acute finding the partially imaged chest. Procedure Note Nelly Rivera MD - 11/04/2024 CLINICAL INDICATION: pain TECHNIQUE: XR SHOULDER RIGHT 2+ VIEWS COMPARISON: Radiographs from 09/13/2023 FINDINGS: No acute fracture or dislocation. There may be minimal glenohumeral jointspace narrowing. The AC joint is intact with mild degenerative changes.Similar mild subacromial narrowing. No acute finding the partially imagedchest. IMPRESSION: No acute osseous finding. There may be minimal glenohumeral joint spacenarrowing. The AC joint is intact with mild degenerative changes. CRITICAL RESULT: No. COMMUNICATION: Per this written report. Drafted by Nelly Rivera MD on 11/04/2024 9:08 AM Final report signed by Nelly Rivera MD on 11/04/2024 9:09 AM Franky Platt MD IMG XR PROCEDURES Final Result from Last 3 Months Insurance MEDICARE Care Teams Breeder Service Technician Relationship Specialty Start Date End Date Bhargav Farias MD [address] [place] [id number] PCP - General 11/02/20
--- OUTSIDE RECORDS SUMMARY | 2025-01-19 22:31 | XMS_ITS | Encounter Summary ---
Author Organization [facility] Address [address] [place] [address] Care Team Providers Care Area Field Worker Name Role Phone Bhargav Farias MD Primary Care Provider [phone] Encounter Details Date Type Department Care Team (Late Contact Info) Description 04/09/2023 Orders Only External Location [address] [place] [address] Bhargav Farias MD [address] [facility] [address] [id number] Social History Tobacco Use Types Packs/Day Years [...] Department Care Team (Late Contact Info) Description 02/03/2025 9:50 AM EST Office Visit [facility] Orthopaedic Surgery & Sports Medicine [address] , [address] [place] [address] Franky Platt MD [address] [place] [address] documented as of this encounter [...] documented as of this encounter Care Teams Area Field Worker Relationship Specialty Start Date End Date Bhargav Farias MD [address] [place] [address] [place] [address] PCP - General 11/02/20 documented as of this encounter
--- OUTSIDE RECORDS SUMMARY | 2025-01-19 22:31 | XMS_ITS | Encounter Summary ---
Author Organization [facility] Address [address] [place] [address] Care Team Providers Care Shingle Cutter Name Role Phone Bhargav Farias MD Primary Care Provider + [phone] Encounter Details Date Type Department Care Team (Late Contact Info) Description 04/30/2020 Orders Only External Location [address] [place] [address] Provider, External Social History Tobacco Use Types [...] Description 02/03/2025 9:50 AM EST Office Visit [facility] Orthopaedic Surgery & Sports Medicine [address] [facility], [address] [place] [address] Franky Platt MD [address] [facility] [address] [place] [address] documented as of this encounter [...] on filedocumented in this encounter Care Teams Shingle Cutter Relationship Specialty Start Date End Date Bhargav Farias MD [address] [place] [address] PCP - General 11/02/20 documented as of this encounter
--- OUTSIDE RECORDS SUMMARY | 2025-01-19 22:31 | XMS_ITS | Clinical Summary ---
Author Organization [facility] Address [address] [place] [address] Care Team Providers Care Academic Registrar Name Role Phone Bhargav Farias MD Primary Care Provider + [phone] Allergies Active Allergy Reactions Criticality Noted Date [...] Date Diagnosed Date Resolved Date Menopause 10/26/2020 Family History Medical History Relation Name Comments [...] Description 07/02/2025 9:00 AM EDT Office Visit [facility] OBGYN [address] [facility] [address] [place] [address] Ada Lu, PROCESS TECH [address] [facility] [address] [place] [address] Health Maintenance Due Date Last Done Comments COLOGUARD 2002 COLON CANCER SCREENING 5 YEA R SIGMOIDOSCOPY 2002 COLONOSCOPY 2002 COLORECTAL CANCER SCREENING 2002 CT COLONOGRAPHY 2002 FECAL OCCULT BLOOD TEST 2002 FIT Testing (1 year) 2002 TDAP/TD VACCINES (1 - Tdap) 11/17/2004 11/16/2004, 0 04/23/1996 ZOSTER VACCINE (1 of 2) 09/17/2007 ANNUAL WELLNESS VISIT 01/10/2016 HEPATITIS C SCREENING 01/10/2016 COVID-19 Vaccine (3 - Modern a risk series) 02/02/2021 01/05/2021, 05/19/2020, 04/14/2020 INFLUENZA VACCINE 09/19/2024 01/27/2021, , 02/14/2019 DXA SCAN 09/22/2026 09/22/2024 MAMMOGRAM 10/08/2026 10/08/2024, 09/19, 09/19/2023, Additional history exists Pneumococcal Vaccine 50+ Completed 11/14/2022 Procedures Procedure Name Priority Date/Time Associated Diagnosis Comments SCANNED - MAMMO 10/08/2024 SCANNED - DEXA 09/22/2024 from Last 3 Months or Most Recently Relevant to Health Maintenance Results * MAMMO Scan (10/08/2024) Anatomical Region Laterality Modality Other Ada Lu [facility] CHART REVIEW TABS Final R esult * DEXA Scan (09/22/2024) Anatomical Region Laterality Modality Other Ada Lu APRN CHART REVIEW TABS Final R esult from Last 3 Months or Most Recently Relevant to Health Maintenance [place] [address] [employer] PPO Care Teams Academic Registrar Relationship Specialty Start Date End Date Bhargav Farias MD [address] [facility] [address] [place] [id number] PCP - General Family Medicine 02/03/16
--- OUTSIDE RECORDS SUMMARY | 2025-01-19 22:31 | XMS_ITS | Encounter Summary ---
Author Organization [facility] Address [address] [place] [address] Care Team Providers Care Oil Speculator Name Role Phone Bhargav Farias MD Primary Care Provider + [phone] Encounter Details Date Type Department Care Team (Late Contact Info) Description 04/30/2020 Orders Only External Location [address] [place] [address] Provider, External Social History Tobacco Use Types [...] Description 02/03/2025 9:50 AM EST Office Visit [facility] Orthopaedic Surgery & Sports Medicine [address] [facility], [address] [place] [address] Franky Platt MD [address] [facility] [address] [place] [address] documented as of this encounter [...] on filedocumented in this encounter Care Teams Oil Speculator Relationship Specialty Start Date End Date Bhargav Farias MD [address] [place] [address] PCP - General 11/02/20 documented as of this encounter
--- OUTSIDE RECORDS SUMMARY | 2025-01-19 22:31 | XMS_ITS | Encounter Summary ---
Author Organization [facility] Address [address] [place] [address] Care Team Providers Care Skein Washer Name Role Phone Bhargav Farias MD Primary Care Provider + [phone] Encounter Details Date Type Department Care Team (Late Contact Info) Description 07/07/2019 Orders Only External Location [address] [place] [address] Provider, External Social History Tobacco Use Types [...] Description 02/03/2025 9:50 AM EST Office Visit [facility] Orthopaedic Surgery & Sports Medicine [address] [facility], [address] [place] [address] Franky Platt MD [address] [facility] [address] [place] [address] documented as of this encounter [...] on filedocumented in this encounter Care Teams Skein Washer Relationship Specialty Start Date End Date Bhargav Farias MD [address] [place] [address] PCP - General 11/02/20 documented as of this encounter
--- OUTSIDE RECORDS SUMMARY | 2025-01-19 22:31 | XMS_ITS | Encounter Summary ---
Author Organization [facility] Address [address] [place] [id number] Care Team Providers Care Transfer Driver Name Role Phone Bhargav Farias MD Primary Care Provider + [phone] Encounter Details Date Type Department Care Team (Late st Contact Info) Description 09/23/2024 Results Follow-Up [facility] OBGYN [address] [facility] [address] [place] [address] Ada Lu APRN [address] [facility] [address] [place] [address] Social History Tobacco Use Types Packs/Day Years [...] 9:00 AM EDT Office Visit [facility] OBGYN [address] [facility] [address] [place] [address] Ada Lu, CORRECTIONAL OFFICER CHIEF [address] [facility] [address] [place] [address] documented as of this encounter Visit Diagnoses Not on filedocumented in this encounter Care Teams Transfer Driver Relationship Specialty Start Date End Date Bhargav Farias MD [address] [facility] [address] [facility] [address] [place] [address] PCP - General Family Medicine 02/03/16 documented as of this encounter
[2025-01-20 00:05] VITALS: BP 153/59; PULSE 60; RESP 18; TEMP 37; O2SAT 100
== END 2025-01-20 00:08 | disposition home or self-care (01) ==
PROVIDERS: Emergency Provider Student in an Organized Health Care Education/Training Program; PCP Family Medicine
DX: M25.522 Pain in left elbow (principal); S50.312A Abrasion of left elbow, initial encounter; W07.XXXA Fall from chair, initial encounter
CPT/HCPCS: 73070; 99283